=== PATIENT | male | born 1945 | race Asian ===

== ENCOUNTER 2017-11-24 11:07 | Inpatient (IN) | payer OTHER ==
[2017-11-24] VITALS (13 sets, daily range): BP systolic 101–149; BP diastolic 56–99; PULSE 89–108; TEMP 36.2–36.8; O2SAT 95–100; BMI 21.3
[~2017-11-24] VITALS: Ht 167.6 cm; Wt 62.3 kg
[~2017-11-24 11:07] MED LIST: ASPI81TA28 PO; CLOP1TAB54 PO; LEVO25TA PO; LPT/40 PO; METO50TA8 PO; NITR0.4S UT
[2017-11-24] MEDS ORDERED: SODIUM CHLORIDE 0.9% 1000ML 1,000 ML IV STA (11:36)
[2017-11-24] MEDS ORDERED: ONDANSETRON INJ 2 MG/ML 2 ML VIAL IV STA (11:36)
[2017-11-24 12:11] LABS: EOS % 0.9 %; HEMOGLOBIN 9.1 g/dL (14.0-18.0); LYMPH % 15.5 %; LYMPH ABS # 1.74 K/uL (1.2-3.4); MEAN CELL VOLUME 78.2 fL (80-100); MEAN CORPUSCULAR HEMOGLOBIN 25.4 pg (25-34); MEAN CORPUSCULAR HGB CONC 32.5 g/dl (32-36); MEAN PLATELET VOLUME 9.6 fL (7.4-10.4); MONO % 7.9 %; MONO ABS # 0.89 K/uL (0.11-0.59); NEUT % 73.9 %; NEUT ABS # 8.31 K/uL (1.4-6.5); PLATELET COUNT 209 K/uL (130-400); RED CELL DISTRIBUTION WIDTH CV 14.3 % (11.5-14.5); RED CELL DISTRIBUTION WIDTH SD 40.8 fL (36.4-46.3); WHITE BLOOD COUNT 11.24 K/uL (4.8-10.8)
[2017-11-24 12:20] LABS: INR 1.1 (0.9-1.1); PTT PATIENT 24.5 SECONDS (21.0-31.0)
--- NOTE | 2017-11-24 12:21 | DIAGNOSTIC IMAGING REPORT ---
SINGLE VIEW CHEST CLINICAL HISTORY: GI bleeding. FINDINGS: An AP, portable, semierect chest radiograph is compared to study dated 12/07/2013. The examination is degraded by portable technique, apical lordotic positioning, and patient rotation. The heart is top normal for projection. The pulmonary vasculature is noncongested. There is chronic elevation right hemidiaphragm. No airspace consolidation or large pleural effusion is identified. No pneumothorax is seen. The skeletal structures are osteopenic. The bony thorax is grossly intact. IMPRESSION: No acute cardiopulmonary abnormality. Electronically signed by: Yassine Moore M.D. 11/24/2017 12:20 PM Dictated Date/Time: 11/24/2017 12:19 PM
[2017-11-24 12:32] LABS: ALBUMIN 2.6 gm/dl (3.4-5.0); CREATININE 1.31 mg/dl (0.60-1.40); POTASSIUM 4.1 mmol/L (3.5-5.1)
[2017-11-24 12:43] LABS: TOTAL PROTEIN 5.6 gm/dl (6.4-8.2)
[2017-11-24] MEDS ORDERED: PRED10TA PO (13:01)
--- NOTE | 2017-11-24 13:21 | History and Physical ---
History & Physical Date & Time of Service: Nov 24, 2017 at 13:21 Chief Complaint: Dizziness,Diarrhea Primary Care Physician: No Doctor, Assigned History of Present Illness Source: patient, family Patient is a 72-year-old male with past medical history CKD III, AAA, CAD s/p CABG and stents, Ischemic Cardiomyopathy, HTN , Hypothyroidism, SVT S/P Ablation , CVA X 2, S/P R carotid endarterectomy and other problems presents with history of black tarry stools, dizziness and diarrhea since 3 days. He reports having loose watery diarrhea 2-3 bowel movements per day, noted to have black colored stools. Reports associated left upper quadrant abdominal discomfort, 4/ 10, nonradiating, no aggravating factors, which improves temporarily with BMs. Denies any nausea, vomiting, fever, chills, NSAIDs use, h/o GI bleed. Last colonoscopy was in 2011 which showed internal hemorrhoids. He is currently on aspirin, Plavix for CAD. He recently completed a prednisone taper course for possible acute gout. He states having severe dizziness since 3 days causing difficulty with ambulation. Denies any history of chest pain, SOB, pedal edema, diaphoresis, cough, hemoptysis, hematuria, fever, chills, fall, head trauma, headache, change in vision, dysuria.He was found to be hypertensive while in the ED which improved with IV fluids. Past Medical/Surgical History Medical Problems: (1) Anemia (2) Anemia (3) Cardiac stent placement (4) CHEST PAIN (5) Chest wall pain (6) Elevated troponin (7) Elevated troponin (8) Hypotension (9) Kidney stent placement (10) Kidney stone (11) Left-sided epistaxis (12) Malfunction of Hunt catheter (13) Malfunction of Hunt catheter (14) Myocardial infarction (15) Renal insufficiency (16) SVT (supraventricular tachycardia) (17) SVT (supraventricular tachycardia) (18) SVT (supraventricular tachycardia) (19) Urinary retention (20) UTI (urinary tract infection) (21) UTI (urinary tract infection) Family History FH: heart disease Kidney disease or stones Reviewed, not relevant. Social History Smoking Status: Former Smoker Smokeless Tobacco Use: No Drug Use: none Marital Status: Occupational Status: retired Immunizations History of Influenza Vaccine: Yes History of Tetanus Vaccine?: unk History of Pneumococcal: No History of Hepatitis B Vaccine: No Allergies Coded Allergies: No Known Allergies (Unverified , 11/24/17) Home Medications Scheduled Aspirin (Aspirin Ec), 81 MG PO DAILY Atorvastatin (Lipitor), 40 MG PO DAILY Clopidogrel Bisulfate (Plavix), 75 MG PO DAILY Finasteride (Finasteride), 5 MG PO DAILY Levothyroxine Sodium (Synthroid), 50 MCG PO QPM Lisinopril (Lisinopril), 10 MG PO DAILY Metoprolol Succ (Toprol Xl) (Toprol-Xl), 50 MG PO DAILY Nitroglycerin (Nitrostat), 0.4 MG UT PRN Miscellaneous Medications Prednisone Tab (Prednisone), 10 MG PO Review of Systems See HPI for pertinent positives & negatives. A total of 10 systems reviewed and were otherwise negative. Physical Exam Vital Signs Date Time Temp Pulse Resp B/P (MAP) Pulse Ox O2 Delivery O2 Flow Rate FiO2 11/24/17 13:16 108 20 85/71 100 Room Air 11/24/17 13:01 98/60 11/24/17 12:51 117 20 11/24/17 12:38 136/83 11/24/17 11:51 106 100 11/24/17 11:46 102 116/69 98 Room Air 11/24/17 11:45 132/72 11/24/17 11:43 102 20 102/72 98 Room Air 11/24/17 11:43 99 11/24/17 11:32 102/72 11/24/17 11:27 100 Room Air 11/24/17 11:17 36.3 111 18 72/48 100 Room Air General Appearance: WD/WN, no apparent distress Head: normocephalic, atraumatic Eyes: normal inspection, PERRL, EOMI ENT: normal ENT inspection, hearing grossly normal Neck: supple, trachea midline Respiratory/Chest: chest non-tender, lungs clear, normal breath sounds, no respiratory distress, no accessory muscle use Cardiovascular: regular rate, rhythm, no edema, no murmur, + tachycardia Abdomen/GI: normal bowel sounds, soft, + tenderness (mild LUQ) Back: normal inspection Extremities/Musculoskelatal: normal inspection, no pedal edema 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, no motor/sensory deficits, alert, normal mood/affect, oriented x 3 Skin: normal color, warm/dry, + pertinent finding (Vertical CABG scar on chest , Surgical Scar on Right side of neck) Diagnostics Laboratory Results Results Past 24 Hours Test 11/24/17 12:01 Range/Units White Blood Count 11.24 4.8-10.8 K/uL Red Blood Count 3.58 4.7-6.1 M/uL Hemoglobin 9.1 14.0-18.0 g/dL Hematocrit 28.0 42-52 % Mean Corpuscular Volume 78.2 80-100 fL Mean Corpuscular Hemoglobin 25.4 25-34 pg Mean Corpuscular Hemoglobin Concent 32.5 32-36 g/dl Platelet Count 209 130-400 K/uL Mean Platelet Volume 9.6 7.4-10.4 fL Neutrophils (%) (Auto) 73.9 % Lymphocytes (%) (Auto) 15.5 % Monocytes (%) (Auto) 7.9 % Eosinophils (%) (Auto) 0.9 % Basophils (%) (Auto) 0.0 % Neutrophils # (Auto) 8.31 1.4-6.5 K/uL Lymphocytes # (Auto) 1.74 1.2-3.4 K/uL Monocytes # (Auto) 0.89 0.11-0.59 K/uL Eosinophils # (Auto) 0.10 0-0.5 K/uL Basophils # (Auto) 0.00 0-0.2 K/uL RDW Standard Deviation 40.8 36.4-46.3 fL RDW Coefficient of Variation 14.3 11.5-14.5 % Immature Granulocyte % (Auto) 1.8 % Immature Granulocyte # (Auto) 0.20 0.00-0.02 K/uL Prothrombin Time 11.2 9.0-12.0 SECONDS Prothromb Time International Ratio 1.1 0.9-1.1 Activated Partial Thromboplast Time 24.5 21.0-31.0 SECONDS Partial Thromboplastin Ratio 0.9 Sodium Level 134 136-145 mmol/L Potassium Level 4.1 3.5-5.1 mmol/L Chloride Level 104 98-107 mmol/L Carbon Dioxide Level 21 21-32 mmol/L Anion Gap 9.0 3-11 mmol/L Blood Urea Nitrogen 49 7-18 mg/dl Creatinine 1.31 0.60-1.40 mg/dl Est Creatinine Clear Calc Drug Dose 43.9 ml/min Estimated GFR () 63.0 Estimated GFR (Non- 54.4 BUN/Creatinine Ratio 37.1 10-20 Random Glucose 219 70-99 mg/dl Calcium Level 8.0 8.5-10.1 mg/dl Total Bilirubin 0.7 0.2-1 mg/dl Aspartate Amino Transf (AST/SGOT) 10 15-37 U/L Alanine Aminotransferase (ALT/SGPT) 20 12-78 U/L Alkaline Phosphatase 71 45-117 U/L Troponin I 0.029 0-0.045 ng/ml Total Protein 5.6 6.4-8.2 gm/dl Albumin 2.6 3.4-5.0 gm/dl Globulin 3.0 2.5-4.0 gm/dl Albumin/Globulin Ratio 0.9 0.9-2 Lipase 123 73-393 U/L Thyroid Stimulating Hormone (TSH) 1.430 0.300-4.500 uIu/ml Free Thyroxine 1.19 0.80-1.60 ng/dl Diagnostic Radiology CXR: No acute cardiopulmonary abnormality EKG EKG: Sinus Tachycardia, QTC:458 Impression Assessment and Plan Melena/GI bleeding Symptomatic Anemia Was on ASA, Plavix for CAD Last Colonoscopy in 2011: Internal hemorrhoids INR:1.1 Hb:9.1 (Prior Hb around 14) 1 Unit PRBC given in ED Monitor H&H Transfuse PRBCs as needed Hold Aspirin, Plavix Avoids NASIDs Started on IV Protonix ggt NPO , IV fluids GI consulted Hypotension: Sinus Tachycardia Secondary to above Hold HTN meds IV fluids with caution as H/O ischemic cardiomyopathy Elevated Blood Sugar Levels: Likely secondary to recent prednisone use check A1C ISS, monitor BGs CKD III Cr stable Monitor renal function CAD s/p CABG and stents Ischemic Cardiomyopathy Held Aspirin, plavix continue metoprolol resume statin as able HTN currently Hypotensive Hold Lisinopril monitor Hypothyroidism: TSH: normal Continue Levothyroxine H/O SVT S/P Ablation continue metoprolol H/O CVA: PAD S/P R carotid endarterectomy ASA, Plavix held Resume statins as able DVT Px: SCDs Code Status: Full Code Disposition: Monitor in Tele Resuscitation Status VTE Prophylaxis Will order VTE Prophylaxis: Yes Reason for no VTE drug order: Contraindicated
[2017-11-24] MEDS ORDERED: DiphenhydrAMINE HCL 50 MG/ML VIAL IV STA (14:18)
[2017-11-24] MEDS ORDERED: ONDANSETRON INJ 2 MG/ML 2 ML VIAL IV PRN (14:30)
[2017-11-24] MEDS ORDERED: ACETAMINOPHEN 325 MG TAB PO PRN (14:30)
[2017-11-24] MEDS ORDERED: PRS5 PO (14:33)
[2017-11-24] MEDS ORDERED: LISI-461 PO (14:34)
[2017-11-24] MEDS ORDERED: ACETAMINOPHEN IV 650 MG in EMPTY BAG 0 ML IV PRN (14:45)
[2017-11-24] MEDS ORDERED: PANTOprazole INJ 80 MG in DEXTROSE 5% 100ML IV ONE (14:45)
[2017-11-24] MEDS ORDERED: GLUCOSE 40% GEL 15 GM TUBE PO PRN (15:00)
[2017-11-24] MEDS ORDERED: DEXTROSE 50% 50 ML SYR IV PRN (15:00)
[2017-11-24] MEDS ORDERED: GLUCAGON FOR INJ 1 MG VIAL SQ PRN (15:00)
[2017-11-24] MEDS ORDERED: GLUCOSE 10 TABS/TUBE PO PRN (15:00)
[2017-11-24] MEDS: PANTOprazole INJ 40 MG in DEXTROSE 5% 100ML IV SCH ×2 (15:23→19:24)
--- NOTE | 2017-11-24 15:35 | EMERGENCY ROOM VISIT NOTE ---
History Report prepared by Pavel: Keny Beckett Under the Supervision of: Dr. Yassine Juan M.D. First contact with patient: 11:28 Chief Complaint: DIZZY Stated Complaint: DIZZINESS,DIARRHEA History of Present Illness The patient is a 72 year old male who presents to the Emergency Room with complaints of intermittent, black, diarrhea beginning three days ago. He currently rates his discomfort a 4/10 in severity. The patient's daughter states he has been complaining of abdominal discomfort and been experiencing black diarrhea. She reports he is currently on aspirin and Plavix, and he has a history of stomach bleeding. The daughter notes he is also very lightheaded and dizzy. She denies loss of consciousness and vomiting. Source of History: family (daughter) Onset: three days ago Symptom Intensity: 4/10 Quality: other (black, diarrhea) Timing: intermittent Associated Symptoms: No LOC, No vomiting Note: Associated symptoms: lightheadedness, dizziness, abdominal discomfort Review of Systems See HPI for pertinent positives & negatives. A total of 10 systems reviewed and were otherwise negative. Past Medical & Surgical Medical Problems: (1) Cardiac stent placement (2) Kidney stent placement (3) Kidney stone (4) Melena (5) Myocardial infarction (6) Urinary retention Family History FH: heart disease Kidney disease or stones Social History Smoking Status: Never Smoker Alcohol Use: none Marital Status: Housing Status: lives with family Occupation Status: retired Current/Historical Medications Scheduled Aspirin (Aspirin Ec), 81 MG PO DAILY Atorvastatin (Lipitor), 40 MG PO DAILY Clopidogrel Bisulfate (Plavix), 75 MG PO DAILY Finasteride (Finasteride), 5 MG PO DAILY Levothyroxine Sodium (Synthroid), 50 MCG PO QPM Lisinopril (Lisinopril), 10 MG PO DAILY Metoprolol Succ (Toprol Xl) (Toprol-Xl), 50 MG PO DAILY Nitroglycerin (Nitrostat), 0.4 MG UT PRN Miscellaneous Medications Prednisone Tab (Prednisone), 10 MG PO Allergies Coded Allergies: No Known Allergies (Unverified , 11/24/17) Physical Exam Vital Signs Date Time Temp Pulse Resp B/P (MAP) Pulse Ox O2 Delivery O2 Flow Rate FiO2 11/24/17 14:21 98 20 100 11/24/17 14:01 123/61 11/24/17 13:31 102/61 11/24/17 13:21 107 20 98 11/24/17 13:16 108 20 85/71 100 Room Air 11/24/17 13:01 98/60 11/24/17 12:51 117 20 11/24/17 12:38 136/83 11/24/17 11:51 106 100 11/24/17 11:46 102 116/69 98 Room Air 11/24/17 11:45 132/72 11/24/17 11:43 102 20 102/72 98 Room Air 11/24/17 11:43 99 11/24/17 11:32 102/72 11/24/17 11:27 100 Room Air 11/24/17 11:17 36.3 111 18 72/48 100 Room Air Physical Exam GENERAL: Patient is in no acute distress. HEENT: No acute trauma, normocephalic atraumatic, mucous membranes moist, no nasal congestion, no scleral icterus. NECK: No stridor, no adenopathy, no meningismus, trachea is midline. LUNGS: Clear to auscultation bilaterally, no wheeze, no rhonchi, breath sounds equal. HEART: Tachycardic rate and regular rhythm. No murmur. ABDOMEN: Soft, nontender, bowel sounds positive, no hernias, no peritonitis. RECTAL: Black stool. Heme positive. EXTREMITIES: No cyanosis or edema, full range of motion of all the joints without pain or difficulty, no signs for acute trauma. NEUROLOGIC: Oriented x 3, no acute motor or sensory deficits, no focal weakness. SKIN: No rash, no jaundice, no diaphoresis. Pale. Medical Decision & Procedures ER Provider Diagnostic Interpretation: X-ray results as stated below per interpretation by me and the radiologist: SINGLE VIEW CHEST CLINICAL HISTORY: GI bleeding. FINDINGS: An AP, portable, semierect chest radiograph is compared to study dated 12/07/2013. The examination is degraded by portable technique, apical lordotic positioning, and patient rotation. The heart is top normal for projection. The pulmonary vasculature is noncongested. There is chronic elevation right hemidiaphragm. No airspace consolidation or large pleural effusion is identified. No pneumothorax is seen. The skeletal structures are osteopenic. The bony thorax is grossly intact. IMPRESSION: No acute cardiopulmonary abnormality. Electronically signed by: Yassine Moore M.D. 11/24/2017 12:20 PM Dictated Date/Time: 11/24/2017 12:19 PM Laboratory Results 11/24/17 12:01 Red Blood Count 3.58, Mean Corpuscular Volume 78.2, Mean Corpuscular Hemoglobin 25.4, Mean Corpuscular Hemoglobin Concent 32.5, Mean Platelet Volume 9.6, Neutrophils (%) (Auto) 73.9, Lymphocytes (%) (Auto) 15.5, Monocytes (%) (Auto) 7.9, Eosinophils (%) (Auto) 0.9, Basophils (%) (Auto) 0.0, Neutrophils # (Auto) 8.31, Lymphocytes # (Auto) 1.74, Monocytes # (Auto) 0.89, Eosinophils # (Auto) 0.10, Basophils # (Auto) 0.00 11/24/17 12:01 Test 11/24/17 12:01 White Blood Count 11.24 K/uL (4.8-10.8) Red Blood Count 3.58 M/uL (4.7-6.1) Hemoglobin 9.1 g/dL (14.0-18.0) Hematocrit 28.0 % (42-52) Mean Corpuscular Volume 78.2 fL (80-100) Mean Corpuscular Hemoglobin 25.4 pg (25-34) Mean Corpuscular Hemoglobin Concent 32.5 g/dl (32-36) Platelet Count 209 K/uL (130-400) Mean Platelet Volume 9.6 fL (7.4-10.4) Neutrophils (%) (Auto) 73.9 % Lymphocytes (%) (Auto) 15.5 % Monocytes (%) (Auto) 7.9 % Eosinophils (%) (Auto) 0.9 % Basophils (%) (Auto) 0.0 % Neutrophils # (Auto) 8.31 K/uL (1.4-6.5) Lymphocytes # (Auto) 1.74 K/uL (1.2-3.4) Monocytes # (Auto) 0.89 K/uL (0.11-0.59) Eosinophils # (Auto) 0.10 K/uL (0-0.5) Basophils # (Auto) 0.00 K/uL (0-0.2) RDW Standard Deviation 40.8 fL (36.4-46.3) RDW Coefficient of Variation 14.3 % (11.5-14.5) Immature Granulocyte % (Auto) 1.8 % Immature Granulocyte # (Auto) 0.20 K/uL (0.00-0.02) Prothrombin Time 11.2 SECONDS (9.0-12.0) Prothromb Time International Ratio 1.1 (0.9-1.1) Activated Partial Thromboplast Time 24.5 SECONDS (21.0-31.0) Partial Thromboplastin Ratio 0.9 Anion Gap 9.0 mmol/L (3-11) Est Creatinine Clear Calc Drug Dose 43.9 ml/min Estimated GFR () 63.0 Estimated GFR (Non- 54.4 BUN/Creatinine Ratio 37.1 (10-20) Calcium Level 8.0 mg/dl (8.5-10.1) Total Bilirubin 0.7 mg/dl (0.2-1) Aspartate Amino Transf (AST/SGOT) 10 U/L (15-37) Alanine Aminotransferase (ALT/SGPT) 20 U/L (12-78) Alkaline Phosphatase 71 U/L (45-117) Troponin I 0.029 ng/ml (0-0.045) Total Protein 5.6 gm/dl (6.4-8.2) Albumin 2.6 gm/dl (3.4-5.0) Globulin 3.0 gm/dl (2.5-4.0) Albumin/Globulin Ratio 0.9 (0.9-2) Lipase 123 U/L (73-393) Thyroid Stimulating Hormone (TSH) 1.430 uIu/ml (0.300-4.500) Free Thyroxine 1.19 ng/dl (0.80-1.60) Laboratory results reviewed by me. Medications Administered Medications (Trade) Dose Ordered Sig/[place] Route Start Time Stop Time Status Last Admin Dose Admin Ondansetron HCl (Zofran Inj) 4 mg NOW STAT IV 11/24/17 11:36 11/24/17 11:40 DC 11/24/17 13:24 4 MG Sodium Chloride 1,000 ml @ 999 mls/hr Q1H1M STAT IV 11/24/17 11:36 11/24/17 12:36 DC 11/24/17 13:18 999 MLS/HR Diphenhydramine HCl (Benadryl Inj) 25 mg NOW STAT IV 11/24/17 14:18 11/24/17 14:20 DC 11/24/17 14:36 25 MG Procedure Central Venous Catheter Indication: Need for IV access. Failed peripheral attempts. Catheter type: Triple lumen catheter Location: Right femoral vein Verbal consent was obtained after the risks and benefits were explained, including but not limited to pneumothorax, hemothorax, vessel injury, bleeding, scarring, infection, pain, and bone/joint/nerve damage. At this time, the risks of the procedure are less than the risks of NOT performing the procedure. A time out was taken and the correct patient and site identified. The patient was placed in the supine position and the skin was prepped in the standard fashion with chlorhexidine and full sterile drapes applied. The proper landmarks were identified with ultrasound, anesthetized with 1% lidocaine without epinephrine, and the needle was inserted through the skin in the standard fashion. The needle was carefully advanced into blood vessel lumen. The guidewire was placed uneventfully. The vessel is dilated and the catheter was placed. It was sutured into position. There was good blood return from all ports. The patient tolerated the procedure well and there were no complications. ECG Per My Interpretation Indication: tachycardia Rate (beats per minute): 102 Rhythm: sinus tachycardia Findings: no ectopy, other (No ST elevation. No PVC.) ED Course 1130: The patient was evaluated in room A04B. A complete history and physical exam was performed. 1136: Ordered Sodium Chloride 1000 ml @ 999 mls/hr IV, Ondansetron HCl 4mg IV 1237: IV team was unsuccessful. I was asked to place a central line. 1307: I was successful at placing the central line. Please refer to the procedure note for more information. I discussed results and treatment plan with the patient. He verbalizes agreement and understanding. The patient will be evaluated for further management. 1319: I discussed the patient's case [facility] The patient will be evaluated for further management and care. 1416: I reevaluated the patient. I also spoke with Dr. Lee again. The patient is going to receive a unit of blood in the ED. I explained the risks and benefits associated with the transfusion. I obtained consent from the patient. Medical Decision The patient is a 72 year old male who presents to the ED with complaints of intermittent, black, diarrhea. Differential diagnoses considered include upper or lower GI bleeding, anemia, electrolyte imbalance, dehydration, coagulopathy, renal or liver failure. There is a mild leukocytosis which could be consistent with infection or the stress of his situation. Hemoglobin is low at 9. No significant electrolyte abnormality or kidney failure. No coagulopathy or hepatitis. EKG shows a sinus tachycardia, no acute ischemia. Chest film does not show pneumonia, mediastinal widening or free air. Cardiac enzyme testing 1 is not consistent with acute cardiac injury. The patient presented tachycardic, hypotensive, pale with black heme positive stool. He was suffering, likely from an upper GI bleed. He received IV saline , IV Zofran. He was eventually given a unit of packed red blood cells, 25 mg of Benadryl was given IV as premedication. The patient did consent to have the blood transfused. The nursing staff and IV staff could not obtain adequate IV access peripherally. I did talk with the patient and family about a central line, they did consent. This line was placed in the right femoral vein without complication. The patient is quite ill and will require a hospital stay, I suspect he will require more than just the 1 unit of packed red blood cells. Workup for the source of bleeding is required. I did speak to case management. The on-call hospitalist was consulted. Medication Reconcilliation Current Medication List: was personally reviewed by me Blood Pressure Screening Patient's blood pressure: Low blood pressure Monitored by the hospitalist. Consults Time Called: 1309 Consulting Physician[facility] Return[facility] Call: [phone] I discussed the patient's case [facility] The patient will be evaluated for further management and care. 1416: I reevaluated the patient. I also spoke with Dr. Lee again. The patient is going to receive a unit of blood in the ED. I explained the risks and benefits associated with the transfusion. I obtained consent from the patient. Impression Primary Impression: GI bleed Additional Impressions: Hypotension Tachycardia Anemia Critical Care I have personally spent greater than 45 minutes of critical care time in the direct management of this patient. This includes bedside care, interpretation of diagnostic studies, and testing, discussion with consultants, patient, and family members, and other required patient management activities. This 45 minutes is in excess of all separately billable procedures. Scribe Attestation The scribe's documentation has been prepared under my direction and personally reviewed by me in its entirety. I confirm that the note above accurately reflects all work, treatment, procedures, and medical decision making performed by me. Departure Information Dispostion Being Evaluated By Hospitalist Referrals No Doctor, Assigned (PCP) Patient Instructions My [facility] Problem Qualifiers
[2017-11-24] MEDS: INSULIN ASPART 100 UNITS/ML 3 ML PEN SC SCH ×3 (16:15→21:00)
[2017-11-24] MEDS: SODIUM CHLORIDE 0.9% 1000ML 1,000 ML IV SCH (17:02)
--- NOTE | 2017-11-24 18:03 | Medical Consult ---
Consultation Note Date of Service Nov 24, 2017. Consultation Note Reason for consult: GIB HPI: 72 yo M with diffuse vasc disease in on Plavix and ASA in USOH until 3 days ago when developed gout, seen by PCP and began prednisone. He reports dizziness upon standing and dark, loose, frequent stools for the past 3 days. On admit this am, he was hypotens with systolic in the 70's improved with IVFs, black stool on rectal exam, had hgb of 9 (last was 12 in 04/14 with MCV 78 and 14 with MCV 78 last February) and BUN 43. Currently, asymptomatic on PPI gtt, normotensive with intermittent tachy. No h/o GIB in the past. Csocpy in 2011 for screening, unremarkable. Denies CP or anginal symptoms, CXR without CHF. He also reports 3 d h/o L flank pain worse with urination and sensation of bladder fullness Past Medical/Surgical History Medical Problems: MD, CKD, Nephrolith, SVT, urinary retention. Family History FH: heart disease Kidney disease or stones Reviewed, not relevant. Social History Smoking Status: Former Smoker Smokeless Tobacco Use: No Drug Use: none Marital Status: Occupational Status: retired Immunizations History of Influenza Vaccine: Yes History of Tetanus Vaccine?: unk History of Pneumococcal: No History of Hepatitis B Vaccine: No Allergies Coded Allergies: No Known Allergies (Unverified , 11/24/17) Home Medications Scheduled Aspirin (Aspirin Ec), 81 MG PO DAILY Atorvastatin (Lipitor), 40 MG PO DAILY Clopidogrel Bisulfate (Plavix), 75 MG PO DAILY Finasteride (Finasteride), 5 MG PO DAILY Levothyroxine Sodium (Synthroid), 50 MCG PO QPM Lisinopril (Lisinopril), 10 MG PO DAILY Metoprolol Succ (Toprol Xl) (Toprol-Xl), 50 MG PO DAILY Nitroglycerin (Nitrostat), 0.4 MG UT PRN Miscellaneous Medications Prednisone Tab (Prednisone), 10 MG PO Review of Systems See HPI for pertinent positives & negatives. A total of 10 systems reviewed and were otherwise negative. Physical Exam H&P v2 Physical Exam Date Time Temp Pulse Resp B/P (MAP) Pulse Ox O2 Delivery O2 Flow Rate FiO2 11/24/17 16:43 36.7 93 20 110/78 (89) 96 Room Air 11/24/17 16:15 36.8 99 18 102/99 (100) 97 Room Air 11/24/17 16:02 97 Room Air 11/24/17 15:44 36.8 93 21 107/59 99 11/24/17 15:44 36.8 91 20 107/59 99 Room Air 11/24/17 15:30 36.7 100 16 111/56 100 11/24/17 15:15 36.7 97 18 110/93 99 11/24/17 15:00 36.7 102 15 102/64 99 11/24/17 14:56 99 Room Air 11/24/17 14:45 36.7 108 16 149/96 100 11/24/17 14:44 36.7 108 16 149/96 99 11/24/17 14:31 98 20 131/73 99 Room Air 11/24/17 14:21 98 20 100 11/24/17 14:01 123/61 11/24/17 13:31 102/61 11/24/17 13:21 107 20 98 11/24/17 13:16 108 20 85/71 100 Room Air 11/24/17 13:01 98/60 11/24/17 12:51 117 20 11/24/17 12:38 136/83 11/24/17 11:51 106 100 11/24/17 11:46 102 116/69 98 Room Air 11/24/17 11:45 132/72 11/24/17 11:43 102 20 102/72 98 Room Air 11/24/17 11:43 99 11/24/17 11:32 102/72 11/24/17 11:27 100 Room Air 11/24/17 11:17 36.3 111 18 72/48 100 Room Air Comfortable, no distress, lying in bed, asking for food Head: normocephalic, atraumatic Eyes: normal inspection, PERRL, EOMI ENT: normal ENT inspection, hearing grossly normal Neck: supple, trachea midline Respiratory/Chest: chest non-tender, lungs clear, normal breath sounds, no respiratory distress, no accessory muscle use Cardiovascular: regular rate, rhythm, no edema, no murmur, Abdomen/GI: normal bowel sounds, soft, mild tenderness in LLQ Back: normal inspection Extremities/Musculoskelatal: normal inspection, no pedal edema 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 RECTAL: no stool in vault Diagnostics H&P v2 Diagnostics Laboratory Results Results Past 24 Hours Test 11/24/17 12:01 Range/Units White Blood Count 11.24 4.8-10.8 K/uL Red Blood Count 3.58 4.7-6.1 M/uL Hemoglobin 9.1 14.0-18.0 g/dL Hematocrit 28.0 42-52 % Mean Corpuscular Volume 78.2 80-100 fL Mean Corpuscular Hemoglobin 25.4 25-34 pg Mean Corpuscular Hemoglobin Concent 32.5 32-36 g/dl Platelet Count 209 130-400 K/uL Mean Platelet Volume 9.6 7.4-10.4 fL Neutrophils (%) (Auto) 73.9 % Lymphocytes (%) (Auto) 15.5 % Monocytes (%) (Auto) 7.9 % Eosinophils (%) (Auto) 0.9 % Basophils (%) (Auto) 0.0 % Neutrophils # (Auto) 8.31 1.4-6.5 K/uL Lymphocytes # (Auto) 1.74 1.2-3.4 K/uL Monocytes # (Auto) 0.89 0.11-0.59 K/uL Eosinophils # (Auto) 0.10 0-0.5 K/uL Basophils # (Auto) 0.00 0-0.2 K/uL RDW Standard Deviation 40.8 36.4-46.3 fL RDW Coefficient of Variation 14.3 11.5-14.5 % Immature Granulocyte % (Auto) 1.8 % Immature Granulocyte # (Auto) 0.20 0.00-0.02 K/uL Prothrombin Time 11.2 9.0-12.0 SECONDS Prothromb Time International Ratio 1.1 0.9-1.1 Activated Partial Thromboplast Time 24.5 21.0-31.0 SECONDS Partial Thromboplastin Ratio 0.9 Sodium Level 134 136-145 mmol/L Potassium Level 4.1 3.5-5.1 mmol/L Chloride Level 104 98-107 mmol/L Carbon Dioxide Level 21 21-32 mmol/L Anion Gap 9.0 3-11 mmol/L Blood Urea Nitrogen 49 7-18 mg/dl Creatinine 1.31 0.60-1.40 mg/dl Est Creatinine Clear Calc Drug Dose 43.9 ml/min Estimated GFR () 63.0 Estimated GFR (Non- 54.4 BUN/Creatinine Ratio 37.1 10-20 Random Glucose 219 70-99 mg/dl Calcium Level 8.0 8.5-10.1 mg/dl Total Bilirubin 0.7 0.2-1 mg/dl Aspartate Amino Transf (AST/SGOT) 10 15-37 U/L Alanine Aminotransferase (ALT/SGPT) 20 12-78 U/L Alkaline Phosphatase 71 45-117 U/L Troponin I 0.029 0-0.045 ng/ml Total Protein 5.6 6.4-8.2 gm/dl Albumin 2.6 3.4-5.0 gm/dl Globulin 3.0 2.5-4.0 gm/dl Albumin/Globulin Ratio 0.9 0.9-2 Lipase 123 73-393 U/L Thyroid Stimulating Hormone (TSH) 1.430 0.300-4.500 uIu/ml Free Thyroxine 1.19 0.80-1.60 ng/dl A/P: Anemia, UGIB - DDX PUD, acid peptic disease - PPI gtt overnight, serial hgb and xfuse for hgb 7-8, EGD tomorrow - Hold ASA/Plavix for now; anticipate early resumption of ASA.
[2017-11-24 19:53] LABS: HEMATOCRIT 29.1 % (42-52); HEMOGLOBIN 9.7 g/dL (14.0-18.0)
[2017-11-25] VITALS (20 sets, daily range): BP systolic 109–168; BP diastolic 63–93; PULSE 70–98; TEMP 36.3–37.1; O2SAT 95–100
[2017-11-25 00:44] LABS: HEMOGLOBIN 9.6 g/dL (14.0-18.0)
[2017-11-25] MEDS: PANTOprazole INJ 40 MG in DEXTROSE 5% 100ML IV SCH ×5 (01:18→21:15)
[2017-11-25] MEDS: SODIUM CHLORIDE 0.9% 1000ML 1,000 ML IV SCH ×2 (05:49→18:09)
[2017-11-25] MEDS: INSULIN ASPART 100 UNITS/ML 3 ML PEN SC SCH ×4 (07:00→21:00)
[2017-11-25 07:08] LABS: BASO % 0.1 %; BASO ABS # 0.01 K/uL (0-0.2); EOS % 2.2 %; EOS ABS # 0.16 K/uL (0-0.5); HEMATOCRIT 28.1 % (42-52); HEMOGLOBIN 9.2 g/dL (14.0-18.0); IG# 0.07 K/uL (0.00-0.02); LYMPH % 21.9 %; MEAN CELL VOLUME 81.9 fL (80-100); MEAN CORPUSCULAR HEMOGLOBIN 26.8 pg (25-34); MEAN CORPUSCULAR HGB CONC 32.7 g/dl (32-36); MONO % 8.6 %; MONO ABS # 0.63 K/uL (0.11-0.59); NEUT % 66.2 %; NEUT ABS # 4.84 K/uL (1.4-6.5); PLATELET COUNT 162 K/uL (130-400); RED CELL DISTRIBUTION WIDTH CV 14.9 % (11.5-14.5); WHITE BLOOD COUNT 7.31 K/uL (4.8-10.8)
[2017-11-25 07:49] LABS: CALCIUM 7.8 mg/dl (8.5-10.1); CREATININE 1.48 mg/dl (0.60-1.40); POTASSIUM 3.9 mmol/L (3.5-5.1)
[2017-11-25] MEDS: METOPROLOL SUCC 50MG EXT REL TAB PO SCH (08:20)
[2017-11-25] MEDS: LEVOTHYROXINE SODIUM INJ 25 MCG in SYRINGE 0 ML IV SCH (08:20)
--- NOTE | 2017-11-25 08:29 | Progress Note ---
Internal Med Progress Note Date of Service: Nov 25, 2017. Provider Documentation: SUBJECTIVE: Seen and examined at bedside States feeling better today Dizziness, abdominal discomfort resolved Had 5 BMs with black stools yesterday Denies chest pain, SOB, nausea Family at bedside No other complaints Planned for EGD later today OBJECTIVE: Vital Signs-as noted below General Appearance: WD/WN, no apparent distress Head: normocephalic, atraumatic Eyes: normal inspection, PERRL, EOMI ENT: normal ENT inspection, hearing grossly normal Neck: supple, trachea midline Respiratory/Chest: chest non-tender, lungs clear, normal breath sounds, no respiratory distress, no accessory muscle use Cardiovascular: regular rate, rhythm, no edema, no murmur Abdomen/GI: normal bowel sounds, soft, non tender Back: normal inspection Extremities/Musculoskelatal: normal inspection, no pedal edema 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 ASSESSMENT & PLAN: Melena/GI bleeding Acute blood loss anemia Was on ASA, Plavix for CAD Last Colonoscopy in 2011: Internal hemorrhoids INR:1.1 Hb:9.2 S/P 2 Unit PRBC Monitor H&H Transfuse PRBCs as needed Hold Aspirin, Plavix Avoids NASIDs Continue IV Protonix ggt NPO , IV fluids Appreciate GI Input Planned for EGD today Abnormal EKG: ST changes in anterior leads Patient denies chest pain/discomfort Troponin X2: negative Trend cardiac enzymes Check ECHO Cardiology consulted Hypotension: Sinus Tachycardia: Secondary to above Resolved Hold HTN meds IV fluids with caution as H/O ischemic cardiomyopathy Elevated Blood Sugar Levels: Likely secondary to recent prednisone use check A1C:pending ISS, monitor BGs CKD III Cr stable Monitor renal function CAD s/p CABG and stents Ischemic Cardiomyopathy Held Aspirin, plavix continue metoprolol resume statin as able HTN Initially presented with Hypotension Hold Lisinopril continue coreg monitor Hypothyroidism: TSH: normal Continue Levothyroxine H/O SVT S/P Ablation continue metoprolol H/O CVA: PAD S/P R carotid endarterectomy ASA, Plavix held Resume statins as able DVT Px: SCDs Code Status: Full Code Disposition: Monitor in Tele Vital Signs: Date Time Temp Pulse Resp B/P (MAP) Pulse Ox O2 Delivery O2 Flow Rate FiO2 11/25/17 16:00 Room Air 11/25/17 15:58 36.5 75 18 146/77 (100) 100 Room Air 11/25/17 14:53 81 18 146/76 (99) 99 Room Air 11/25/17 13:53 74 18 134/72 (92) 99 Room Air 11/25/17 12:56 73 17 168/78 (108) 100 Room Air 11/25/17 12:23 36.5 72 15 147/87 (107) 99 Room Air 11/25/17 12:08 36.5 74 17 136/81 99 11/25/17 12:00 95 Room Air 11/25/17 11:53 74 18 110/80 (90) 97 Room Air 11/25/17 11:38 70 17 115/74 (88) 98 Room Air 11/25/17 11:23 36.4 72 18 111/81 (91) 99 Room Air 11/25/17 11:08 36.5 75 17 112/67 95 11/25/17 11:08 36.5 72 17 112/67 (82) 95 Room Air 11/25/17 10:48 77 18 114/66 (82) 98 Room Air 11/25/17 10:40 36.5 72 16 123/63 100 11/25/17 10:38 74 16 116/65 (82) 98 Room Air 11/25/17 10:10 37.1 75 16 109/65 99 11/25/17 09:55 36.7 84 16 154/93 100 11/25/17 08:00 98 Room Air 11/25/17 06:53 36.7 83 19 142/69 (93) 98 Room Air 11/25/17 04:31 98 Room Air 11/25/17 03:15 36.5 98 20 150/79 (102) 98 Room Air 11/24/17 23:50 95 Room Air 11/24/17 23:33 36.7 89 21 101/58 (72) 95 Room Air 11/24/17 20:00 Room Air 11/24/17 19:39 36.2 89 18 109/65 (80) 96 Room Air Lab Results: Results Past 24 Hours Test 11/24/17 18:46 11/24/17 19:27 11/24/17 20:20 11/24/17 21:00 Range/Units Bedside Glucose 134 179 70-99 mg/dl Hemoglobin 9.7 14.0-18.0 g/dL Hematocrit 29.1 42-52 % Stool Occult Blood NEGATIVE NEGATIVE Test 11/25/17 00:26 11/25/17 00:30 11/25/17 06:07 11/25/17 06:34 Range/Units Hemoglobin 9.6 9.2 14.0-18.0 g/dL Hematocrit 29.0 28.1 42-52 % Bedside Glucose 153 157 70-99 mg/dl White Blood Count 7.31 4.8-10.8 K/uL Red Blood Count 3.43 4.7-6.1 M/uL Mean Corpuscular Volume 81.9 80-100 fL Mean Corpuscular Hemoglobin 26.8 25-34 pg Mean Corpuscular Hemoglobin Concent 32.7 32-36 g/dl Platelet Count 162 130-400 K/uL Mean Platelet Volume 10.0 7.4-10.4 fL Neutrophils (%) (Auto) 66.2 % Lymphocytes (%) (Auto) 21.9 % Monocytes (%) (Auto) 8.6 % Eosinophils (%) (Auto) 2.2 % Basophils (%) (Auto) 0.1 % Neutrophils # (Auto) 4.84 1.4-6.5 K/uL Lymphocytes # (Auto) 1.60 1.2-3.4 K/uL Monocytes # (Auto) 0.63 0.11-0.59 K/uL Eosinophils # (Auto) 0.16 0-0.5 K/uL Basophils # (Auto) 0.01 0-0.2 K/uL RDW Standard Deviation 44.0 36.4-46.3 fL RDW Coefficient of Variation 14.9 11.5-14.5 % Immature Granulocyte % (Auto) 1.0 % Immature Granulocyte # (Auto) 0.07 0.00-0.02 K/uL Sodium Level 143 136-145 mmol/L Potassium Level 3.9 3.5-5.1 mmol/L Chloride Level 113 98-107 mmol/L Carbon Dioxide Level 26 21-32 mmol/L Anion Gap 4.0 3-11 mmol/L Blood Urea Nitrogen 31 7-18 mg/dl Creatinine 1.48 0.60-1.40 mg/dl Est Creatinine Clear Calc Drug Dose 41.3 ml/min Estimated GFR () 54.4 Estimated GFR (Non- 46.9 BUN/Creatinine Ratio 20.9 10-20 Random Glucose 147 70-99 mg/dl Estimated Average Glucose 154 mg/dl Hemoglobin A1c 7.0 4.5-5.6 % Calcium Level 7.8 8.5-10.1 mg/dl Magnesium Level 2.1 1.8-2.4 mg/dl Troponin I 0.036 0-0.045 ng/ml Test 11/25/17 08:03 11/25/17 12:14 11/25/17 14:10 11/25/17 16:26 Range/Units Lab Scanned Report Blood Transfusion Tag [id number] Bedside Glucose 154 146 70-99 mg/dl Hemoglobin 12.0 14.0-18.0 g/dL Hematocrit 35.6 42-52 % Troponin I 0.047 0-0.045 ng/ml
[2017-11-25] MEDS ORDERED: MIDAZOLAM HCL 1 MG/ML 2ML VIAL ONE (09:35)
[2017-11-25] MEDS ORDERED: NITROGLYCERIN/D5W 100MCG/ML 20ML SYR ONE (09:35)
[2017-11-25] MEDS ORDERED: FENTANYL CITRATE INJ 50 MCG/1 ML 2 ML VIAL ONE (09:35)
[2017-11-25] MEDS ORDERED: NiCARDipine HCL INJ 2.5 MG/ML 10 ML AMP ONE (09:35)
[2017-11-25] MEDS ORDERED: HEPARIN SOD (PORCINE) 1000 UNIT/ML 10 ML VIAL ONE (09:35)
[2017-11-25] MEDS ORDERED: DOPamine 400MG / 250ML D5W ONE (10:20)
--- NOTE | 2017-11-25 10:32 | Clinical Documentation Query ---
CLINICAL DOCUMENTATION QUERY 72 yo male admitted with a GI bleed. HGB was 9.1, trending down from 14 and patient received 1 unit PRBCs. In your clinical opinion is this patient being managed for: ( x ) Acute blood loss anemia ( ) Not Agree ( ) Other explanation of clinical findings (Please Explain. If no explanation given, this would be considered a no response.) ( ) Unable to determine ( ) Need to Discuss (Please call CDS via extension or qliq. If no interaction occurs this is considered a no response.) The medical record reflects the following clinical findings, treatment, and risk factors. Clinical Indicators: As above, sinus tachycardia, hypotension Treatment: As above, serial H&H, type and screen 4 units PRBCs, central line Risk Factors: Age, GI bleed Please clarify and document your clinical opinion in the progress notes and discharge summary. Terms such as "probable", "suspected", "likely", "questionable", "possible", or "still to be ruled out" are acceptable. IF IN AGREEMENT, YOU MUST DOCUMENT ABOVE DIAGNOSTIC STATEMENT IN DAILY PROGRESS NOTES AND DISCHARGE SUMMARY. This document is not part of the patient's record. Thank You, Lili Gardner RN [phone]
--- NOTE | 2017-11-25 10:52 | Pre Sedation Assessment ---
Pre Sedation Assessment General Date of Sedation: Nov 25, 2017. Vital Signs Past 12 Hours Date Time Temp Pulse Resp B/P (MAP) Pulse Ox O2 Delivery O2 Flow Rate FiO2 11/25/17 10:48 77 18 114/66 (82) 98 Room Air 11/25/17 10:40 36.5 72 16 123/63 100 11/25/17 10:10 37.1 75 16 109/65 99 11/25/17 09:55 36.7 84 16 154/93 100 11/25/17 06:53 36.7 83 19 142/69 (93) 98 Room Air 11/25/17 04:31 98 Room Air 11/25/17 03:15 36.5 98 20 150/79 (102) 98 Room Air 11/24/17 23:50 95 Room Air 11/24/17 23:33 36.7 89 21 101/58 (72) 95 Room Air Review Cardiovascular: regular rate, rhythm, no edema Lungs: chest non-tender, lungs clear Pre-Sedation Airway Assessment Smoking Status: Former Smoker Hx of Sleep Apnea: No Hx of difficult intubation: No Short Thick Neck: No Thyro-mental Distance: > 3 Finger Breadths Oral Cavity: Dentures Mallampati Classification: Class II ASA Classification: Class III Procedure Planning Contraindications for Sedation: None Current Medications Reviewed: Yes Notes The planned sedation has been discussed with the patient. Informed Consent was obtained. I have identified the patient, determined the appropriateness of sedation and have assessed the patient immediately prior to the procedure. All medicine(s) and interventions are by my order.
--- NOTE | 2017-11-25 10:52 | Post Sedation Assessment ---
Post Sedation Assessment General Date of Sedation Nov 25, 2017. Vital Signs: Vital Signs Past 12 Hours Date Time Temp Pulse Resp B/P (MAP) Pulse Ox O2 Delivery O2 Flow Rate FiO2 11/25/17 10:48 77 18 114/66 (82) 98 Room Air 11/25/17 10:40 36.5 72 16 123/63 100 11/25/17 10:10 37.1 75 16 109/65 99 11/25/17 09:55 36.7 84 16 154/93 100 11/25/17 06:53 36.7 83 19 142/69 (93) 98 Room Air 11/25/17 04:31 98 Room Air 11/25/17 03:15 36.5 98 20 150/79 (102) 98 Room Air 11/24/17 23:50 95 Room Air 11/24/17 23:33 36.7 89 21 101/58 (72) 95 Room Air Post Procedure Recovery Score Activity: (2) Moves 4 extremities * Respiration: (2) Deep breath/cough Circulation: (2) +/-20% PreAnes Value Consciousness: (2) Fully Awake Oxygen Saturation: (2) > 92% On Room Air Post Anesthesia Score: 10 Discharge Sedation Level of Care: Fast Track Phase II Post Sedation Plan On clinical assessment, the patient appears to have tolerated the sedation without complications. Patient is recovering as anticipated. Patient will continue to be monitored by nursing and may be discharged when sedation discharge criteria are met per below protocol. Upon Completions of procedure and additional 15 minutes continue every 5 minute vital signs and the P.A.R. score; then discharge to a Phase I or Fast Track to Phase II per the following guidelines: * Discharge Patient to appropriate Phase II area if PAR is 8 or greater or return to pre- procedure baseline. The post - procedure orders will be as directed. * If PAR score is less than 8 or not return to pre-procedure baseline then patient will follow Phase I monitoring till PAR is reached for Phase II. The Phase I may be done in procedure room or may call to secure a Phase I area. * If naloxone or flumazenil are used for reversal, hold in Phase I for an additional 60 -120 minutes before discharge to Phase II. Please call the Sedation Physician to re-evaluate and complete post-note for discharge to Phase II area. Do NOT discharge from procedure sedation or Phase 1 until post- sedation evaluation note is complete by procedure /sedation MD Sedation Discharge Instructions to be given to the patient at discharge to home.
--- NOTE | 2017-11-25 10:57 | Progress Note ---
Progress Note Date of Service Nov 25, 2017. Progress Note Cardiac cath revealed no significant obstructive lesions to account for ST segment elevations. No intervention necessary. EKG changes likely represent demand ischemia secondary to anemia. Would recommend completing GIB work up as per our GI colleagues. No benefit to delaying GI procedures from cardiac standpoint. Pt is a moderate risk for adverse periprocedural cardiovascular event with risk approx 5%, patient and family state that they understand are accepting of risk and wish to proceed.
--- NOTE | 2017-11-25 10:58 | [facility] Post Operative Brief Note ---
Preliminary Procedure Note Procedure Date Nov 25, 2017. 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 Severe mid LAD in-stent restenosis. ANAND 3 flow distal Moderate to severe disease in dominant, mid circumflex. ANAND 3 flow distal. No acute obstructive disease. OK to proceed with endoscopy Recommendations Medical therapy and/or Counseling Specimens None Anesthesia Moderate Procedural Complication(s) None Disposition PCU
--- NOTE | 2017-11-25 11:13 | Cardiac Catheterization ---
Procedure Note Procedure Date Nov 25, 2017. Pre-Procedure Diagnosis Acute Coronary Syndrome AUC Score 8 Post-Procedure Diagnosis Severe CAD, Normal Intracardiac Pressures Procedure(s) Performed Coronary Angiography, Left Heart Cath, Ultrasound Guided Vascular Access, Bypass Graft Angiography, Femoral Artery Angiography Floor Tech Lisandro Manager [employer](s) [place] Estimated Blood Loss 10 Medication(s) Fentanyl, Versed, Lidocaine 1% Summary of Findings Indication: Anterior ST elevations in setting of acute GI Bleed. Access: 5Fr left FINISH SPECIALIST (ultrasound guided) Catheters: JL4, JR4, LCB, AR1 Findings: LM - Luminal irregularities LAD - 30-40% ostial stenosis; 80-90% focal in-stent restenosis in mid LAD after take-off of 2nd diagonal. Circumflex - Dominant, diffuse 40-50% ostial to mid disease. Prior stent at ostium of high 1st OM is completely occluded. 20% ostial in small OM2. Distal luminal irregularities into L-PDA RCA - Small, non-dominant with luminal irregularities SVG-OM1 -- Widely patent with distal luminal irregularities in OM1 SVG-mid LAD -- Widely patent with 60-70% stenosis at anastomosis; minimal disease in distal LAD as wraps around apex. competitive flow in mid segment. LVEDP - 12 Femoral angiography -- suitable for closure device. mild calcified disease at ostium of external iliac Arterial Closure: Mynx Summary: 1. Severe chronic multivessel coronary artery disease - 80-90% mid LAD in-stent restenosis - 40-50% ostial to mid circumflex. 100% occluded ostial OM1 stent 2. Widely patent vein grafts to OM1, mid LAD (60-70% stenosis at LAD anastomosis ). 3. Normal intracardiac filling pressure Recommendations: Chronic stable disease, no acute obstructive lesions. OK to proceed with endoscopy as needed. Continued ASCVD risk factor modification per Dr. Couch. Hemodynamics Rest Ao: 123/60/87 Final Ao: 88/39/61 LV: 92/12 Recommendations Medical therapy and/or Counseling Specimens None Radiation Exposure (mGy) 1209 Contrast (mls) 95 Fluids (cc crystalloids) 265 Drains None Anesthesia Moderate Procedural Complication(s) None Disposition PCU ACC Data Cardiac Status Clinical evaluation leading to the procedure CAD Presntation: Non STEMI Anginal Classification: CCS I Heart Failure: No, NYHA Class: CCS I Cardiogenic Shock w/in 24Hrs: No Cardiac Arrest w/in 24Hrs: No Imaging studies past 6 months: Yes Stress studies past 6 months: No Closure Device Percutaneous Entry Location: Femoral Closure Device: Mynx Recommendations: Medical therapy and/or Counseling Intraprocedure Events Significant Dissection: No Perforation: No
--- NOTE | 2017-11-25 11:28 | HISTORY & PHYSICAL EXAMINATION ---
DATE OF ADMISSION: 11/25/[address] Chicas. REASON FOR CONSULTATION: EKG changes. HISTORY OF PRESENT ILLNESS: Mr. Ruby is a very pleasant 72-year-old gentleman who normally follows with me as an outpatient for his history of coronary artery disease. He presented to [facility] Emergency Department on 11/24/2017 with the complaints of dark tarry stools, dizziness, and diarrhea for the last few days. The patient notes that his bowel movements changed 3 days ago. His stool turned black. He was having some mild left upper and lower quadrant discomfort that did not radiate into his chest, and he came in to the Emergency Department. Upon arrival, he was found to be significantly anemic. He was given 1 unit of packed red blood cells for hemoglobin of 9.1, and he was admitted to telemetry overnight. Also of note, upon presentation to the ER, his EKG was unremarkable. Patient remained on telemetry overnight, asymptomatic but continued dark tarry stools and diarrhea, but his abdominal discomfort resolved, and then on the morning of 11/25/2017, a routine EKG was performed and showed new ST segment elevations in the anterior leads, with reciprocal ST segment depressions in the lateral leads. I was asked to see the patient urgently. I saw the patient at the bedside and woke him up. His son was present who helped with translation as per the patient request, and the patient says he is feeling fine. He has no complaints of chest pain, shortness of breath, palpitations, diaphoresis, lightheadedness, dizziness, or syncope. States his abdominal discomfort has resolved, and right now, he is feeling fine, and he denies experiencing any chest pain for the last several days. Of note, his hemoglobin only went to 9.2 with 1 unit of packed red blood cells. PAST SURGICAL HISTORY: 1. Coronary artery disease, status post CABG x2 with a vein graft to the LAD and vein graft to OM1 in 2013. 2. Multiple bare metal stent placements to the proximal LAD. 3. History of SVT with bypass tract ablation. 4. Right-sided carotid endarterectomy. MEDICAL ILLNESSES: 1. Coronary artery disease, status post CABG x2 and multiple PCIs to the LAD. 2. Postoperative atrial fibrillation, resolved. 3. History of SVT with a bypass tract, status post ablation. 4. Carotid stenosis, status post right-sided endarterectomy. 5. Ischemic cardiomyopathy, most recent EF 38%. 6. Hypertension. 7. History of tobacco abuse. 8. Miniscule abdominal aortic aneurysm. FAMILY HISTORY: Noncontributory. SOCIAL HISTORY: The patient is a former smoker, quit in 2013. Denies any alcohol or recreational drug use. He is and lives at home with his family. REVIEW OF SYSTEMS: As per HPI. All other review of systems reviewed and negative at this time. ALLERGIES: No known drug allergies. MEDICATIONS AN OUTPATIENT: 1. Aspirin 81 mg daily. 2. Atorvastatin 80 mg daily. 3. Plavix 75 mg daily. 4. Lisinopril 10 mg daily. 5. Toprol-XL 50 mg daily. 6. Proscar daily. 7. Levoxyl daily. PHYSICAL EXAMINATION: VITAL SIGNS: Temperature 36.7, pulse 83, respiratory rate 12, blood pressure 142/69. GENERAL: Awake, alert, oriented x3, in no acute distress. HEENT: Normocephalic and atraumatic. Pupils equal, round, and reactive to light and accommodation. Extraocular muscles intact. Anicteric sclerae. Moist mucous membranes. NECK: No JVD, no bruit. CARDIOVASCULAR: Regular. Positive S4. Normal S1 and S2. No S3. No murmurs or rubs. PULMONARY: Clear to auscultation bilaterally. No rales, rhonchi, or wheezing. ABDOMEN: Bowel sounds x4, soft, mild diffuse tenderness. No rebound or guarding. No organomegaly. EXTREMITIES: No clubbing, cyanosis, or edema. +2 pedal pulses bilaterally. SKIN: Warm and dry. TEST RESULTS: A 12-lead EKG performed on 11/24/2017 at 11:36 independently reviewed at this time, shows sinus tachycardia at 102 beats per minute, normal axis, normal intervals, no signs of ischemia. Repeat EKG performed on 11/25/2017 at 0825 shows greater than [address] segment elevations in leads V2, V3, V4, with ST segment depressions in leads I, aVL, and V6. LABORATORY STUDIES OF SIGNIFICANCE: Hemoglobin 9.2, platelet count 162, INR of 1.1. Sodium 143, potassium 3.9, BUN 31, creatinine 1.5. Most recent 2D echocardiogram performed in June 2016 was read as normal LV chamber size and wall thickness, moderately reduced LV systolic function, EF 38%; moderate to severe hypokinesis of the mid to apical anterior lateral, anterior anteroseptal, inferior septal, and inferior valentine; grade 1 diastolic dysfunction, mild aortic regurgitation. Urgent bedside echocardiogram performed today, preliminary review shows no significant change. IMPRESSION: 1. Asymptomatic ST segment elevations in the anterior leads. 2. History of coronary artery disease with coronary artery bypass graft x2, multiple interventions to the left anterior descending. 3. Ischemic cardiomyopathy, unchanged. 4. Gastrointestinal bleed. 5. Anemia requiring transfusion. RECOMMENDATIONS: It was my pleasure to see Mr. Ruby in consultation today. At this point, the patient is asymptomatic but does have ST segment elevations on his EKG; however, his echocardiogram is unhelpful given the old scar of the anterior wall, so I do not believe the patient is clinically suffering an ST segment elevation PR, however, is most likely more medical representative of type 2 myocardial infarction from demand ischemia with his anemia, so at this point he will be transfused a second unit, will undergo a hopefully only diagnostic only cardiac catheterization without any significant anticoagulation, and should it be unchanged compared to previous, then the patient will be considered an acceptable risk to proceed with further GI studies that are deemed necessary by our gastroenterology colleagues. Otherwise, his aspirin will be continued. His Plavix can be held for now, and further recommendations to follow the cardiac catheterization.
[2017-11-25] MEDS ORDERED: SODIUM CHLORIDE 0.9% 1000ML 1,000 ML IV SCH (12:00)
--- NOTE | 2017-11-25 12:51 | Progress Note ---
Progress Note Date of Service Nov 25, 2017. (Sandra Han CRNP) Progress Note Pt is a 72 y/o male, seen for melena, anemia. Some melena overnight but H/H stable. Initially planned for EGD evaluation today, however needed to undergo cardiac cath this AM. Thus we postponed EGD eval to tomorrow 11/26/17. Pls keep NPO after midnight. Change of plans have been reviewed with pt and his family. (Sandra Han CRNP) I saw and evaluated the patient. Due to his cardiac catheterization this morning we are electing to hold his upper endoscopy till tomorrow as there was concerns about the positioning for the patient. (Pernell Guzman, DO)
[2017-11-25 14:29] LABS: HEMATOCRIT 35.6 % (42-52)
[2017-11-25 19:02] LABS: HEMATOCRIT 35.2 % (42-52); HEMOGLOBIN 11.8 g/dL (14.0-18.0)
[2017-11-26] VITALS (9 sets, daily range): BP systolic 118–155; BP diastolic 65–83; PULSE 66–81; TEMP 36.3–37.1; O2SAT 95–97; Ht 167.6 cm; Wt 62.3 kg
[2017-11-26] MEDS: PANTOprazole INJ 40 MG in DEXTROSE 5% 100ML IV SCH ×5 (01:39→22:30)
[2017-11-26 05:59] LABS: BASO % 0.1 %; BASO ABS # 0.01 K/uL (0-0.2); EOS % 3.5 %; EOS ABS # 0.24 K/uL (0-0.5); HEMATOCRIT 33.4 % (42-52); HEMOGLOBIN 11.2 g/dL (14.0-18.0); IG# 0.05 K/uL (0.00-0.02); LYMPH % 18.1 %; LYMPH ABS # 1.25 K/uL (1.2-3.4); MEAN CELL VOLUME 82.9 fL (80-100); MEAN CORPUSCULAR HEMOGLOBIN 27.8 pg (25-34); MEAN CORPUSCULAR HGB CONC 33.5 g/dl (32-36); MEAN PLATELET VOLUME 10.5 fL (7.4-10.4); MONO % 10.3 %; MONO ABS # 0.71 K/uL (0.11-0.59); NEUT % 67.3 %; NEUT ABS # 4.64 K/uL (1.4-6.5); PLATELET COUNT 149 K/uL (130-400); RED CELL DISTRIBUTION WIDTH CV 14.8 % (11.5-14.5); RED CELL DISTRIBUTION WIDTH SD 44.3 fL (36.4-46.3)
[2017-11-26 06:45] LABS: CALCIUM 8.1 mg/dl (8.5-10.1); CREATININE 1.45 mg/dl (0.60-1.40); POTASSIUM 3.8 mmol/L (3.5-5.1)
[2017-11-26] MEDS: INSULIN ASPART 100 UNITS/ML 3 ML PEN SC SCH ×4 (07:00→21:00)
--- NOTE | 2017-11-26 08:27 | ECHOCARDIOGRAM REPORT ---
*NOTICE TO RECEIVING CONSTITUTION PARTY AGENCY This information is strictly Confidential and protected under [place] law. [place] law prohibits you from making any further disclosure of this information unless further disclosure is expressly permitted by the written consent of the person to whom it pertains or is authorized by law. A general authorization for the release of medical or other information is not sufficient for this purpose. Hospital accepts no responsibility if the information is made available to any other person, INCLUDING THE PATIENT. Interpretation Summary * Name: MIGUEL ACE Study Date: 11/25/2017 09:01 AM BP: 142/69 mmHg * Patient Location: C.2E\S\E203\S\1 HR: 83 * : 1945 (M/d/yyyy) Gender: Male Height: 66 in * Age: 72 yrs Ethnicity: Weight: 141 lb * Ordering Physician: Selwyn Chicas * Referring Physician: Self, Referred * Performed By: Jennifer Benton RCS * * Reason For Study: EKG Changes * BSA: 1.7 m2 * -- Conclusions -- * No change compared to previous study of 07/13. * Normal LV chamber size and wall thickness. * Moderately reduced LV systolic function, EF 35-40%. * Moderate to severe hypokinesis of the mid to apical anterolateral, anterior, anteroseptal, inferoseptal and inferior valentine. * Grade II diastolic dysfunction. * Mild aortic regurgitation. * Trace mitral regurgitation. Procedure Details * A complete two-dimensional transthoracic echocardiogram was performed (2D, M-mode, Doppler and color flow Doppler). Left Ventricle * The left ventricle is normal in size. * There is normal left ventricular wall thickness. * Ejection Fraction = 35-40%. * Left ventricular systolic function is moderately reduced. * Moderate to severe hypokinesis of the mid to apical anterolateral, anterior, anteroseptal, inferoseptal and inferior valentine. Right Ventricle * The right ventricular cavity size is normal (basal dimension <4.2 cm in right ventricular apical 4-chamber view). * The right ventricular systolic function is normal as assessed by tricuspid annular plane systolic excursion (TAPSE) (normal >1.5 cm). Atria * The left atrium is mildly dilated. * Right atrial size is normal. * No ASD detected; PFO is not assessed. Mitral Valve * There is mild mitral annular calcification. * There is no mitral valve stenosis. * There is trace mitral regurgitation. Tricuspid Valve * The tricuspid valve is normal in structure and function. Aortic Valve * The aortic valve is trileaflet. * No hemodynamically significant valvular aortic stenosis. * Mild aortic regurgitation. Pulmonic Valve * The pulmonary valve is not well seen, but the Doppler examination is normal without significant regurgitation or stenosis. Great Vessels * The aortic root and proximal ascending aorta are normal sized. Pericardium/Pleural * There is no pericardial effusion. Left Ventricular Diastolic Function * Diastolic dysfunction, Grade II (pseudonormalization pattern). MMode 2D Measurements and Calculations IVSd 0.77 cm IVSs 0.78 cm LVIDd 3.6 cm LVIDs 2.8 cm LVPWd 0.76 cm LVPWs 0.86 cm IVS/LVPW 1.0 FS 21.2 % EDV(Teich) 53.2 ml ESV(Teich) 29.9 ml EF(Teich) 43.9 % EDV(cubed) 45.4 ml ESV(cubed) 22.2 ml EF(cubed) 51.0 % % IVS thick 0.44 % % LVPW thick 13.8 % LV mass(C)d 72.9 grams LV mass(C)dI 42.3 grams/m\S\2 LV mass(C)s 55.3 grams LV mass(C)sI 32.1 grams/m\S\2 SV(Teich) 23.4 ml SI(Teich) 13.6 ml/m\S\2 SV(cubed) 23.1 ml SI(cubed) 13.4 ml/m\S\2 Ao root diam 3.4 cm Ao root area 9.2 cm\S\2 ACS 1.5 cm LA dimension 4.0 cm asc Aorta Diam 3.0 cm LA/Ao 1.2 EDV(MOD-sp4) 88.0 ml ESV(MOD-sp4) 47.0 ml EF(MOD-sp4) 46.6 % EDV(MOD-sp2) 94.0 ml ESV(MOD-sp2) 57.0 ml EF(MOD-sp2) 39.4 % SV(MOD-sp4) 41.0 ml SI(MOD-sp4) 23.8 ml/m\S\2 SV(MOD-sp2) 37.0 ml SI(MOD-sp2) 21.5 ml/m\S\2 Doppler Measurements and Calculations MV E max maia 114.3 cm/sec MV A max maia 92.7 cm/sec MV E/A 1.2 MV P1/2t max maia 124.0 cm/sec MV P1/2t 78.7 msec MVA(P1/2t) 2.8 cm\S\2 MV dec slope 461.8 cm/sec\S\2 MV dec time 0.16 sec Ao V2 max 131.4 cm/sec Ao max PG 6.9 mmHg Ao max PG (full) 4.5 mmHg AI max maia 434.8 cm/sec AI max PG 75.6 mmHg AI dec slope 345.3 cm/sec\S\2 AI P1/2t 368.8 msec LV V1 max PG 2.4 mmHg LV V1 max 77.3 cm/sec PA V2 max 72.0 cm/sec PA max PG 2.1 mmHg TR max maia 267.6 cm/sec
[2017-11-26] MEDS: SODIUM CHLORIDE 0.9% 1000ML 1,000 ML IV SCH ×2 (08:44→20:11)
[2017-11-26] MEDS: LEVOTHYROXINE SODIUM INJ 25 MCG in SYRINGE 0 ML IV SCH (08:46)
[2017-11-26] MEDS: METOPROLOL SUCC 50MG EXT REL TAB PO SCH (08:46)
[2017-11-26] MEDS ORDERED: PROPOFOL IV EMULSION 10 MG/ML 20 ML VIAL ONE (09:48)
[2017-11-26] MEDS ORDERED: LIDOCAINE HCL 2% 2 ML VIAL (20MG/ML) ONE (09:48)
--- NOTE | 2017-11-26 10:19 | GI REPORT ---
Patient Name: Willian Ruby Procedure Date: 11/26/2017 9:39 AM Date of : 1945 Admit Type: Inpatient Age: 72 Gender: Male Attending MD: Pernell Guzman DO Procedure: Upper GI endoscopy Providers: Pernell Guzman DO Referring MD: Petr Leigh Indications: Melena Medicines: Monitored Anesthesia Care Complications: No immediate complications. Estimated blood loss: Minimal. Estimated Blood Loss: Estimated blood loss was minimal. Procedure: Pre-Anesthesia Assessment: - Prior to the procedure, a History and Physical was performed, and patient medications, allergies and sensitivities were reviewed. The patient's tolerance of previous anesthesia was reviewed. - The risks and benefits of the procedure and the sedation options and risks were discussed with the patient. All questions were answered and informed consent was obtained. - Patient identification and proposed procedure were verified prior to the procedure by the physician, the nurse and the financial aid officer. The procedure was verified in the procedure room. - Pre-procedure physical examination revealed no contraindications to sedation. - ASA Grade Assessment: IV - A patient with severe systemic disease that is a constant threat to life. - After reviewing the risks and benefits, the patient was deemed in satisfactory condition to undergo the procedure. - The anesthesia plan was to use monitored anesthesia care (MAC). - Immediately prior to administration of medications, the patient was re-assessed for adequacy to receive sedatives. - The heart rate, respiratory rate, oxygen saturations, blood pressure, adequacy of pulmonary ventilation, and response to care were monitored throughout the procedure. - The physical status of the patient was re-assessed after the procedure. After obtaining informed consent, the endoscope was passed under direct vision. Throughout the procedure, the patient's blood pressure, pulse, and oxygen saturations were monitored continuously. The scope was introduced through the mouth, and advanced to the third part of duodenum. The upper GI endoscopy was accomplished without difficulty. The patient tolerated the procedure well. Findings: The examined esophagus was normal. The cardia, gastric fundus and gastric body were normal. Diffuse moderate inflammation characterized by erythema, granularity and shallow ulcerations was found in the gastric antrum. Biopsies were taken with a cold forceps for histology. Estimated blood loss was minimal. One non-obstructing non-bleeding cratered posterior duodenal ulcer with a nonbleeding visible vessel (Cullen Class IIa) was found in the posterior duodenal bulb. The lesion was 10 mm in largest dimension. Area was successfully injected with 3 mL of a 1:10,000 solution of epinephrine for drug delivery. Coagulation for hemostasis using a 7 Fr Siver bipolar probe was successful. Estimated blood loss: none. The second portion of the duodenum and third portion of the duodenum were normal. Impression: - Normal esophagus. - Normal cardia, gastric fundus and gastric body. - Gastritis. Biopsied. - One non-obstructing non-bleeding duodenal ulcer with a nonbleeding visible vessel (Cullen Class IIa). NSAID induced etiology. Injected. Treated with bipolar cautery. - Normal second portion of the duodenum and third portion of the duodenum. Recommendation: - Discharge patient to home (ambulatory). - Full liquid diet today. - Give Protonix (pantoprazole): 8 mg/hr IV by continuous infusion for another 2 days. then Transition to Protonix 40 mg per day for 6 weeks, then 20 mg per day therafter. - Repeat EGD in 3 months - Hold use of nsaids (patient may have 81 mg aspirin) Pernell Guzman D.O. Pernell Guzman DO 11/26/2017 10:18:51 AM This report has been signed electronically. Note Initiated On: 11/26/2017 9:39 AM Number of Addenda: 0 I attest to the content of the Intraoperative Record and orders documented therein, exceptions below {[id number]}
--- NOTE | 2017-11-26 10:49 | Progress Note ---
Progress Note Date of Service November 26, 2017. Progress Note Patient with a posterior duodenal bulb ulcer. A visible vessel was noted. This was treated with epinephrine injection and thermal therapy. Recommendations Liquid diet today Continue Protonix drip for another 48 hours Upon discharge patient should be on Protonix 40 mg per day Avoid unnecessary NSAIDs and prednisone (may use a baby aspirin) Repeat upper endoscopy in 3 months Biopsies taken from the stomach to evaluate for H pylori infection
--- NOTE | 2017-11-26 11:56 | Progress Note ---
Internal Med Progress Note Date of Service: November 26, 2017. Provider Documentation: SUBJECTIVE: The patient was seen and examined in telemetry unit. She was admitted with Deepti melanotic stool, dizziness, and was noted to have EKG changes. She was evaluated by digital product manager, had a cardiac cath, and underwent EGD today, Remains stable today and does not have any significant complaints OBJECTIVE: Vital Signs-as noted below Exam: General-no distress at rest Eyes-normal ENT-normal Neck-supple Lungs-decreased breath sounds at bases but no wheezing or crackles Heart-regular Abdomen-benign, mildly tender in the epigastrium Extremities-no edema Neuro-alert awake and oriented 3 No focal neuro deficit Lab data as noted below. ASSESSMENT & PLAN: 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 This was treated with epinephrine injection and thermal therapy. Recommendations as per GI Liquid diet for today Continue Protonix drip for another 48 hours Upon discharge patient should be on Protonix 40 mg per day Avoid unnecessary NSAIDs and prednisone (may use a baby aspirin) Repeat upper endoscopy in 3 months Biopsies taken from the stomach to evaluate for H pylori infection Clinically stable Abnormal EKG: ST changes in anterior leads Patient denies chest pain/discomfort Troponin X2: negative Trend cardiac enzymes Check ECHO:: No change compared to previous study of 07/13. * Normal LV chamber size and wall thickness. * Moderately reduced LV systolic function, EF 35-40%. * Moderate to severe hypokinesis of the mid to apical anterolateral, anterior , anteroseptal, inferoseptal and inferior valentine. * Grade II diastolic dysfunction. * Mild aortic regurgitation. * Trace mitral regurgitation. Cardiology consulted-appreciate Input Cardiac Cath::1. Severe chronic multivessel coronary artery disease - 80-90% mid LAD in-stent restenosis - 40-50% ostial to mid circumflex. 100% occluded ostial OM1 stent -2. Widely patent vein grafts to OM1, mid LAD (60-70% stenosis at LAD anastomosis). -3. Normal intracardiac filling pressure Recommendations: -Chronic stable disease, no acute obstructive lesions. -OK to proceed with endoscopy as needed. -Continued ASCVD risk factor modification per Dr. Couch. Hypotension: Sinus Tachycardia: Secondary to above Hold HTN meds IV fluids with caution as H/O ischemic cardiomyopathy BP is controlled Elevated Blood Sugar Levels: Likely secondary to recent prednisone use check A1C:7.0 ISS, monitor BGs CKD III Cr stable Monitor renal function CAD s/p CABG and stents Ischemic Cardiomyopathy Held Aspirin, plavix Continue metoprolol Resume statin as able Cardiac cath as above HTN Initially presented with Hypotension Hold Lisinopril continue coreg monitor Hypothyroidism: TSH: normal Continue Levothyroxine H/O SVT S/P Ablation continue metoprolol H/O CVA: PAD S/P R carotid endarterectomy ASA, Plavix held Resume statins as able DVT Px: SCDs Code Status: Full Code Disposition: Monitor in Tele DISPOSITION Home in 2 days Vital Signs: Date Time Temp Pulse Resp B/P (MAP) Pulse Ox O2 Delivery O2 Flow Rate FiO2 11/26/17 10:49 67 18 148/83 (104) 97 Room Air 11/26/17 10:38 66 18 140/73 (95) 99 Room Air 11/26/17 10:22 36.7 66 18 130/81 (97) 99 Room Air 11/26/17 10:07 77 16 104/65 (78) 94 Room Air 11/26/17 09:36 36.7 75 20 146/81 (102) 94 Room Air 11/26/17 06:30 37.1 75 18 130/71 (90) 96 Room Air 11/26/17 04:00 Room Air 11/26/17 03:53 36.7 81 18 121/75 (90) 97 Room Air 11/26/17 00:00 Room Air 11/25/17 23:29 37.0 76 22 136/84 (101) 96 Room Air 11/25/17 20:05 36.3 81 20 147/92 (110) 98 Room Air 11/25/17 20:00 Room Air 11/25/17 16:00 Room Air 11/25/17 15:58 36.5 75 18 146/77 (100) 100 Room Air 11/25/17 14:53 81 18 146/76 (99) 99 Room Air 11/25/17 13:53 74 18 134/72 (92) 99 Room Air 11/25/17 12:56 73 17 168/78 (108) 100 Room Air 11/25/17 12:23 36.5 72 15 147/87 (107) 99 Room Air 11/25/17 12:08 36.5 74 17 136/81 99 11/25/17 12:00 95 Room Air 11/25/17 11:53 74 18 110/80 (90) 97 Room Air Lab Results: Results Past 24 Hours Test 11/25/17 12:14 11/25/17 14:10 11/25/17 16:26 11/25/17 18:32 Range/Units Bedside Glucose 154 146 70-99 mg/dl Hemoglobin 12.0 11.8 14.0-18.0 g/dL Hematocrit 35.6 35.2 42-52 % Troponin I 0.047 0-0.045 ng/ml Test 11/25/17 21:11 11/26/17 05:25 11/26/17 07:23 Range/Units Bedside Glucose 164 126 70-99 mg/dl White Blood Count 6.90 4.8-10.8 K/uL Red Blood Count 4.03 4.7-6.1 M/uL Hemoglobin 11.2 14.0-18.0 g/dL Hematocrit 33.4 42-52 % Mean Corpuscular Volume 82.9 80-100 fL Mean Corpuscular Hemoglobin 27.8 25-34 pg Mean Corpuscular Hemoglobin Concent 33.5 32-36 g/dl Platelet Count 149 130-400 K/uL Mean Platelet Volume 10.5 7.4-10.4 fL Neutrophils (%) (Auto) 67.3 % Lymphocytes (%) (Auto) 18.1 % Monocytes (%) (Auto) 10.3 % Eosinophils (%) (Auto) 3.5 % Basophils (%) (Auto) 0.1 % Neutrophils # (Auto) 4.64 1.4-6.5 K/uL Lymphocytes # (Auto) 1.25 1.2-3.4 K/uL Monocytes # (Auto) 0.71 0.11-0.59 K/uL Eosinophils # (Auto) 0.24 0-0.5 K/uL Basophils # (Auto) 0.01 0-0.2 K/uL RDW Standard Deviation 44.3 36.4-46.3 fL RDW Coefficient of Variation 14.8 11.5-14.5 % Immature Granulocyte % (Auto) 0.7 % Immature Granulocyte # (Auto) 0.05 0.00-0.02 K/uL Sodium Level 142 136-145 mmol/L Potassium Level 3.8 3.5-5.1 mmol/L Chloride Level 111 98-107 mmol/L Carbon Dioxide Level 27 21-32 mmol/L Anion Gap 4.0 3-11 mmol/L Blood Urea Nitrogen 16 7-18 mg/dl Creatinine 1.45 0.60-1.40 mg/dl Est Creatinine Clear Calc Drug Dose 40.0 ml/min Estimated GFR () 55.8 Estimated GFR (Non- 48.1 BUN/Creatinine Ratio 10.9 10-20 Random Glucose 114 70-99 mg/dl Calcium Level 8.1 8.5-10.1 mg/dl Magnesium Level 2.0 1.8-2.4 mg/dl
--- NOTE | 2017-11-26 12:03 | Cardiology Follow-Up ---
Subjective Subjective Date of Service: November 26, 2017. Pt evaluation today including: conversation w/ patient, conversation w/ family , physical exam, chart review, lab review, review of studies, review of inpatient medication list Additional Details: Pt seen and examined, with son in law at bedside, also spoke with daughter by phone. No complaints overnight. Denies cp, sob, palpitations, lightheadedness or dizziness. Tele reviewed: sinus rhythm without arrhythmia or significant ectopy. Problem List Medical Problems: (1) Anemia Status: Acute (2) GI bleed Status: Acute (3) Hypotension Status: Acute (4) Tachycardia Status: Acute Review of Systems Respiratory: No see HPI, No cough, No sputum, No wheezing, No shortness of breath, No dyspnea on exertion, No dyspnea at rest, No hemoptysis, No problem reported Cardiac: + palpitations, No see HPI, No chest pain, No orthopnea, No PND, No edema, No claudication, No problem reported Objective Vital Signs Last Vital Signs Documentation Date Time Temp Pulse Resp B/P (MAP) Pulse Ox O2 Delivery O2 Flow Rate FiO2 11/26/17 10:49 67 18 148/83 (104) 97 Room Air 11/26/17 10:22 36.7 Physical Exam: General Appearance: WD/WN, no apparent distress Eyes: bilateral eyes normal inspection, bilateral eyes PERRL, bilateral eyes EOMI ENT: normal ENT inspection, hearing grossly normal, pharynx normal Neck: supple, no adenopathy, thyroid normal, no JVD Respiratory/Chest: chest non-tender, lungs clear, normal breath sounds, no respiratory distress, no accessory muscle use Cardiovascular: regular rate, rhythm, no edema, no JVD, no murmur, + gallop/S4 Abdomen: normal bowel sounds, soft, no organomegaly, no pulsatile mass, + tenderness Extremities: normal range of motion, non-tender, normal inspection, no pedal edema, no calf tenderness Neurologic/Psychiatric: progress man II-XII nml as tested, no motor/sensory deficits, alert, normal mood/affect, oriented x 3 Skin: normal color, warm/dry, no rash Lymphatic: no adenopathy Assessment and Plan 1. ST segment elevation likely Type 2 DE due to demand ischemia secondary to anemia cardiac cath shows stable disease with patent grafts would like restart aspirin once ok with GI 2. anemia active GI bleed duodenal ulcer present and intervened upon by GI 3. CAD stable no need to restart plavix will cont toprol, lisinopril, atorvastatin and aspirin
--- NOTE | 2017-11-26 12:23 | Anesthesiology Progress Note ---
Anesthesia Post Op Note Date & Time November 26, 2017 at 12:22 Vital Signs Pain Intensity: 0.0 Vital Signs Past 12 Hours Date Time Temp Pulse Resp B/P (MAP) Pulse Ox O2 Delivery O2 Flow Rate FiO2 11/26/17 12:00 96 Room Air 11/26/17 11:46 36.3 66 20 127/80 (96) 97 Room Air 11/26/17 10:49 67 18 148/83 (104) 97 Room Air 11/26/17 10:38 66 18 140/73 (95) 99 Room Air 11/26/17 10:22 36.7 66 18 130/81 (97) 99 Room Air 11/26/17 10:07 77 16 104/65 (78) 94 Room Air 11/26/17 09:36 36.7 75 20 146/81 (102) 94 Room Air 11/26/17 08:00 95 Room Air 11/26/17 06:30 37.1 75 18 130/71 (90) 96 Room Air 11/26/17 04:00 Room Air 11/26/17 03:53 36.7 81 18 121/75 (90) 97 Room Air Notes Mental Status: alert / awake / arousable, participated in evaluation Pt Amnestic to Procedure: Yes Nausea / Vomiting: adequately controlled Pain: adequately controlled Airway Patency, RR, SpO2: stable & adequate BP & HR: stable & adequate Hydration State: stable & adequate Anesthetic Complications: no major complications apparent
[2017-11-27] VITALS (8 sets, daily range): BP systolic 118–137; BP diastolic 61–76; PULSE 63–70; TEMP 36.2–37; O2SAT 95–98
[2017-11-27] MEDS: PANTOprazole INJ 40 MG in DEXTROSE 5% 100ML IV SCH ×5 (02:25→23:10)
--- NOTE | 2017-11-27 08:39 | Gastroenterology Progress Note ---
Progress Note Date of Service: November 27, 2017 Subjective Pt evaluation today including: conversation w/ patient, conversation w/ family , physical exam, chart review, lab review, review of inpatient medication list Pt did well overnight, VS stable, no more black or bloody stools. H/H stable . Denies any abd pain, n/v, tolerated CL diet well. Review of Systems Constitutional: No fever, No chills Respiratory: No cough, No shortness of breath Cardiac: No chest pain Abdomen: No pain, No nausea, No vomiting, No GI bleeding Medications Current Inpatient Medications Medications (Trade) Dose Ordered Sig/[place] Route Start Time Stop Time Status Last Admin Dose Admin Sodium Chloride 1,000 ml @ 75 mls/hr [id number] IV 11/24/17 16:30 12/24/17 16:29 11/26/17 20:11 75 MLS/HR Ondansetron HCl (Zofran Inj) 4 mg Q6H PRN IV 11/24/17 14:30 12/24/17 14:29 Pantoprazole Sodium 40 mg/ Dextrose 100 ml @ 20 mls/hr Q5H IV 11/24/17 15:00 12/24/17 14:59 11/27/17 02:25 20 MLS/HR Metoprolol Succinate (Toprol Xl Tab) 50 mg DAILY PO 11/25/17 09:00 12/25/17 08:59 11/26/17 08:46 50 MG Levothyroxine Sodium 25 mcg/ Syringe 1.25 ml @ 2 mls/min DAILY@09 IV 11/25/17 09:00 12/25/17 08:59 11/26/17 08:46 2 MLS/MIN Acetaminophen 650 mg/Empty Bag 65 ml @ 260 mls/hr Q6H PRN IV 11/24/17 14:45 12/24/17 14:44 Insulin Aspart (novoLOG ASPART) SLIDING SCALE If C... ACHS SC 11/24/17 16:00 12/24/17 15:59 Glucose (Glucose 40% Gel) 15-30 GRAMS 15 GRAMS... UD PRN PO 11/24/17 15:00 12/24/17 14:59 Glucose (Glucose Chew Tab) 4-8 Tablets 4 Tabl... UD PRN PO 11/24/17 15:00 12/24/17 14:59 Dextrose (Dextrose 50% 50ML Syringe) 25-50ML OF 50% DW IV FOR... UD PRN IV 11/24/17 15:00 12/24/17 14:59 Glucagon (Glucagon Inj) 1 mg UD PRN SQ 11/24/17 15:00 12/24/17 14:59 Objective Vital Signs Date Time Temp Pulse Resp B/P (MAP) Pulse Ox O2 Delivery O2 Flow Rate FiO2 11/27/17 07:59 36.6 70 19 118/65 (82) 96 Room Air 11/27/17 04:00 Room Air 11/27/17 03:33 36.7 63 16 124/61 (82) 95 Room Air 11/26/17 23:59 Room Air 11/26/17 23:10 36.8 69 18 118/65 (82) 96 Room Air 11/26/17 20:00 Room Air 11/26/17 19:18 36.8 66 18 142/81 (101) 96 Room Air 11/26/17 16:00 Room Air 11/26/17 15:11 36.8 66 24 155/76 (102) 97 Room Air 11/26/17 12:00 96 Room Air 11/26/17 11:46 36.3 66 20 127/80 (96) 97 Room Air 11/26/17 10:49 67 18 148/83 (104) 97 Room Air 11/26/17 10:38 66 18 140/73 (95) 99 Room Air 11/26/17 10:22 36.7 66 18 130/81 (97) 99 Room Air 11/26/17 10:07 77 16 104/65 (78) 94 Room Air 11/26/17 09:36 36.7 75 20 146/81 (102) 94 Room Air Physical Exam General Appearance: WD/WN, no apparent distress Eyes: normal inspection, PERRL, EOMI Neck: supple, no JVD, trachea midline Respiratory/Chest: normal breath sounds, no respiratory distress, no accessory muscle use Cardiovascular: regular rate, rhythm, no gallop, no murmur Abdomen: normal bowel sounds, non tender, soft Extremities: normal inspection, no pedal edema, no calf tenderness Neurologic/Psych: alert, normal mood/affect, oriented x 3 Skin: normal color, no jaundice, no rash Laboratory Results Last 24 Hours Test 11/26/17 11:31 11/26/17 16:22 11/26/17 20:54 11/27/17 07:05 Bedside Glucose 137 mg/dl 117 mg/dl 134 mg/dl 205 mg/dl Assessment and Plan Pt is a 72 y/o male, seen for melena, anemia. EGD on 11/26 showed non bleeding duodenal ulcer w visible vessel treated w epinephrine and bipolar cautery. He hasn't had any more s/s of GI bleeding overnight, VS stable, H/H stable, no melena. Tolerating CL diet w/o abd pain, n/v. - Continue PPI gtt till tomorrow afternoon, then transition to Protonix 40mg BID x 6 weeks, then 20mg daily thereafter - Avoid NSAIDs, ok to have ASA 81mg daily - Repeat EGD in 3 month's time to eval healing - Advanced to heart healthy, diabetic, soft diet today. I saw and evaluated the patient. He appears to be very well today and has no complaints. He notes that his stool is now brown. Recommendations Continue Protonix drip through tonight then discontinue Transition to oral Protonix 40 mg 1 time daily Daily iron supplement for 6-8 weeks Repeat upper endoscopy to be scheduled in 3 months Please call with any questions or concerns, GI to sign off for the time being
[2017-11-27] MEDS: SODIUM CHLORIDE 0.9% 1000ML 1,000 ML IV SCH ×2 (09:10→21:53)
[2017-11-27] MEDS: METOPROLOL SUCC 50MG EXT REL TAB PO SCH (09:10)
[2017-11-27] MEDS: INSULIN ASPART 100 UNITS/ML 3 ML PEN SC SCH ×5 (09:13→21:04)
[2017-11-27] MEDS: LEVOTHYROXINE SODIUM INJ 25 MCG in SYRINGE 0 ML IV SCH (09:14)
[2017-11-27] MEDS ORDERED: NITROGLYCERIN 0.4 MG SL PER TAB CHARGE UT PRN (09:15)
--- NOTE | 2017-11-27 09:33 | Progress Note ---
Internal Med Progress Note Date of Service: November 27, 2017. Provider Documentation: SUBJECTIVE: The patient was seen and examined in telemetry unit. She was admitted with Deepti melanotic stool, dizziness, and was noted to have EKG changes. She was evaluated by brake holder, had a cardiac cath, and underwent EGD on 11/26 Remains stable today and does not have any significant complaints Denies any symptoms Continuing on Protonix drip for today Likely home tomorrow OBJECTIVE: Vital Signs-as noted below Exam: General-no distress at rest Eyes-normal ENT-normal Neck-supple Lungs-decreased breath sounds at bases but no wheezing or crackles Heart-regular Abdomen-benign, mildly tender in the epigastrium Extremities-no edema Neuro-alert awake and oriented 3 No focal neuro deficit Lab data as noted below. ASSESSMENT & PLAN: 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 This was treated with epinephrine injection and thermal therapy. Recommendations as per GI Liquid diet for today-advanced as tolerated Continue Protonix drip for another 24 hours Upon discharge patient should be on Protonix 40 mg BIB for 6 weeks and then daily Avoid unnecessary NSAIDs and prednisone (may use a baby aspirin) Repeat upper endoscopy in 3 months Biopsies taken from the stomach to evaluate for H pylori infection Clinically stable Will check CBC tomorrow and if stable will discharge Abnormal EKG: ST changes in anterior leads Patient denies chest pain/discomfort Troponin X2: negative Trend cardiac enzymes Check ECHO:: No change compared to previous study of 07/13. * Normal LV chamber size and wall thickness. * Moderately reduced LV systolic function, EF 35-40%. * Moderate to severe hypokinesis of the mid to apical anterolateral, anterior , anteroseptal, inferoseptal and inferior valentine. * Grade II diastolic dysfunction. * Mild aortic regurgitation. * Trace mitral regurgitation. Cardiology consulted-appreciate Input Cardiac Cath::1. Severe chronic multivessel coronary artery disease - 80-90% mid LAD in-stent restenosis - 40-50% ostial to mid circumflex. 100% occluded ostial OM1 stent -2. Widely patent vein grafts to OM1, mid LAD (60-70% stenosis at LAD anastomosis). -3. Normal intracardiac filling pressure Recommendations: -Chronic stable disease, no acute obstructive lesions. -OK to proceed with endoscopy as needed. -Continued ASCVD risk factor modification per Dr. Couch. -remains free from any symptoms -Cardiac medications restarted Hypotension: Sinus Tachycardia: Secondary to above Hold HTN meds IV fluids with caution as H/O ischemic cardiomyopathy BP is controlled now Elevated Blood Sugar Levels: Likely secondary to recent prednisone use check A1C:7.0 ISS, monitor BGs CKD III Cr stable Monitor renal function CAD s/p CABG and stents Ischemic Cardiomyopathy Held Aspirin, plavix Continue metoprolol Resume statin as able Cardiac cath as above HTN Initially presented with Hypotension Hold Lisinopril continue coreg monitor Hypothyroidism: TSH: normal Continue Levothyroxine H/O SVT S/P Ablation continue metoprolol H/O CVA: PAD S/P R carotid endarterectomy ASA, Plavix held Resume statins as able DVT Px: SCDs Code Status: Full Code Disposition: Monitor in Tele DISPOSITION Likely discharge tomorrow Vital Signs: Date Time Temp Pulse Resp B/P (MAP) Pulse Ox O2 Delivery O2 Flow Rate FiO2 11/27/17 08:15 37.0 70 16 118/65 (82) 96 Room Air 11/27/17 07:59 36.6 70 19 118/65 (82) 96 Room Air 11/27/17 04:00 Room Air 11/27/17 03:33 36.7 63 16 124/61 (82) 95 Room Air 11/26/17 23:59 Room Air 11/26/17 23:10 36.8 69 18 118/65 (82) 96 Room Air 11/26/17 20:00 Room Air 11/26/17 19:18 36.8 66 18 142/81 (101) 96 Room Air 11/26/17 16:00 Room Air 11/26/17 15:11 36.8 66 24 155/76 (102) 97 Room Air 11/26/17 12:00 96 Room Air 11/26/17 11:46 36.3 66 20 127/80 (96) 97 Room Air 11/26/17 10:49 67 18 148/83 (104) 97 Room Air 11/26/17 10:38 66 18 140/73 (95) 99 Room Air 11/26/17 10:22 36.7 66 18 130/81 (97) 99 Room Air 11/26/17 10:07 77 16 104/65 (78) 94 Room Air 11/26/17 09:36 36.7 75 20 146/81 (102) 94 Room Air Lab Results: Results Past 24 Hours Test 11/26/17 11:31 11/26/17 16:22 11/26/17 20:54 11/27/17 07:05 Range/Units Bedside Glucose 137 117 134 205 70-99 mg/dl
[2017-11-27] MEDS ORDERED: LEVOTHYROXINE 50 MCG TAB PO SCH (21:00)
[2017-11-28] VITALS (7 sets, daily range): BP systolic 133–166; BP diastolic 73–85; PULSE 65–75; TEMP 36.3–36.9; O2SAT 97–98
[2017-11-28 07:35] LABS: HEMATOCRIT 34.5 % (42-52); HEMOGLOBIN 11.6 g/dL (14.0-18.0); MEAN CELL VOLUME 83.1 fL (80-100); MEAN CORPUSCULAR HGB CONC 33.6 g/dl (32-36); MEAN PLATELET VOLUME 10.1 fL (7.4-10.4); PLATELET COUNT 145 K/uL (130-400); RED CELL DISTRIBUTION WIDTH SD 44.7 fL (36.4-46.3); WHITE BLOOD COUNT 9.25 K/uL (4.8-10.8)
[2017-11-28] MEDS ORDERED: PANTOprazole SOD 40 MG TAB PO SCH (08:00)
[2017-11-28] MEDS ORDERED: LISINOPRIL 10 MG TAB PO SCH (08:00)
[2017-11-28] MEDS ORDERED: FINASTERIDE 5 MG TAB PO SCH (08:00)
[2017-11-28] MEDS: METOPROLOL SUCC 50MG EXT REL TAB PO SCH (08:00)
[2017-11-28] MEDS ORDERED: ATORVASTATIN 40 MG TAB PO SCH (08:00)
[2017-11-28 08:12] LABS: CALCIUM 7.9 mg/dl (8.5-10.1); CREATININE 1.54 mg/dl (0.60-1.40); POTASSIUM 3.6 mmol/L (3.5-5.1)
[2017-11-28] MEDS: INSULIN ASPART 100 UNITS/ML 3 ML PEN SC SCH ×2 (08:42→12:52)
[2017-11-28] MEDS ORDERED: NURSING VERBAL MED ORDER ONE (09:15)
--- NOTE | 2017-11-28 10:55 | Progress Note ---
Internal Med Progress Note Date of Service: November 28, 2017. Provider Documentation: SUBJECTIVE: The patient was seen and examined in telemetry unit. She was admitted with Deepti melanotic stool, dizziness, and was noted to have EKG changes. She was evaluated by geomagnetician, had a cardiac cath, and underwent EGD on 11/26 Remains stable today and does not have any significant complaints Denies any symptoms Continuing on Protonix drip for today Likely home tomorrow 11/28 Much better No more bleeding Hb remains stable Ambulating without any symptoms OBJECTIVE: Vital Signs-as noted below Exam: General-no distress at rest Eyes-normal ENT-normal Neck-supple Lungs-clear to auscultate bilaterally Heart-regular Abdomen-benign, mildly tender in the epigastrium Extremities-no edema Neuro-alert awake and oriented 3 No focal neuro deficit Lab data as noted below. ASSESSMENT & PLAN: 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 This was treated with epinephrine injection and thermal therapy. Recommendations as per GI Liquid diet for today-advanced as tolerated Continue Protonix drip for another 24 hours Upon discharge patient should be on Protonix 40 mg BIB for 6 weeks and then daily Avoid unnecessary NSAIDs and prednisone (may use a baby aspirin) Repeat upper endoscopy in 3 months Biopsies taken from the stomach to evaluate for H pylori infection Clinically stable Will check CBC tomorrow and if stable will discharge Hb remains stable PPI changed to oral Will discharge home today Abnormal EKG: ST changes in anterior leads Patient denies chest pain/discomfort Troponin X2: negative Trend cardiac enzymes Check ECHO:: No change compared to previous study of 07/13. * Normal LV chamber size and wall thickness. * Moderately reduced LV systolic function, EF 35-40%. * Moderate to severe hypokinesis of the mid to apical anterolateral, anterior , anteroseptal, inferoseptal and inferior valentine. * Grade II diastolic dysfunction. * Mild aortic regurgitation. * Trace mitral regurgitation. Cardiology consulted-appreciate Input Cardiac Cath::1. Severe chronic multivessel coronary artery disease - 80-90% mid LAD in-stent restenosis - 40-50% ostial to mid circumflex. 100% occluded ostial OM1 stent -2. Widely patent vein grafts to OM1, mid LAD (60-70% stenosis at LAD anastomosis). -3. Normal intracardiac filling pressure Recommendations: -Chronic stable disease, no acute obstructive lesions. -OK to proceed with endoscopy as needed. -Continued ASCVD risk factor modification per Dr. Couch. -remains free from any symptoms -Cardiac medications restarted -no issues now Hypotension: Sinus Tachycardia: Secondary to above Hold HTN meds IV fluids with caution as H/O ischemic cardiomyopathy BP is controlled now Elevated Blood Sugar Levels: Likely secondary to recent prednisone use check A1C:7.0 ISS, monitor BGs CKD III Cr stable Monitor renal function CAD s/p CABG and stents Ischemic Cardiomyopathy Held Aspirin, plavix Continue metoprolol Resume statin as able Cardiac cath as above -medical management contemplated HTN Initially presented with Hypotension Hold Lisinopril continue coreg monitor Hypothyroidism: TSH: normal Continue Levothyroxine H/O SVT S/P Ablation continue metoprolol H/O CVA: PAD S/P R carotid endarterectomy ASA, Plavix held Resume statins as able DVT Px: SCDs Code Status: Full Code Disposition: Monitor in Tele DISPOSITION Discharge this afternoon Vital Signs: Date Time Temp Pulse Resp B/P (MAP) Pulse Ox O2 Delivery O2 Flow Rate FiO2 11/28/17 10:36 36.9 72 20 137/75 (95) 97 11/28/17 10:20 133/75 (94) 11/28/17 08:00 Room Air 11/28/17 07:05 36.6 65 18 152/77 (102) 97 Room Air 11/28/17 00:40 Room Air 11/27/17 22:51 36.7 67 18 137/76 (96) 97 Room Air 11/27/17 17:50 36.7 70 18 135/72 (93) 98 Room Air 11/27/17 16:00 97 Room Air 11/27/17 15:00 36.2 70 20 122/61 (81) 98 Room Air 11/27/17 11:30 Room Air 11/27/17 11:25 36.2 64 20 124/69 (87) 97 Room Air Lab Results: Results Past 24 Hours Test 11/27/17 11:24 5/2/18 16:37 11/27/17 20:12 11/28/17 07:21 Range/Units Bedside Glucose 111 161 138 70-99 mg/dl White Blood Count 9.25 4.8-10.8 K/uL Red Blood Count 4.15 4.7-6.1 M/uL Hemoglobin 11.6 14.0-18.0 g/dL Hematocrit 34.5 42-52 % Mean Corpuscular Volume 83.1 80-100 fL Mean Corpuscular Hemoglobin 28.0 25-34 pg Mean Corpuscular Hemoglobin Concent 33.6 32-36 g/dl RDW Standard Deviation 44.7 36.4-46.3 fL RDW Coefficient of Variation 15.0 11.5-14.5 % Platelet Count 145 130-400 K/uL Mean Platelet Volume 10.1 7.4-10.4 fL Sodium Level 141 136-145 mmol/L Potassium Level 3.6 3.5-5.1 mmol/L Chloride Level 110 98-107 mmol/L Carbon Dioxide Level 25 21-32 mmol/L Anion Gap 6.0 3-11 mmol/L Blood Urea Nitrogen 19 7-18 mg/dl Creatinine 1.54 0.60-1.40 mg/dl Est Creatinine Clear Calc Drug Dose 38.8 ml/min Estimated GFR () 51.8 Estimated GFR (Non- 44.7 BUN/Creatinine Ratio 12.6 10-20 Random Glucose 116 70-99 mg/dl Calcium Level 7.9 8.5-10.1 mg/dl Magnesium Level 1.9 1.8-2.4 mg/dl Test 11/28/17 07:41 Range/Units Bedside Glucose 106 70-99 mg/dl
[2017-11-28] MEDS ORDERED: PRT40 PO (14:03)
--- NOTE | 2017-11-28 14:08 | Discharge Instructions ---
Discharge Instructions Date of Service November 28, 2017. 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 Instructions / Follow-Up Instructions / Follow-Up Please make an appointment with your PCP in 1week-May need to start antidiabetic medications in future..Will need to have repeat EGD in 3 months Current Hospital Diet Patient's current hospital diet: Regular Diet, AHA Diet (Heart Healthy), Diabetes Type 2 Diet Discharge Diet Recommended Diet: Diabetes Type 2 Diet Procedures Procedures Performed: EGD w/Biopsies, Epinephrine injection and BiCap hemostasis Pending Studies Studies pending at discharge: no Laboratory Results Hemoglobin A1c Test 11/25/17 06:34 Range/Units Estimated Average Glucose 154 mg/dl Hemoglobin A1c 7.0 H 4.5-5.6 % Medical Emergencies . Who to Call and When: Medical Emergencies: If at any time you feel your situation is an emergency, please call 911 immediately. . Non-Emergent Contact Non-Emergency issues call your: Primary Care Provider . Past History Medical & Surgical History: (1) SVT (supraventricular tachycardia) (2) Tachycardia (3) GI bleed (4) Chest wall pain (5) Elevated troponin (6) Cardiac stent placement (7) Kidney stent placement (8) Urinary retention (9) Anemia (10) Renal insufficiency . "Provider Documentation" section prepared by Petr Leigh. .
[2017-11-28] MEDS ORDERED: FERR1TAB23 PO (14:09)
--- NOTE | 2017-11-28 16:28 | Discharge Summary ---
Discharge Summary Date of Service November 28, 2017. 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,CAD ,Diabetes Secondary Diagnoses/Problems: Please see H&P and Hospital Progress note Procedures: EGD and Cardiac Cath Consultations: Cardiology and GI Medication Reconciliation New Medications: Ferrous Sulfate (Iron) 325 Mg Tab 325 MG PO BID, #60 TAB Pantoprazole (Pantoprazole Sodium) 40 Mg Tab 40 MG PO BID for 30 Days, #60 TAB Twice daily for 6 weeks and then 1 daily to continue Continued Medications: Aspirin (Aspirin Ec) 81 Mg Tab 81 MG PO DAILY Atorvastatin (Lipitor) 40 Mg Tab 40 MG PO DAILY, TAB Finasteride (Finasteride) 5 Mg Tab 5 MG PO DAILY Levothyroxine Sodium (Synthroid) 25 Mcg Tab 50 MCG PO QPM, TAB Lisinopril (Lisinopril) 10 Mg Tab 10 MG PO DAILY Metoprolol Succ (Toprol Xl) (Toprol-Xl) 50 Mg Tabcr 50 MG PO DAILY, #30 TAB Nitroglycerin (Nitrostat) 0.4 Mg Sub 0.4 MG UT PRN, BTL Discontinued Medications: Clopidogrel Bisulfate (Plavix) 75 Mg Tab 75 MG PO DAILY, TAB Prednisone Tab (Prednisone) 10 Mg Tab 10 MG PO, TAB STARTED 11/14/17: TAPERED DOSE 50MG X2 DAYS 40MG X 2 DAYS 30MG X 2 DAYS 20MG X 2 DAYS 10MG X 2 DAYS Admission Information HPI (per Admitting provider): Patient is a 72-year-old male with past medical history CKD III, AAA, CAD s/p CABG and stents, Ischemic Cardiomyopathy, HTN , Hypothyroidism, SVT S/P Ablation , CVA X 2, S/P R carotid endarterectomy and other problems presents with history of black tarry stools, dizziness and diarrhea since 3 days. He reports having loose watery diarrhea 2-3 bowel movements per day, noted to have black colored stools. Reports associated left upper quadrant abdominal discomfort, 4/ 10, nonradiating, no aggravating factors, which improves temporarily with BMs. Denies any nausea, vomiting, fever, chills, NSAIDs use, h/o GI bleed. Last colonoscopy was in 2011 which showed internal hemorrhoids. He is currently on aspirin, Plavix for CAD. He recently completed a prednisone taper course for possible acute gout. He states having severe dizziness since 3 days causing difficulty with ambulation. Denies any history of chest pain, SOB, pedal edema, diaphoresis, cough, hemoptysis, hematuria, fever, chills, fall, head trauma, headache, change in vision, dysuria.He was found to be hypertensive while in the ED which improved with IV fluids. Past Medical/Surgical History Medical Problems: (1) Anemia (2) Anemia (3) Cardiac stent placement (4) CHEST PAIN (5) Chest wall pain (6) Elevated troponin (7) Elevated troponin (8) Hypotension (9) Kidney stent placement (10) Kidney stone (11) Left-sided epistaxis (12) Malfunction of Hunt catheter (13) Malfunction of Hunt catheter (14) Myocardial infarction (15) Renal insufficiency (16) SVT (supraventricular tachycardia) (17) SVT (supraventricular tachycardia) (18) SVT (supraventricular tachycardia) (19) Urinary retention (20) UTI (urinary tract infection) (21) UTI (urinary tract infection) Family History FH: heart disease Kidney disease or stones Reviewed, not relevant. Social History Smoking Status: Former Smoker Smokeless Tobacco Use: No Drug Use: none Marital Status: Occupational Status: retired Immunizations History of Influenza Vaccine: Yes History of Tetanus Vaccine?: unk History of Pneumococcal: No History of Hepatitis B Vaccine: No Allergies Coded Allergies: No Known Allergies (Unverified , 11/24/17) Home Medications Scheduled Aspirin (Aspirin Ec), 81 MG PO DAILY Atorvastatin (Lipitor), 40 MG PO DAILY Clopidogrel Bisulfate (Plavix), 75 MG PO DAILY Finasteride (Finasteride), 5 MG PO DAILY Levothyroxine Sodium (Synthroid), 50 MCG PO QPM Lisinopril (Lisinopril), 10 MG PO DAILY Metoprolol Succ (Toprol Xl) (Toprol-Xl), 50 MG PO DAILY Nitroglycerin (Nitrostat), 0.4 MG UT PRN Miscellaneous Medications Prednisone Tab (Prednisone), 10 MG PO Review of Systems See HPI for pertinent positives & negatives. A total of 10 systems reviewed and were otherwise negative. Physical Exam H&P v2 Physical Exam Vital Signs Date Time Temp Pulse Resp B/P (MAP) Pulse Ox O2 Delivery O2 Flow Rate FiO2 11/24/17 13:16 108 20 85/71 100 Room Air 11/24/17 13:01 98/60 11/24/17 12:51 117 20 11/24/17 12:38 136/83 11/24/17 11:51 106 100 11/24/17 11:46 102 116/69 98 Room Air 11/24/17 11:45 132/72 11/24/17 11:43 102 20 102/72 98 Room Air 11/24/17 11:43 99 11/24/17 11:32 102/72 11/24/17 11:27 100 Room Air 11/24/17 11:17 36.3 111 18 72/48 100 Room Air General Appearance: WD/WN, no apparent distress Head: normocephalic, atraumatic Eyes: normal inspection, PERRL, EOMI ENT: normal ENT inspection, hearing grossly normal Neck: supple, trachea midline Respiratory/Chest: chest non-tender, lungs clear, normal breath sounds, no respiratory distress, no accessory muscle use Cardiovascular: regular rate, rhythm, no edema, no murmur, + tachycardia Abdomen/GI: normal bowel sounds, soft, + tenderness (mild LUQ) Back: normal inspection Extremities/Musculoskelatal: normal inspection, no pedal edema 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/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, no motor/sensory deficits, alert, normal mood/affect, oriented x 3 Skin: normal color, warm/dry, + pertinent finding (Vertical CABG scar on chest , Surgical Scar on Right side of neck) Diagnostics H&P v2 Diagnostics Laboratory Results Results Past 24 Hours Test 11/24/17 12:01 Range/Units White Blood Count 11.24 4.8-10.8 K/uL Red Blood Count 3.58 4.7-6.1 M/uL Hemoglobin 9.1 14.0-18.0 g/dL Hematocrit 28.0 42-52 % Mean Corpuscular Volume 78.2 80-100 fL Mean Corpuscular Hemoglobin 25.4 25-34 pg Mean Corpuscular Hemoglobin Concent 32.5 32-36 g/dl Platelet Count 209 130-400 K/uL Mean Platelet Volume 9.6 7.4-10.4 fL Neutrophils (%) (Auto) 73.9 % Lymphocytes (%) (Auto) 15.5 % Monocytes (%) (Auto) 7.9 % Eosinophils (%) (Auto) 0.9 % Basophils (%) (Auto) 0.0 % Neutrophils # (Auto) 8.31 1.4-6.5 K/uL Lymphocytes # (Auto) 1.74 1.2-3.4 K/uL Monocytes # (Auto) 0.89 0.11-0.59 K/uL Eosinophils # (Auto) 0.10 0-0.5 K/uL Basophils # (Auto) 0.00 0-0.2 K/uL RDW Standard Deviation 40.8 36.4-46.3 fL RDW Coefficient of Variation 14.3 11.5-14.5 % Immature Granulocyte % (Auto) 1.8 % Immature Granulocyte # (Auto) 0.20 0.00-0.02 K/uL Prothrombin Time 11.2 9.0-12.0 SECONDS Prothromb Time International Ratio 1.1 0.9-1.1 Activated Partial Thromboplast Time 24.5 21.0-31.0 SECONDS Partial Thromboplastin Ratio 0.9 Sodium Level 134 136-145 mmol/L Potassium Level 4.1 3.5-5.1 mmol/L Chloride Level 104 98-107 mmol/L Carbon Dioxide Level 21 21-32 mmol/L Anion Gap 9.0 3-11 mmol/L Blood Urea Nitrogen 49 7-18 mg/dl Creatinine 1.31 0.60-1.40 mg/dl Est Creatinine Clear Calc Drug Dose 43.9 ml/min Estimated GFR () 63.0 Estimated GFR (Non- 54.4 BUN/Creatinine Ratio 37.1 10-20 Random Glucose 219 70-99 mg/dl Calcium Level 8.0 8.5-10.1 mg/dl Total Bilirubin 0.7 0.2-1 mg/dl Aspartate Amino Transf (AST/SGOT) 10 15-37 U/L Alanine Aminotransferase (ALT/SGPT) 20 12-78 U/L Alkaline Phosphatase 71 45-117 U/L Troponin I 0.029 0-0.045 ng/ml Total Protein 5.6 6.4-8.2 gm/dl Albumin 2.6 3.4-5.0 gm/dl Globulin 3.0 2.5-4.0 gm/dl Albumin/Globulin Ratio 0.9 0.9-2 Lipase 123 73-393 U/L Thyroid Stimulating Hormone (TSH) 1.430 0.300-4.500 uIu/ml Free Thyroxine 1.19 0.80-1.60 ng/dl Diagnostic Radiology CXR: No acute cardiopulmonary abnormality EKG EKG: Sinus Tachycardia, QTC:458 Impression H&P v2 Impression Assessment and Plan Melena/GI bleeding Symptomatic Anemia Was on ASA, Plavix for CAD Last Colonoscopy in 2011: Internal hemorrhoids INR:1.1 Hb:9.1 (Prior Hb around 14) 1 Unit PRBC given in ED Monitor H&H Transfuse PRBCs as needed Hold Aspirin, Plavix Avoids NASIDs Started on IV Protonix ggt NPO , IV fluids GI consulted Hypotension: Sinus Tachycardia Secondary to above Hold HTN meds IV fluids with caution as H/O ischemic cardiomyopathy Elevated Blood Sugar Levels: Likely secondary to recent prednisone use check A1C ISS, monitor BGs CKD III Cr stable Monitor renal function CAD s/p CABG and stents Ischemic Cardiomyopathy Held Aspirin, plavix continue metoprolol resume statin as able HTN currently Hypotensive Hold Lisinopril monitor Hypothyroidism: TSH: normal Continue Levothyroxine H/O SVT S/P Ablation continue metoprolol H/O CVA: PAD S/P R carotid endarterectomy ASA, Plavix held Resume statins as able DVT Px: SCDs Code Status: Full Code Disposition: Monitor in Tele Resuscitation Status VTE Prophylaxis Will order VTE Prophylaxis: Yes Reason for no VTE drug order: Contraindicated Physical Exam (per Admitting): General Appearance: WD/WN, no apparent distress Head: normocephalic, atraumatic Eyes: normal inspection, PERRL, EOMI ENT: normal ENT inspection, hearing grossly normal Neck: supple, trachea midline Respiratory/Chest: chest non-tender, lungs clear, normal breath sounds, no respiratory distress, no accessory muscle use Cardiovascular: regular rate, rhythm, no edema, no murmur, + tachycardia Abdomen/GI: normal bowel sounds, soft, + tenderness (mild LUQ) Back: normal inspection Extremities/Musculoskelatal: normal inspection, no pedal edema 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/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 This was treated with epinephrine injection and thermal therapy. Recommendations as per GI Liquid diet for today-advanced as tolerated Continue Protonix drip for another 24 hours Upon discharge patient should be on Protonix 40 mg BIB for 6 weeks and then daily Avoid unnecessary NSAIDs and prednisone (may use a baby aspirin) Repeat upper endoscopy in 3 months Biopsies taken from the stomach to evaluate for H pylori infection Clinically stable Will check CBC tomorrow and if stable will discharge Hb remains stable PPI changed to oral Will discharge home today Abnormal EKG: ST changes in anterior leads Patient denies chest pain/discomfort Troponin X2: negative Trend cardiac enzymes Check ECHO:: No change compared to previous study of 07/13. * Normal LV chamber size and wall thickness. * Moderately reduced LV systolic function, EF 35-40%. * Moderate to severe hypokinesis of the mid to apical anterolateral, anterior , anteroseptal, inferoseptal and inferior valentine. * Grade II diastolic dysfunction. * Mild aortic regurgitation. * Trace mitral regurgitation. Cardiology consulted-appreciate Input Cardiac Cath::1. Severe chronic multivessel coronary artery disease - 80-90% mid LAD in-stent restenosis - 40-50% ostial to mid circumflex. 100% occluded ostial OM1 stent -2. Widely patent vein grafts to OM1, mid LAD (60-70% stenosis at LAD anastomosis). -3. Normal intracardiac filling pressure Recommendations: -Chronic stable disease, no acute obstructive lesions. -OK to proceed with endoscopy as needed. -Continued ASCVD risk factor modification per Dr. Couch. -remains free from any symptoms -Cardiac medications restarted -no issues now Hypotension: Sinus Tachycardia: Secondary to above Hold HTN meds IV fluids with caution as H/O ischemic cardiomyopathy BP is controlled now Elevated Blood Sugar Levels: Likely secondary to recent prednisone use check A1C:7.0 ISS, monitor BGs CKD III Cr stable Monitor renal function CAD s/p CABG and stents Ischemic Cardiomyopathy Held Aspirin, plavix Continue metoprolol Resume statin as able Cardiac cath as above -medical management contemplated HTN Initially presented with Hypotension Hold Lisinopril continue coreg monitor Hypothyroidism: TSH: normal Continue Levothyroxine H/O SVT S/P Ablation continue metoprolol H/O CVA: PAD S/P R carotid endarterectomy ASA, Plavix held Resume statins as able DVT Px: SCDs Code Status: Full Code Disposition: Monitor in Tele DISPOSITION Discharge this afternoon Total time spent on discharge = This includes examination of the patient, discharge planning, medication reconciliation, and communication with other providers. Discharge Instructions Date of Service November 28, 2017. 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 Instructions / Follow-Up Instructions / Follow-Up Please make an appointment with your PCP in 1week-May need to start antidiabetic medications in future..Will need to have repeat EGD in 3 months Current Hospital Diet Patient's current hospital diet: Regular Diet, AHA Diet (Heart Healthy), Diabetes Type 2 Diet Discharge Diet Recommended Diet: Diabetes Type 2 Diet Procedures Procedures Performed: EGD w/Biopsies, Epinephrine injection and BiCap hemostasis Pending Studies Studies pending at discharge: no Laboratory Results Hemoglobin A1c Test 11/25/17 06:34 Range/Units Estimated Average Glucose 154 mg/dl Hemoglobin A1c 7.0 H 4.5-5.6 % Medical Emergencies . Who to Call and When: Medical Emergencies: If at any time you feel your situation is an emergency, please call 911 immediately. . Non-Emergent Contact Non-Emergency issues call your: Primary Care Provider . Past History Medical & Surgical History: (1) SVT (supraventricular tachycardia) (2) Tachycardia (3) GI bleed (4) Chest wall pain (5) Elevated troponin (6) Cardiac stent placement (7) Kidney stent placement (8) Urinary retention (9) Anemia (10) Renal insufficiency . "Provider Documentation" section prepared by Petr Leigh. . <Electronically signed by Petr Leigh M.D.> Signed: 11/28/17 0035
== END 2017-11-28 15:28 | disposition home or self-care (01) | DRG 378 ==
LOC: C.EDB 11:08 → C.2E 14:25 → ENRESERV 15:12 → C.MS4W 11-27 17:35
PROVIDERS: ADMIT Internal Medicine; ATTEND Internal Medicine
PROC: 06HY33Z Insertion of Infusion Device into Lower Vein, Percutaneous Approach (ICD-10-PCS; principal; 2017-11-24)
PROC: B2111ZZ Fluoroscopy of Multiple Coronary Arteries using Low Osmolar Contrast (ICD-10-PCS; 2017-11-25)
PROC: B41F1ZZ Fluoroscopy of Right Lower Extremity Arteries using Low Osmolar Contrast (ICD-10-PCS; 2017-11-25)
PROC: 4A023N7 Measurement of Cardiac Sampling and Pressure, Left Heart, Percutaneous Approach (ICD-10-PCS; 2017-11-25)
PROC: B2131ZZ Fluoroscopy of Multiple Coronary Artery Bypass Grafts using Low Osmolar Contrast (ICD-10-PCS; 2017-11-25)
PROC: 0DB68ZX Excision of Stomach, Via Natural or Artificial Opening Endoscopic, Diagnostic (ICD-10-PCS; 2017-11-26)
PROC: 0W3P8ZZ Control Bleeding in Gastrointestinal Tract, Via Natural or Artificial Opening Endoscopic (ICD-10-PCS; 2017-11-26)
DX: K26.4 Chronic or unspecified duodenal ulcer with hemorrhage (principal); D62 Acute posthemorrhagic anemia; I24.8 Other forms of acute ischemic heart disease; T82.855A Stenosis of coronary artery stent, initial encounter; K29.70 Gastritis, unspecified, without bleeding; I95.9 Hypotension, unspecified; R94.31 Abnormal electrocardiogram [ECG] [EKG]; R73.9 Hyperglycemia, unspecified; T38.0X5A Adverse effect of glucocorticoids and synthetic analogues, initial encounter; R00.0 Tachycardia, unspecified; I25.5 Ischemic cardiomyopathy; Y71.2 Prosthetic and other implants, materials and accessory cardiovascular devices associated with adverse incidents; I25.10 Atherosclerotic heart disease of native coronary artery without angina pectoris; N18.3 Chronic kidney disease, stage 3 (moderate); E03.9 Hypothyroidism, unspecified; M10.9 Gout, unspecified; Z95.1 Presence of aortocoronary bypass graft; Z95.5 Presence of coronary angioplasty implant and graft; Z86.73 Personal history of transient ischemic attack (TIA), and cerebral infarction without residual deficits; Z87.891 Personal history of nicotine dependence; Z79.02 Long term (current) use of antithrombotics/antiplatelets; Z79.52 Long term (current) use of systemic steroids; Z79.82 Long term (current) use of aspirin; Z79.899 Other long term (current) drug therapy

== ENCOUNTER → 2018-03-05 | Outpatient (CLI) | payer OTHER ==
[~2018-03-05] MED LIST changes: -CLOP1TAB54 PO; +FERR1TAB23 PO; -LEVO25TA PO; +LEVO50TA6 PO; +LISI-461 PO; -LPT/40 PO; +PANT40TA PO
--- NOTE | 2018-03-05 12:16 | DIAGNOSTIC IMAGING REPORT ---
SINGLE CONTRAST UPPER GI SERIES CLINICAL HISTORY: History of duodenal ulcer with hemorrhage status post surgery. COMPARISON STUDY: CT of the abdomen and pelvis February 08, 2018. TECHNIQUE: Single contrast upper GI series was performed utilizing Optiray given recent procedure. FLUOROSCOPY TIME: 3.9 minutes. FINDINGS: 21 fluoroscopic images were obtained. Mucosal detail is diminished on this exam. No esophageal stricture or mass was identified. Gastric fold pattern is grossly unremarkable. No reflux was elicited. Duodenal fold pattern is within normal limits. No contrast extravasation is noted. Caliber of the opacified region is unremarkable. IMPRESSION: 1. Unremarkable single contrast GI series. No contrast extravasation to suggest leak. 2. Decreased mucosal detail given single contrast exam. Electronically signed by: Miquel Pickering M.D. 03/05/2018 12:14 PM Dictated Date/Time: 03/05/2018 12:12 PM
== END | disposition home or self-care (01) ==
LOC: C.RAD 10:19
PROVIDERS: ATTEND Internal Medicine Gastroenterology
DX: K26.0 Acute duodenal ulcer with hemorrhage (principal)

== ENCOUNTER 2021-02-17 16:59 | Inpatient (IN) ==
--- NOTE | 2021-02-17 17:42 | Emergency Department Note ---
History of Present Illness General Chief complaint: Shortness of Breath/Dyspnea Stated complaint: FEVER, HARD TIME BREATHING Time Seen by Provider: 02/17/21 17:24 History of Present Illness Provider complaint: Shortness of breath cough fever chest pain Onset (ago): day(s) 2 Location: chest Severity: moderate Pain Consistency: + constant Maximum Pain Intensity: 6 Current Pain Intensity: 6 Quality: + stabbing, + aching, + sharp and + dull Relieved By: + none Exacerbated By: + none Associated symptoms: + chest pain, + cough, + fever/chills, + shortness of br eath and + weakness 75-year-old male presents emergency department with his son-in-law who is translating. Son-in-law states that for the last 2 days the patient has been reporting shortness of breath, chest pain, fever, cough. Son-in-law reports that he is concerned that the patient might have Covid although he has been vaccinated gets Covid in October. No hemoptysis. Patient has been taking nitroglycerin without relief for his chest pain. No chest pain currently. Patient still is states the chest pain is worse with coughing. Patient also reports polyuria. No dysuria or hematuria. No nausea vomiting or diarrhea. Home Medications Medication Instructions Recorded Confirmed Type aspirin 81 mg tablet,delayed 81 mg PO QAM 05/09/18 02/17/21 History release (Aspir-) ferrous sulfate 325 mg (65 mg 325 mg PO QAM 05/09/18 02/17/21 History iron) tablet (FeroSul) finasteride 5 mg tablet 5 mg PO DAILY 05/09/18 02/17/21 History levothyroxine 50 mcg capsule 50 mcg PO QAM 05/09/18 02/17/21 History pantoprazole 20 mg tablet,delayed 20 mg PO QAM 05/09/18 02/17/21 History release (Protonix) sucralfate 1 gram tablet (Carafate) 1 g PO ACHS 05/09/18 02/17/21 History tamsulosin 0.4 mg capsule 0.4 mg PO DAILY 05/09/18 02/17/21 History atorvastatin 80 mg tablet 80 mg PO DAILY 02/17/21 02/17/21 History lisinopril 10 mg tablet 10 mg PO DAILY 02/17/21 02/17/21 History metoprolol succinate 50 mg 50 mg PO DAILY 02/17/21 02/17/21 History tablet,extended release 24 hr Allergies Allergy/AdvReac Type Severity Reaction Status Date / Time No Known Allergies Allergy Verified 02/17/21 21:13 Past Med/Surg History Medical History (Updated 02/18/21 @ 00:53 by Geoffrey Cavazos) Atrial fibrillation DAUGHTER "THINKS HE HAS IT" Borderline diabetes BPH (benign prostatic hyperplasia) Deep vein thrombosis 2 YEARS AGO GERD (gastroesophageal reflux disease) GI bleed Gout Hyperlipidemia Hypertension Hypothyroidism Kidney stones Myocardial Infarction 2013 Osteoarthritis Stomach ulcer Stroke 2013 Surgical History H/O cardiac radiofrequency ablation SVT PER OLD RECORDS History of cardiac cath STENTS IN HEART History of colonoscopy History of coronary artery bypass graft 2 VESSELS 2013 AT [facility] History of cystoscopy STONE RETRIEVAL History of lithotripsy History of tooth extraction Social History Smoking Status: Former smoker Cigarettes Per Day: QUIT 10 YEARS AGO; Second Hand Exposure: No; Hx Alcohol Use: No Hx Substance Use: No Preferred Language: Amharic Communication Ability: Effective Speed Reading Teacher Required: Yes Beliefs That Will Affect Care: None Current Living Situation: Family Current Living Situation Comment: Lives with daughter Sharmila Other Information That Helps Us Care for You: No Feels Safe at Home: Yes Safety Concerns: Feels Safe At This Time Assistive Devices: None Review of Systems A total of 10 systems reviewed and were otherwise negative Physical Exam Vital Signs Vital Signs - 24 hr 02/17/21 17:07 02/17/21 17:20 02/17/21 17:30 Temperature 37.8 C H Temperature Source Temporal Artery Scan Pulse Rate 104 H 105 H 105 H Pulse Rate [Left Finger] Pulse Rate from SpO2 Sensor 93 H Pulse Rhythm [Left Finger] Pulse Strength [Left Finger] Respiratory Rate 20 24 20 Respiratory Effort / Characteristics Respiratory Depth Respiratory Pattern Blood Pressure 154/95 H 180/113 H 173/110 H Blood Pressure [Left Arm] Blood Pressure Mean 114 135 131 Blood Pressure Mean [Left Arm] Blood Pressure Position [Left Arm] Pulse Oximetry 96 96 Oxygen Delivery Method Room Air Room Air Sepsis Recent Fever Within 48 Hours Yes Sepsis New/Unexplained Change in Mental Status No Sepsis Action Taken by Nursing No Action Required 02/17/21 17:35 02/17/21 18:01 02/17/21 18:10 Temperature Temperature Source Pulse Rate 106 H 100 H Pulse Rate [Left Finger] Pulse Rate from SpO2 Sensor Pulse Rhythm [Left Finger] Pulse Strength [Left Finger] Respiratory Rate 24 24 Respiratory Effort / Characteristics Respiratory Depth Respiratory Pattern Blood Pressure Blood Pressure [Left Arm] Blood Pressure Mean Blood Pressure Mean [Left Arm] Blood Pressure Position [Left Arm] Pulse Oximetry 99 96 Oxygen Delivery Method Room Air Room Air Room Air Sepsis Recent Fever Within 48 Hours Sepsis New/Unexplained Change in Mental Status Sepsis Action Taken by Nursing 02/17/21 18:20 02/17/21 18:30 02/17/21 18:36 Temperature Temperature Source Pulse Rate 103 H 98 H Pulse Rate [Left Finger] 100 H Pulse Rate from SpO2 Sensor Pulse Rhythm [Left Finger] Pulse Strength [Left Finger] Normal Respiratory Rate 25 H 25 H 24 Respiratory Effort / Characteristics Non-Labored Respiratory Depth Normal Respiratory Pattern Regular Blood Pressure Blood Pressure [Left Arm] 149/68 H Blood Pressure Mean Blood Pressure Mean [Left Arm] 95 Blood Pressure Position [Left Arm] Lying Pulse Oximetry 99 98 96 Oxygen Delivery Method Room Air Room Air Room Air Sepsis Recent Fever Within 48 Hours Sepsis New/Unexplained Change in Mental Status Sepsis Action Taken by Nursing 02/17/21 18:48 02/17/21 19:00 02/17/21 19:30 Temperature Temperature Source Pulse Rate 94 H Pulse Rate [Left Finger] 99 H Pulse Rate from SpO2 Sensor Pulse Rhythm [Left Finger] Pulse Strength [Left Finger] Respiratory Rate 24 21 19 Respiratory Effort / Characteristics Non-Labored Non-Labored Non-Labored Respiratory Depth Normal Respiratory Pattern Regular Blood Pressure 127/63 Blood Pressure [Left Arm] 140/61 Blood Pressure Mean 84 Blood Pressure Mean [Left Arm] 87 Blood Pressure Position [Left Arm] Lying Pulse Oximetry 99 98 99 Oxygen Delivery Method Room Air Room Air Room Air Sepsis Recent Fever Within 48 Hours Sepsis New/Unexplained Change in Mental Status Sepsis Action Taken by Nursing 02/17/21 19:44 02/17/21 19:45 02/17/21 20:00 Temperature 37.6 C H Temperature Source Pulse Rate 97 H 95 H Pulse Rate [Left Finger] 99 H Pulse Rate from SpO2 Sensor 94 H Pulse Rhythm [Left Finger] Regular Pulse Strength [Left Finger] Normal Respiratory Rate 24 24 26 H Respiratory Effort / Characteristics Non-Labored Respiratory Depth Normal Respiratory Pattern Regular Blood Pressure 169/103 H Blood Pressure [Left Arm] 171/89 H Blood Pressure Mean 125 Blood Pressure Mean [Left Arm] 116 Blood Pressure Position [Left Arm] Lying Pulse Oximetry 99 97 99 Oxygen Delivery Method Room Air Room Air Room Air Sepsis Recent Fever Within 48 Hours Sepsis New/Unexplained Change in Mental Status Sepsis Action Taken by Nursing 02/17/21 20:30 02/17/21 21:00 02/17/21 21:30 Temperature Temperature Source Pulse Rate Pulse Rate [Left Finger] Pulse Rate from SpO2 Sensor Pulse Rhythm [Left Finger] Pulse Strength [Left Finger] Respiratory Rate 25 H Respiratory Effort / Characteristics Non-Labored Non-Labored Non-Labored Respiratory Depth Respiratory Pattern Blood Pressure Blood Pressure [Left Arm] Blood Pressure Mean Blood Pressure Mean [Left Arm] Blood Pressure Position [Left Arm] Pulse Oximetry 99 99 100 Oxygen Delivery Method Room Air Room Air Room Air Sepsis Recent Fever Within 48 Hours Sepsis New/Unexplained Change in Mental Status Sepsis Action Taken by Nursing 02/17/21 21:46 Temperature Temperature Source Pulse Rate Pulse Rate [Left Finger] 98 H Pulse Rate from SpO2 Sensor Pulse Rhythm [Left Finger] Pulse Strength [Left Finger] Respiratory Rate 24 Respiratory Effort / Characteristics Non-Labored Respiratory Depth Normal Respiratory Pattern Regular Blood Pressure Blood Pressure [Left Arm] 170/81 H Blood Pressure Mean Blood Pressure Mean [Left Arm] 110 Blood Pressure Position [Left Arm] Lying Pulse Oximetry 99 Oxygen Delivery Method Room Air Sepsis Recent Fever Within 48 Hours Sepsis New/Unexplained Change in Mental Status Sepsis Action Taken by Nursing Physical Exam GENERAL: He is oriented to person, place, and time. He appears well-developed and well-nourished. He does not appear distressed. HENT: Exam performed. - Head: Normocephalic and atraumatic. - Right Ear: External ear normal. No mastoid tenderness. - Left Ear: External ear normal. No mastoid tenderness. - Mouth/Throat: The oropharynx is clear and moist. No trismus in the jaw. No dental abscesses or uvula swelling. No oropharyngeal exudate or tonsillar abscesses. EYES: Conjunctivae and EOM are normal. Pupils are equal, round, and reactive to light. Right eye exhibits no discharge. Left eye exhibits no discharge. No scleral icterus. NECK: Normal range of motion. Neck supple. No JVD present. No spinous process tenderness present. No carotid bruit present. No rigidity. No tracheal deviation and normal range of motion present. No Brudzinski's sign and no Kernig's sign noted. CV: Normal rate, regular rhythm, normal heart sounds and intact distal pulses. There is no peripheral edema. Palpable radial pulses bue. PULM/CHEST: Effort normal and breath sounds normal. No respiratory distress. No stridor. He has no wheezes. He has no rales. - Chest Wall: He exhibits no tenderness. ABD: The abdomen is soft. Bowel sounds are normal. He has no distension. No mass is present. There is no tenderness. There is no rebound, no guarding, no Vogel's sign and no tenderness at McBurney's point. Rovsig negative. MUSC/SKEL: Normal range of motion. There is no peripheral edema, tenderness or deformity. LYMPH: No cervical adenopathy. NEURO: He is alert and oriented to person, place, and time. He has normal strength. No cranial nerve deficit or sensory deficit. Coordination and gait normal. GCS eye subscore is 4. GCS verbal subscore is 5. GCS motor subscore is 6. Cerebellar tests wnl. SKIN: Skin is warm and dry. He is not diaphoretic. PSYCH: He has a normal mood and affect. Behavior is normal. Judgment and thought content normal. Course Course 1723: The patient was evaluated in room B6. A complete history and physical exam was performed Cardiac monitoring: An order was placed for continuous cardiac monitoring. The monitor shows a rate of 90-110 with atrial fibrilation rhythm 2049: Vital signs stable. Labs showed a total bilirubin of 1.7, AST of 47, troponin of 0.065. CTA of the chest showed no PE or dissection but did show atherosclerosis with multiple areas of plaque ulceration and also like projection. Patient will be admitted to the [facility] team given the patient's shortness of breath and elevated troponin and history of coronary artery disease. Dr. Sunshine notified Administered Medications Doxycycline Hyclate 100 mg/ (Dextrose) 110 mls @ 50 mls/hr IV Q12H GENARO Stop: 02/24/21 23:29 Last Admin: 02/17/21 23:51 Dose: 50 mls/hr Documented by: [id number] Magnesium Sulfate/Dextrose (Magnesium Sulfate / D5w) 1 gm in 100 mls @ 50 mls/hr IV ONE ONE Stop: 02/18/21 01:14 Last Admin: 02/17/21 23:22 Dose: 50 mls/hr Documented by: [id number] Discontinued Medications Ioversol (Optiray 320 125ml) 118 ml IV ONCE ONE Stop: 02/17/21 19:22 Last Admin: 02/17/21 19:21 Dose: 118 ml Documented by: [id number] Medical Decision Making Laboratory Data Result diagrams: 02/17/21 18:02 02/17/21 18:02 Lab Results 02/17/21 02/17/21 02/17/21 Range/Units 18:02 18:02 18:02 WBC (4.8-10.8) K/uL RBC (4.7-6.1) M/uL Hgb (14.0-18.0) g/dL Hct (42-52) % MCV (80-100) fL MCH (25-34) pg MCHC (32-36) g/dL RDW Std Deviation (36.4-46.3) fL RDW Coeff of Alexandra (11.5-14.5) % Plt Count (130-400) K/uL MPV (7.4-10.4) fL Immature Gran % (Auto) % Neut % (Auto) % Lymph % (Auto) % Isabela % (Auto) % Eos % (Auto) % Baso % (Auto) % Neut # (Auto) (1.4-6.5) K/uL Lymph # (Auto) (1.2-3.4) K/uL Isabela # (Auto) (0.11-0.59) K/uL Eos # (Auto) (0-0.5) K/uL Baso # (Auto) (0-0.2) K/uL Immature Gran # (Auto) (0.00-0.02) K/uL PT (9.0-12.0) Seconds INR (0.9-1.1) APTT (21.0-31.0) Seconds PTT Ratio VBG pH 7.45 H (7.36-7.41) VBG pCO2 36 L (38-50) mmHg VBG pO2 50 mmHg VBG HCO3 25 mmol/L VBG O2 Saturation 86.8 % VBG Base Excess 0.9 mEq/L Barometric Pressure 735.2 mm/Hg Sodium 139 (136-145) mmol/L Potassium 3.8 (3.5-5.1) mmol/L Chloride 108 H (98-107) mmol/L Carbon Dioxide 24 (21-32) mmol/L Anion Gap 7.0 (3-11) BUN 21 H (7-18) mg/dl Creatinine 1.36 (0.6-1.4) mg/dl Est Cr Clr Drug Dosing 39.9 ml/min Est GFR ( Amer) 59.0 ml/min Est GFR (Non-Af Amer) 50.9 ml/min BUN/Creatinine Ratio 15.1 (10-20) Glucose 107 H (70-99) mg/dl Lactate (0.4-2.0) mmol/L Calcium 8.8 (8.5-10.1) mg/dl Magnesium 1.7 L (1.8-2.4) mg/dl Total Bilirubin 1.7 H (0.2-1) mg/dl AST 47 H (15-37) U/L ALT 66 (12-78) U/L Alkaline Phosphatase 213 H (45-117) U/L Troponin I 0.065 H* (0-0.045) ng/ml Total Protein 7.7 (6.4-8.2) gm/dl Albumin 3.3 L (3.4-5.0) gm/dl Globulin 4.4 H (2.5-4.0) gm/dl Albumin/Globulin Ratio 0.8 L (0.9-2) Procalcitonin 0.15 (0-0.5) ng/ml COVID-19 Eval Order SARS-CoV-2 (PCR) (Negative) Influ A Molecular Assay (Negative) Influ B Molecular Assay (Negative) 02/17/21 02/17/21 02/17/21 Range/Units 18:02 18:02 18:02 WBC 7.53 (4.8-10.8) K/uL RBC 5.27 (4.7-6.1) M/uL Hgb 16.2 (14.0-18.0) g/dL Hct 47.2 (42-52) % MCV 89.6 (80-100) fL MCH 30.7 (25-34) pg MCHC 34.3 (32-36) g/dL RDW Std Deviation 41.7 (36.4-46.3) fL RDW Coeff of Alexandra 12.8 (11.5-14.5) % Plt Count 124 L (130-400) K/uL MPV 10.8 H (7.4-10.4) fL Immature Gran % (Auto) 0.4 % Neut % (Auto) 78.0 % Lymph % (Auto) 8.6 % Isabela % (Auto) 12.5 % Eos % (Auto) 0.4 % Baso % (Auto) 0.1 % Neut # (Auto) 5.87 (1.4-6.5) K/uL Lymph # (Auto) 0.65 L (1.2-3.4) K/uL Isabela # (Auto) 0.94 H (0.11-0.59) K/uL Eos # (Auto) 0.03 (0-0.5) K/uL Baso # (Auto) 0.01 (0-0.2) K/uL Immature Gran # (Auto) 0.03 H (0.00-0.02) K/uL PT 11.1 (9.0-12.0) Seconds INR 1.1 (0.9-1.1) APTT 35.3 H (21.0-31.0) Seconds PTT Ratio 1.3 VBG pH (7.36-7.41) VBG pCO2 (38-50) mmHg VBG pO2 mmHg VBG HCO3 mmol/L VBG O2 Saturation % VBG Base Excess mEq/L Barometric Pressure mm/Hg Sodium (136-145) mmol/L Potassium (3.5-5.1) mmol/L Chloride (98-107) mmol/L Carbon Dioxide (21-32) mmol/L Anion Gap (3-11) BUN (7-18) mg/dl Creatinine (0.6-1.4) mg/dl Est Cr Clr Drug Dosing ml/min Est GFR ( Amer) ml/min Est GFR (Non-Af Amer) ml/min BUN/Creatinine Ratio (10-20) Glucose (70-99) mg/dl Lactate 1.4 (0.4-2.0) mmol/L Calcium (8.5-10.1) mg/dl Magnesium (1.8-2.4) mg/dl Total Bilirubin (0.2-1) mg/dl AST (15-37) U/L ALT (12-78) U/L Alkaline Phosphatase (45-117) U/L Troponin I (0-0.045) ng/ml Total Protein (6.4-8.2) gm/dl Albumin (3.4-5.0) gm/dl Globulin (2.5-4.0) gm/dl Albumin/Globulin Ratio (0.9-2) Procalcitonin (0-0.5) ng/ml COVID-19 Eval Order SARS-CoV-2 (PCR) (Negative) Influ A Molecular Assay (Negative) Influ B Molecular Assay (Negative) 02/17/21 02/17/21 02/17/21 Range/Units 18:40 18:40 18:40 WBC (4.8-10.8) K/uL RBC (4.7-6.1) M/uL Hgb (14.0-18.0) g/dL Hct (42-52) % MCV (80-100) fL MCH (25-34) pg MCHC (32-36) g/dL RDW Std Deviation (36.4-46.3) fL RDW Coeff of Alexandra (11.5-14.5) % Plt Count (130-400) K/uL MPV (7.4-10.4) fL Immature Gran % (Auto) % Neut % (Auto) % Lymph % (Auto) % Isabela % (Auto) % Eos % (Auto) % Baso % (Auto) % Neut # (Auto) (1.4-6.5) K/uL Lymph # (Auto) (1.2-3.4) K/uL Isabela # (Auto) (0.11-0.59) K/uL Eos # (Auto) (0-0.5) K/uL Baso # (Auto) (0-0.2) K/uL Immature Gran # (Auto) (0.00-0.02) K/uL PT (9.0-12.0) Seconds INR (0.9-1.1) APTT (21.0-31.0) Seconds PTT Ratio VBG pH (7.36-7.41) VBG pCO2 (38-50) mmHg VBG pO2 mmHg VBG HCO3 mmol/L VBG O2 Saturation % VBG Base Excess mEq/L Barometric Pressure mm/Hg Sodium (136-145) mmol/L Potassium (3.5-5.1) mmol/L Chloride (98-107) mmol/L Carbon Dioxide (21-32) mmol/L Anion Gap (3-11) BUN (7-18) mg/dl Creatinine (0.6-1.4) mg/dl Est Cr Clr Drug Dosing ml/min Est GFR ( Amer) ml/min Est GFR (Non-Af Amer) ml/min BUN/Creatinine Ratio (10-20) Glucose (70-99) mg/dl Lactate (0.4-2.0) mmol/L Calcium (8.5-10.1) mg/dl Magnesium (1.8-2.4) mg/dl Total Bilirubin (0.2-1) mg/dl AST (15-37) U/L ALT (12-78) U/L Alkaline Phosphatase (45-117) U/L Troponin I (0-0.045) ng/ml Total Protein (6.4-8.2) gm/dl Albumin (3.4-5.0) gm/dl Globulin (2.5-4.0) gm/dl Albumin/Globulin Ratio (0.9-2) Procalcitonin (0-0.5) ng/ml COVID-19 Eval Order Covid19 at [facility] SARS-CoV-2 (PCR) NEGATIVE (Negative) Influ A Molecular Assay Negative (Negative) Influ B Molecular Assay Negative (Negative) Imaging Data Radiologist's Impression: Chest X-Ray 02/17/21 17:40 XR chest 1V portable CLINICAL HISTORY: SEPSIS COMPARISON STUDY: February 03, 2018 FINDINGS: No pneumothorax. No pleural effusion. No large infiltrates or consolidative lesions are seen. Cardiomediastinal silhouette is within normal limits in size. No significant pulmonary vascular congestion.. Aorta is tortuous. Osseous structures: unremarkable Redemonstration of midline sternotomy wires and surgical clips at the left upper lung region. IMPRESSION: 1. No large infiltrates or consolidative lesions. ACT 112: Negative or not required by law. The above report was generated using voice recognition software. It may contain grammatical, syntax or spelling errors. Electronically signed by: Claudia Onofre DO 02/17/2021 6:25 PM Chest CTA 02/17/21 18:45 CT ANGIOGRAM OF THE CHEST CLINICAL HISTORY: ro PE COMPARISON STUDY: No previous studies for comparison. TECHNIQUE: Following the IV administration of of Optiray, CT angiogram of the thorax was performed from the thoracic inlet to the lung bases utilizing the pulmonary embolus protocol. Images are reviewed in the axial, sagittal, and coronal planes. IV contrast was administered without complication. MIP imaging was performed. A dose lowering technique was utilized adhering to the principles of ALARA. CT DOSE: 233.43 mGy.cm FINDINGS: There is adequate opacification within main pulmonary artery. No definite acute central pulmonary embolus is seen. Evaluation of peripheral branches of pulmonary artery limited due to motion artifact. Main pulmonary artery is normal in caliber. No evidence of right heart strain. There is minimal four-chamber cardiomegaly seen. No pericardial effusion demonstrated. Moderate coronary calcifications and possible stent within left anterior distending artery are seen. Status post CABG. Aorta is normal in caliber. There are extensive soft plaques are seen within aortic wall from proximal aspect of aortic arch and extending distally, associated with luminal irregularity and multiple areas of plaque ulceration and also like projection. Evaluation is limited due to nondedicated technique and insufficient opacification within distal portion of thoracic aorta. No definite aortic dissection is seen. Tracheobronchial tree is patent. Minimal atelectasis is seen at bilateral bases without large infiltrates or consolidative lesions. Evaluation of pulmonary parenchyma is significantly limited due to motion artifact. Limited evaluation of upper abdominal viscera shows no evidence of acute abnormalities. Evaluation of osseous structures shows sternotomy changes and mild degenerative changes of the spine. IMPRESSION: 1. There is no definite central pulmonary embolus. Evaluation of peripheral branches of pulmonary artery is limited due to motion artifact. No secondary sign of pulmonary embolus. 2. Minimal four-chamber cardiomegaly. Status post CABG. 3. Extensive atherosclerosis of thoracic aorta with multiple areas of plaque ulceration and ulcer like projection. Please correlate above-mentioned findings with prior history of aortic abnormalities. ACT 112: Negative or not required by law. The above report was generated using voice recognition software. It may contain grammatical, syntax or spelling errors. Electronically signed by: Claudia Onofre DO 02/17/2021 8:25 PM ECG Data Additional Comments: Bigeminy pattern with a rate of 100. WA 150 QRS [address] elevation or ST depression. [facility] Narrative 1724: The patient was evaluated in room B6. A complete history and physical exam was performed Cardiac monitoring: An order was placed for continuous cardiac monitoring. The monitor shows a rate of 90-110 with atrial fibrilation rhythm 2049: Vital signs stable. Labs showed a total bilirubin of 1.7, AST of 47, troponin of 0.065. CTA of the chest showed no PE or dissection but did show atherosclerosis with multiple areas of plaque ulceration and also like projection. Patient will be admitted to the [facility] team given the patient's shortness of breath and elevated troponin and history of coronary artery disease. Dr. Sunshine notified Impression & Plan Dyspnea, Elevated troponin Discharge Plan Visit Data Chief Complaint: Shortness of Breath/Dyspnea Stated Complaint: FEVER, HARD TIME BREATHING ED Provider: Geoffrey Cavazos Discharge Problem: Dyspnea, Elevated troponin Patient Disposition: Admitted As Inpatient Discharge Instructions Interventions: ED Discharge Assessment Last Done: 02/17/21 22:42 Discharge Problem: Dyspnea Qualifiers: Dyspnea type: unspecified Qualified Code(s): R06.00 - Dyspnea, unspecified
[2021-02-17 18:16] LABS: Base Excess VBG 0.9 mEq/L; Oxygen Saturation VBG 86.8 %; pH VBG 7.45 (7.36-7.41)
[2021-02-17 18:24] LABS: Basophils # (auto) 0.01 K/uL (0-0.2); Basophils % (auto) 0.1 %; Eosinophils # (auto) 0.03 K/uL (0-0.5); Eosinophils % (auto) 0.4 %; Hematocrit (blood only) 47.2 % (42-52); Hemoglobin 16.2 g/dL (14.0-18.0); Immature Granulocytes # (auto) 0.03 K/uL (0.00-0.02); Immature Granulocytes % (auto) 0.4 %; Lymphocytes # (auto) 0.65 K/uL (1.2-3.4); Lymphocytes % (auto) 8.6 %; Mean Corpuscular Hemoglobin 30.7 pg (25-34); Mean Corpuscular Hgb Conc 34.3 g/dL (32-36); Mean Corpuscular Volume 89.6 fL (80-100); Mean Platelet Volume 10.8 fL (7.4-10.4); Monocytes # (auto) 0.94 K/uL (0.11-0.59); Monocytes % (auto) 12.5 %; Neutrophils # (auto) 5.87 K/uL (1.4-6.5); Platelet Count 124 K/uL (130-400); RDW Coefficient of Variation 12.8 % (11.5-14.5); RDW Standard Deviation 41.7 fL (36.4-46.3); Red Blood Count 5.27 M/uL (4.7-6.1); White Blood Count 7.53 K/uL (4.8-10.8)
--- NOTE | 2021-02-17 18:27 | XRay Report ---
XR chest 1V portable CLINICAL HISTORY: SEPSIS COMPARISON STUDY: February 03, 2018 FINDINGS: No pneumothorax. No pleural effusion. No large infiltrates or consolidative lesions are seen. Cardiomediastinal silhouette is within normal limits in size. No significant pulmonary vascular congestion.. Aorta is tortuous. Osseous structures: unremarkable Redemonstration of midline sternotomy wires and surgical clips at the left upper lung region. IMPRESSION: 1. No large infiltrates or consolidative lesions. ACT 112: Negative or not required by law. The above report was generated using voice recognition software. It may contain grammatical, syntax o r spelling errors. Electronically signed by: Claudia Onofre DO 02/17/2021 6:25 PM
[2021-02-17 18:34] LABS: INR 1.1 (0.9-1.1); Partial Thromboplastin Ratio 1.3; Partial Thromboplastin Time 35.3 Seconds (21.0-31.0); Prothrombin Time 11.1 Seconds (9.0-12.0)
[2021-02-17 18:42] LABS: Albumin Level 3.3 gm/dl (3.4-5.0); BUN Creatinine Ratio 15.1 (10-20); Calcium 8.8 mg/dl (8.5-10.1); Creatinine Clr Calc Pharmacy 39.9 ml/min; Est GFR (Non-African American) 50.9 ml/min; Magnesium 1.7 mg/dl (1.8-2.4); Potassium 3.8 mmol/L (3.5-5.1)
[2021-02-17 19:05] LABS: Albumin Globulin Ratio 0.8 (0.9-2); Bilirubin,Total 1.7 mg/dl (0.2-1); Globulin 4.4 gm/dl (2.5-4.0); Total Protein 7.7 gm/dl (6.4-8.2); Troponin I 0.065 ng/ml (0-0.045)
[2021-02-17] MEDS ORDERED: OPTIRAY 320 125ml IV ONE (19:21)
[2021-02-17 19:25] LABS: Influenza A virus by PCR Negative (Negative); Influenza B virus by PCR Negative (Negative)
--- NOTE | 2021-02-17 20:27 | CT Scan Report ---
CT ANGIOGRAM OF THE CHEST CLINICAL HISTORY: ro PE COMPARISON STUDY: No previous studies for comparison. TECHNIQUE: Following the IV administration of of Optiray, CT angiogram of the thorax was performed fr om the thoracic inlet to the lung bases utilizing the pulmonary embolus protocol. Images are reviewed in the axial, sagittal, and coronal planes. IV contrast was administered without complication. MIP i maging was performed. A dose lowering technique was utilized adhering to the principles of ALARA. CT DOSE: 233.43 mGy.cm FINDINGS: There is adequate opacification within main pulmonary artery. No definite acute central pulmonary embolus is seen. Evaluation of peripheral branches of pulmonary a rtery limited due to motion artifact. Main pulmonary artery is normal in caliber. No evidence of right heart strain. There is minimal four-chamber cardiomegaly seen. No pericardial effusion demonstrated. Moderate coron sophie calcifications and possible stent within left anterior distending artery are seen. Status post CA BG. Aorta is normal in caliber. There are extensive soft plaques are seen within aortic wall from proxima l aspect of aortic arch and extending distally, associated with luminal irregularity and multiple are as of plaque ulceration and also like projection. Evaluation is limited due to nondedicated technique and insufficient opacification within distal portion of thoracic aorta. No definite aortic dissectio n is seen. Tracheobronchial tree is patent. Minimal atelectasis is seen at bilateral bases without large infiltr ates or consolidative lesions. Evaluation of pulmonary parenchyma is significantly limited due to motion artifact. Limited evaluation of upper abdominal viscera shows no evidence of acute abnormalities. Evaluation of osseous structures shows sternotomy changes and mild degenerative changes of the spine. IMPRESSION: 1. There is no definite central pulmonary embolus. Evaluation of peripheral branches of pulmonary ar helio is limited due to motion artifact. No secondary sign of pulmonary embolus. 2. Minimal four-chamber cardiomegaly. Status post CABG. 3. Extensive atherosclerosis of thoracic aorta with multiple areas of plaque ulceration and ulcer li ke projection. Please correlate above-mentioned findings with prior history of aortic abnormalities. ACT 112: Negative or not required by law. The above report was generated using voice recognition software. It may contain grammatical, syntax o r spelling errors. Electronically signed by: Claudia Onofre DO 02/17/2021 8:25 PM
[2021-02-17] MEDS ORDERED: POLYETHYLENE (MIRALAX) 17 GM PACK PO PRN (23:00)
[2021-02-17] MEDS ORDERED: ACETAMINOPHEN 325 MG TAB PO PRN (23:00)
[2021-02-17] MEDS ORDERED: NITROGLYCERIN SL 0.4 MG/TAB TAB SL PRN (23:00)
[2021-02-17] MEDS ORDERED: ONDANSETRON INJ 2 MG/ML 2 ML VIAL IV PRN (23:00)
[2021-02-17] MEDS ORDERED: MAGNESIUM SULFATE / D5W 1 GM/100 ML BAG IV ONE (23:15)
--- NOTE | 2021-02-17 23:27 | History and Physical Report ---
DATE OF ADMISSION: 02/17/2021. CHIEF COMPLAINT: Shortness of breath and fever. HISTORY OF PRESENT ILLNESS: This is a 75-year-old male with past medical history significant for hyperlipidemia, hypothyroidism, history of gout, history of abdominal aortic aneurysm, history of NH s/p stent, hypertension, history of CVA, history of carotid stenosis, chronic kidney disease stage III, , status post ablation of the ventricular arrhythmia, who lives with his daughter, presents with shortness of breath and fever since last night.Yesterday night, he felt short of breath and also developed fever. He denies any cough, no chest pain. No nausea, no vomiting, no abdominal pain, no diarrhea or constipation. Has some headache. He has some blurred vision from his cataracts, some neck pain from previous carotid surgery on the right side of the neck. No runny nose, no sore throat, no difficulty swallowing. Appetite is good. No nausea. The patient says he has trouble urinating. He says every night he goes to bathroom 10-15 times though his family doctor prescribed Flomax and Proscar two months ago, still this is not helping him. He could not sleep because of this and he is also having pain in the tip of his penis in the last couple of weeks. Denies any blood in the urine. No black stools or blood in the stools. He is requesting help with his sleep and with his frequent urination. The patient could not speak Samoan. He is from [place]. His daughter is in the room, who is helping with the translation. The patient had his COVID shots in October. ALLERGIES: No known drug allergies. PAST MEDICAL HISTORY: As mentioned above. PAST SURGICAL HISTORY: Ablation of arrhythmia, colonoscopy, cardiac catheterization, cystoscopy, EGDs, cataract surgery, right carotid endarterectomy. MEDICATIONS: The patient is on aspirin 81 mg p.o. daily, atorvastatin 80 mg p.o. daily, ferrous sulfate 325 mg p.o. daily, finasteride 5 mg p.o. daily, levothyroxine 50 mcg p.o. daily, lisinopril 10 mg p.o. daily, metoprolol succinate 50 mg p.o. daily, Protonix 20 mg per day, sucralfate 1 g p.o. at bedtime, Flomax 0.4 mg p.o. daily. FAMILY HISTORY: Significant for no family history on file. SOCIAL HISTORY: , lives with his daughter. Former smoker, quit in 2013, smoked 0.2 packs a day for 40 years. No alcohol use. No drug use. REVIEW OF SYSTEMS: As per HPI. Rest of the review of systems is negative. PHYSICAL EXAMINATION: GENERAL: The patient is of moderate build, not in acute distress. VITAL SIGNS: T-max 37.8, pulse 98, respiratory rate 24, blood pressure 170/81, oxygen 99% on room air. HEENT: Pupils equal, round and reactive to light. Oral mucosa moist. NECK: No JVD, no neck masses. CARDIOVASCULAR: S1 and S2 heard, regular rate and rhythm. No murmur, no gallop. RESPIRATORY SYSTEM: Normal AP diameter. No accessory muscle use. No wheezing, no crackles. ABDOMEN: Soft, bowel sounds present, nontender, no distention. CENTRAL NERVOUS SYSTEM: Cranial nerves II through XII are grossly intact, nonfocal. EXTREMITIES: No edema, no erythema. LABORATORY DATA: WBC 7.5, hemoglobin 16.2, hematocrit 47.2, platelets 124. PT 11.1, INR 1.1, APTT 35.3. Venous blood gases, pH of 7.4, pCO2 of 36, pO2 of 50, bicarbonate 25. Sodium 135, potassium 3.8, chloride 108, bicarbonate 24, BUN 21, creatinine 1.3, serum glucose 107. Lactate 1.4, calcium 8.8, magnesium 1.7, total bilirubin is 1.7, AST 47, ALT 66, alkaline phosphatase 113. Troponin 1 of 0.065. Procalcitonin 0.15. SARS-CoV-2 PCR negative. Influenza A and B negative. IMAGING DATA: CTA chest, no definite PE, extensive atherosclerosis of thoracic aorta with multiple areas of plaque ulceration and ulceration like projection. Chest x-ray, no acute findings. EKG: Sinus rhythm with frequent PVCs in the pattern of bigeminy. ASSESSMENT AND PLAN: This is a 75-year-old male who presents with fever and shortness of breath. 1. Fever and shortness of breath: CTA chest, no PE, no active infiltrates. Saturating okay on room air. Etiology unclear, possibly viral infection. We will treat empirically with antibiotic, Rocephin and doxycycline, and monitor the response. 2. Mild elevation of troponin and also bigeminy on the EKG and aortic lesions on the CAT scan. Will follow serial enzymes, echocardiogram, and consult cardiology in the am and await input. 3. History of coronary artery disease: Status post stent placement. On aspirin, statin, and beta nigel. 4. Chronic systolic and diastolic congestive heart failure: Last echo, EF of 35% to 40%,stage 2 diastolic congestive heart failure, on Toprol-XL and lisinopril. Not on any diuretics. We will monitor and follow the echo. 5. Hyperlipidemia: On statin. 6. Mild elevation of total bilirubin and thrombocytopenia: We will rule out any Lyme disease or anaplasmosis. Antibiotics as above and follow the repeat labs. 7. Hypertension: Continue lisinopril and metoprolol. Monitor his blood pressure. 8. History of benign prostatic hypertrophy: The patient is having ongoing problems with micturition, he is saying he is waking up 10-15 times in spite of being on medications for a couple of months. Continue his Flomax and Proscar. Will consult with urology in a.m. Also to follow up with a urinalysis for any urinary tract infection. 9. Carotid artery stenosis: Status post right carotid endarterectomy, on statin and aspirin. 10. Chronic kidney disease stage III: Presents with creatinine of 1.3. We will follow the labs. 11. History of abdominal aortic aneurysm: Needs followup. 12. Hypothyroidism: On Synthroid. 13. Gastroesophageal reflux disease: On Protonix and sucralfate. 14. History of cerebrovascular accident: On aspirin and statin. 15. Deep venous thrombosis prophylaxis: Heparin subcu. DISPOSITION: Closely monitor in the med tele. PT/OT prior to discharge. Social service to help with discharge planning. Job ID: [id number] [facility]
[2021-02-17] MEDS: DOXYCYCLINE HYCLATE 100 MG in DEXTROSE 5% 100 ML IV SCH (23:51)
[2021-02-18] MEDS: cefTRIAXone SODIUM 1,000 MG in DEXTROSE 5% 50 ML IV SCH ×2 (01:24→22:47)
[2021-02-18 05:46] LABS: Basophils # (auto) 0.02 K/uL (0-0.2); Basophils % (auto) 0.2 %; Eosinophils # (auto) 0.02 K/uL (0-0.5); Eosinophils % (auto) 0.2 %; Hematocrit (blood only) 46.4 % (42-52); Hemoglobin 16.5 g/dL (14.0-18.0); Immature Granulocytes # (auto) 0.02 K/uL (0.00-0.02); Immature Granulocytes % (auto) 0.2 %; Lymphocytes # (auto) 1.05 K/uL (1.2-3.4); Lymphocytes % (auto) 12.2 %; Mean Corpuscular Hemoglobin 31.4 pg (25-34); Mean Corpuscular Hgb Conc 35.6 g/dL (32-36); Mean Corpuscular Volume 88.4 fL (80-100); Monocytes # (auto) 1.07 K/uL (0.11-0.59); Monocytes % (auto) 12.5 %; Neutrophils # (auto) 6.41 K/uL (1.4-6.5); Neutrophils % (auto) 74.7 %; Platelet Count 109 K/uL (130-400); RDW Coefficient of Variation 12.8 % (11.5-14.5); RDW Standard Deviation 41.4 fL (36.4-46.3); Red Blood Count 5.25 M/uL (4.7-6.1); White Blood Count 8.59 K/uL (4.8-10.8)
[2021-02-18] MEDS: LEVOTHYROXINE SODIUM 50 MCG TABLET PO SCH (05:53)
[2021-02-18 06:08] LABS: Albumin Level 3.2 gm/dl (3.4-5.0); BUN Creatinine Ratio 15.5 (10-20); Calcium 8.7 mg/dl (8.5-10.1); Creatinine Clr Calc Pharmacy 40.2 ml/min; Est GFR (African American) 59.5 ml/min; Est GFR (Non-African American) 51.4 ml/min; Magnesium 2.1 mg/dl (1.8-2.4); Potassium 3.7 mmol/L (3.5-5.1)
[2021-02-18 06:16] LABS: Bilirubin Direct 0.6 mg/dl (0-0.2); Bilirubin,Total 1.5 mg/dl (0.2-1); Total Protein 7.4 gm/dl (6.4-8.2); Troponin I 0.073 ng/ml (0-0.045)
[2021-02-18 07:10] LABS: Lyme Ab IgG w/WB Rflx Negative (Negative); Lyme Ab IgM w/WB Rflx Negative (Negative)
[2021-02-18] MEDS: TAMSULOSIN HCL 0.4 MG CAP PO SCH (07:59)
[2021-02-18] MEDS: PANTOprazole 40 MG TAB PO SCH (08:00)
[2021-02-18] MEDS: HEPARIN SOD 5,000 UNIT/0.5 ML VIAL SQ SCH ×2 (08:00→21:08)
[2021-02-18] MEDS: METOPROLOL SUCC 50MG EXT REL TAB PO SCH (08:00)
[2021-02-18] MEDS: lisinopril 10 MG TAB PO SCH (08:01)
[2021-02-18] MEDS: FERROUS SULFATE 325 MG TAB PO SCH (08:01)
[2021-02-18] MEDS: ASPIRIN 81 MG ECTAB PO SCH (08:01)
[2021-02-18] MEDS: FINASTERIDE 5 MG TAB PO SCH (08:02)
[2021-02-18] MEDS: ATORVASTATIN 40 MG TAB PO SCH (08:02)
[2021-02-18] MEDS: SUCRALFATE 1 GM TAB PO SCH ×4 (08:02→21:06)
--- NOTE | 2021-02-18 09:34 | Electrocardiogram Report ---
Test Reason : Blood Pressure : / mmHG Vent. Rate : 100 BPM Atrial Rate : 100 BPM P-R Int : 150 ms QRS Dur : 068 ms QT Int : 342 ms P-R-T Axes : 067 -14 078 degrees QTc Int : 441 ms Sinus rhythm with frequent Premature ventricular complexes in a pattern of bigeminy Anteroseptal infarct (cited on or before 07-FEB-2018) Voltage criteria for left ventricular hypertrophy Abnormal ECG When compared with ECG of 07-FEB-2018 22:19, Premature ventricular complexes are now Present Confirmed by Jordy Pelaez ([id number]) on 02/18/2021 9:33:35 AM Referred By: REFERRED SELF Confirmed By:Jordy Pelaez
--- NOTE | 2021-02-18 09:59 | Electrocardiogram Report ---
Test Reason : Blood Pressure : / mmHG Vent. Rate : 113 BPM Atrial Rate : 113 BPM P-R Int : 156 ms QRS Dur : 070 ms QT Int : 334 ms P-R-T Axes : 077 024 069 degrees QTc Int : 458 ms Sinus tachycardia with frequent Premature ventricular complexes Voltage criteria for left ventricular hypertrophy When compared with ECG of 17-FEB-2021 18:36, (unconfirmed) No significant change was found Confirmed by Jordy Pelaez ([id number]) on 02/18/2021 9:58:46 AM Referred By: REFERRED SELF Confirmed By:Jordy Pelaez
--- NOTE | 2021-02-18 11:07 | Urology Consultation ---
Date of Consultation February 18, 2021 Assessment & Plan (1) Incomplete bladder emptying: Discussed with family (daughter) at length. Patient has been having episodes of severe frequency urgency and signs of obstruction with dribbling and incontinence. Has worsened over the last few months. Has been trialed on a few different medications. Had a similar episode approximately 2 years ago that did improve with antibiotics. Concern for possible fevers and chills and possible pneumonia with possibility of non-STEMI/DC. Long heart history. Patient has had episodes of gross hematuria in the past. Is not currently having episodes of blood in the urine but has had this prior. Has not been worked up for this. Does have considerable lower urinary tract symptoms which have drastically worsened. With history of stones, will check CT abd/pelvis to assess for emptying and possible obstruction. Nursing is going to collect a urine specimen to assess for blood. Cytology would also be helpful. Order placed. Patient is a former smoker. No family history of malignancy that the family is aware of. Patient's records reviewed. Coordinated with family. Recent imaging reviewed. Unable to fully assess kidneys on CTA of Chest. Patient's history reviewed and assessed. Does have history of stones. Patient on dual therapy for BPH. Continuing Alphablockers. Discussed lower urinary tract symptoms such as urgency, frequency, incomplete emptying, and nocturia. Discussed impact on patient's quality of life and bother related to these symptoms. Pharmaceutical options as well as possible surgical interventions were discussed. Conservative measure of hydration and double void with timed voiding were encouraged. Patient considering options. Otherwise plan to monitor and supportive care. We will await results of CT scan. Did discuss possibility bladder stones, strictures, BPH/prostatic obstruction and bladder outlet obstruction, and other possible causes. New Due to blood in the urine did discuss possibility of malignancy including bladder tumors and kidney lesions. Discussed possible causes of severe lower urinary tract symptoms. Did discuss likely exacerbation of issues due to acute illness. Patient has been on the du al therapy with sounds like only a few months. Initially medications did help likely due to the alpha-nigel however has not noticed a drastic improvement and is now doing considerably worse. We will continue with dual therapy. May take additional months up to 2 years for full effectiveness of finasteride. Patient is likely going to be on antibiotics for presumed pneumonia. With possibility of UTI/prostatitis would recommend utilizing antibiotics for approximately 10 to 14 days. Currently is on doxycycline which would be a good option for prostatitis and atypical UTIs. Cipro or Levaquin would be another consideration. Will monitor and await imaging. Plan for outpatient follow-up with likely cystoscopy (2) BPH w urinary obs/LUTS: (3) Kidney stone: (4) Elevated troponin: (5) Dyspnea: (6) Hematuria, gross: History of Present Illness Attending Physician: Bethany Jaffe, History of Present Illness Consult for urinary issues with incomplete emptying and urinary frequency. Family in room acting as intermediary and staff development manager. Patient from [place] and minimal understand of [place]. Patient has mild to moderate discomfort in pelvis and groin going to back and side in waves. Is dealing with acute illness. Came in with chest pain and illness. Likely NSTEMI. Has been deconditioned from this. Has decreased mobility significantly with acute issues. Patient has been having severe lower urinary tract symptoms which have increased in discomfort and burning and irritation. Is getting up multiple times per night and has had a considerable sleep disturbance. Has had gross hematuria in the past. Has seen his family doctor as well as his portrait artist who have been trying to assist with some of these issues. Patient has not had complete return to normal bowel function. Has had some minor urinary issues in the past. Denies bleeding. No severe nausea or vomiting. Currently no fevers. Discussed with patient multifactorial nature of urinary issues, retention, and incomplete bladder emptying. Discussed concerns and issues. Discussed decreased mobility and trouble voiding. Discussed issues related to deconditioning and weakened state. Discussed possibility that patient had more moderate to severe issues and with the acute illness and deconditioning these issues became more prevalent and obvious. Discussed bowel function and possible issues related to decrease in function and its relation to other pelvic organs and systems. Discussed different medications, will use during hospitalization and their effect on ability to empty. Allergies Allergy/AdvReac Type Severity Reaction Status Date / Time No Known Allergies Allergy Verified 02/17/21 21:13 Home Medications Medication Instructions Recorded Confirmed Type aspirin 81 mg tablet,delayed 81 mg PO QAM 05/09/18 02/17/21 History release (Aspir-) ferrous sulfate 325 mg (65 mg 325 mg PO QAM 05/09/18 02/17/21 History iron) tablet (FeroSul) finasteride 5 mg tablet 5 mg PO DAILY 05/09/18 02/17/21 History levothyroxine 50 mcg capsule 50 mcg PO QAM 05/09/18 02/17/21 History pantoprazole 20 mg tablet,delayed 20 mg PO QAM 05/09/18 02/17/21 History release (Protonix) sucralfate 1 gram tablet (Carafate) 1 g PO ACHS 05/09/18 02/17/21 History tamsulosin 0.4 mg capsule 0.4 mg PO DAILY 05/09/18 02/17/21 History atorvastatin 80 mg tablet 80 mg PO DAILY 02/17/21 02/17/21 History lisinopril 10 mg tablet 10 mg PO DAILY 02/17/21 02/17/21 History metoprolol succinate 50 mg 50 mg PO DAILY 02/17/21 02/17/21 History tablet,extended release 24 hr Patient History Medical History Atrial fibrillation DAUGHTER "THINKS HE HAS IT" Borderline diabetes BPH (benign prostatic hyperplasia) Deep vein thrombosis 2 YEARS AGO GERD (gastroesophageal reflux disease) GI bleed Gout Hyperlipidemia Hypertension Hypothyroidism Kidney stones Myocardial Infarction 2013 Osteoarthritis Stomach ulcer Stroke 2013 Surgical History H/O cardiac radiofrequency ablation SVT PER OLD RECORDS History of cardiac cath STENTS IN HEART History of colonoscopy History of coronary artery bypass graft 2 VESSELS 2014 AT [facility] History of cystoscopy STONE RETRIEVAL History of lithotripsy History of tooth extraction Social History Smoking Status: Former smoker Cigarettes Per Day: QUIT 10 YEARS AGO; Second Hand Exposure: No; Hx Alcohol Use: No Hx Substance Use: No Preferred Language: Honduran Communication Ability: Effective Communication Tools: Facial Expression and Other Eyewear Manufacturing Supervisor Required: Yes Beliefs That Will Affect Care: None Current Living Situation: Family Current Living Situation Comment: Lives with daughter Sharmila Other Information That Helps Us Care for You: No Feels Safe at Home: Yes Safety Concerns: Feels Safe At This Time Assistive Devices: None Review of Systems Review of Systems: All systems reviewed & are unremarkable except as noted in HPI & below Physical Exam Physical Exam: General: Alert and oriented x 3 in no acute distress. Patient is well nourished and well kept. HEENT: Normocephalic Atraumatic. Inspection normal. Cranial Nerves 2-12 Grossly intact. Nares are clear. Neck is supple. Normal inspection of face. Normal inspection of neck. Neurologic: No deficits on inspection. Baseline for motor function and sensory. Psychologic: Normal affect. Respiratory: Nonlabored. No use of accessory muscles. No tachypnea or dyspnea. Cardiovascular: No tachycardia Skin: [place] and Dry. No rashes or visible lesions. Extremities: Moving without issues. No motor deficits on inspection Lymphatics: No edema Abdomen: Soft Non-distended. No acites. No rebound or guarding. Results & Data ([facility]) Vital Signs (Past 12 Hours) Vital Signs Temp Pulse Pulse Resp BP BP Pulse Ox 02/18/21 08:00 106 H 02/18/21 07:15 36.8 C 109 H 16 152/93 H 93 02/18/21 04:00 37.3 C 106 H 20 139/84 92 02/17/21 23:15 102 H 02/17/21 23:04 37.8 C H 99 H 182/103 H 98 PG Care Time/CCT Total # of Minutes Spent Total Time Spent with Patient: Total time spent is greater than 50% in coordination of care (as documented) at patient's floor/unit and/or counseling patient: Coding Level of Care Code 97887 Inpt Consult Level 5 Diagnoses Incomplete bladder emptying R33.9 BPH w urinary obs/LUTS N40.1; N13.8 Kidney stone N20.0 Elevated troponin R77.8 Dyspnea R06.00 Dyspnea type: unspecified Hematuria, gross R31.0 (1) Dyspnea Dyspnea type: unspecified Qualified Code(s): R06.00 - Dyspnea, unspecified
--- NOTE | 2021-02-18 11:46 | Hospitalist Progress Note ---
Date of Service February 18, 2021 Assessment & Plan (1) Incomplete bladder emptying: Plan: Episodes of severe frequency, urgency and signs of obstruction with with dribbling and incontinence which is worsened over the past 3 months. In the setting of chills and fevers with leukocytosis, there is concern for infection. Continue antibiotics. Urine has not been collected. He has had a history of gross hematuria without work-up. With a history of stones will check CT abdomen pelvis without contrast to assess for emptying and possible obstruction. Patient is a former smoker. Continue antibiotics for 10 to 14 days. Continue tamsulosin and finasteride per home regimen. (2) CAD (coronary artery disease): Plan: chronic, denies any chest pain. Troponin is mildly elevated which is chronic since 2018. Troponins are unchanged since current admission. No current anginal symptoms or evidence of decompensated heart failure although he does report twice daily nitro administration for chest pain at home. This clinical picture is not consistent with acute coronary syndrome. Appreciate cardiology recommendations. Continue Lipitor, Toprol-XL for medical therapy. (3) Ischemic cardiomyopathy: Plan: chronic systolic dysfunction. Outside of generalized weakness for the past 10- 15 days, he is reporting no SOB with exertion or swelling. He has had a chronically depressed EF 35% and doesn't require regular diuretics as outpatient. (4) Hypothyroidism: Plan: cont home Synthroid. (5) Thoracic aorta atherosclerosis: Plan: noted on CT scan with no evidence of dissection. Continue medical management including beta-nigel aspirin and statin. 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 Daughter is also at the bedside and was helping facilitate communication. The patient was admitted for fevers and chills with some shortness of breath over the last 24 h. He feels his symptoms are improved after antibiotics and treatment overnight. He does feel his stomach is upset from pills he took this morning on an empty stomach. He is n.p.o. in case of procedure. He read denies any diarrhea. He does report having difficulty urinating with dysuria for the last 3 months. Urology was at the bedside and gathered from the patient that he is having episodes of severe frequency and urgency and signs of obstruction with dribbling and incontinence. He has been trialed on several medications with no improvement. Daughter does report one episode of gross hematuria 2 months ago but nothing persistent. She states the patient is very reluctant to talk about his urinary issues for fear of procedures. The patient also mentions having to use nitroglycerin twice daily for anginal pain. He has had a CABG in the past and feels the use of nitro has increased in frequency over the last 3 months. He denies any worsening shortness of breath and typically does regular walks push-ups and sit ups. Daughter denies this at bedside. The patient does report a worsening of generalized weakness in the last 10 to 15 days. Review of Systems Review of Systems: All systems were reviewed and negative except as indicated in HPI above. Physical Exam Physical Exam: CONSTITUTIONAL: WNWD, vitals as above, generally well- appearing EYES: normal conjunctivae, no scleral icterus ENT: external ear and nose normal, MMM RESPIRATORY: clear to auscultation bilaterally, no crackles, rales or wheezes, normal respiratory effort CARDIOVASCULAR: regular rate and rhythm, S1 and 2 heard without murmurs, gallops or rubs, no JVD, no peripheral edema GASTROINTESTINAL: soft, nontender, nondistended, no guarding MUSCULOSKELETAL: strength 5/5 throughout, head is normocephalic and atraumatic, neck supple, normal palpation of chest wall without tenderness SKIN: warm and dry NEUROLOGIC: CN 2-12 grossly intact, normal cognition, normal speech, no tremor PSYCHIATRIC: alert cooperative and oriented to person, place and time. Results & Data Results & Data ([facility]) Vital Signs (Past 12 Hours) Vital Signs Temp Pulse Pulse Resp BP BP Pulse Ox 02/18/21 11:17 36.8 C 47 L 16 108/61 95 02/18/21 08:00 106 H 02/18/21 07:15 36.8 C 109 H 16 152/93 H 93 02/18/21 04:00 37.3 C 106 H 20 139/84 92 Laboratory Results Short CBC 02/17/21 02/18/21 Range/Units 18:02 05:24 WBC 7.53 8.59 (4.8-10.8) K/uL Hgb 16.2 16.5 (14.0-18.0) g/dL Hct 47.2 46.4 (42-52) % Plt Count 124 L 109 L (130-400) K/uL BMP 02/17/21 02/18/21 18:02 05:24 Sodium 139 136 Potassium 3.8 3.7 Chloride 108 H 107 Carbon Dioxide 24 24 BUN 21 H 21 H Creatinine 1.36 1.35 Glucose 107 H 133 H Calcium 8.8 8.7 Cardiac Enzymes 02/17/21 02/18/21 02/18/21 Range/Units 18:02 05:24 09:12 Troponin I 0.065 H* 0.073 H* 0.064 H* (0-0.045) ng/ml Liver Function 02/17/21 02/18/21 Range/Units 18:02 05:24 Total Bilirubin 1.7 H 1.5 H (0.2-1) mg/dl Direct Bilirubin 0.6 H (0-0.2) mg/dl AST 47 H 35 (15-37) U/L ALT 66 56 (12-78) U/L Alkaline Phosphatase 213 H 191 H (45-117) U/L Albumin 3.3 L 3.2 L (3.4-5.0) gm/dl Medications Administered Current Inpatient Medications Acetaminophen (Acetaminophen 325 Mg Tab) 650 mg PO Q4H PRN PRN Reason: Pain or Fever Stop: 03/19/21 22:59 Aspirin (Aspirin 81 Mg Ectab) [facility] [place] Stop: 03/20/21 08:59 Last Admin: 02/18/21 08:01 Dose: 81 mg Documented by: Atorvastatin Calcium (Atorvastatin 40 Mg Tab) 80 mg PO DAILY [facility] Stop: 03/20/21 08:59 Last Admin: 02/18/21 08:02 Dose: 80 mg Documented by: Ferrous Sulfate (Ferrous Sulfate 325 Mg Tab) 325 mg PO QAM [facility] Stop: 03/20/21 08:59 Last Admin: 02/18/21 08:01 Dose: 325 mg Documented by: Finasteride (Finasteride 5 Mg Tab) 5 mg PO DAILY [facility] Stop: 03/20/21 08:59 Last Admin: 02/18/21 08:02 Dose: 5 mg Documented by: Heparin Sodium (Porcine) (Heparin Sod 5,000 Unit/0.5 Ml Vial) 5,000 units SQ Q12 [facility] Stop: 03/20/21 08:59 Last Admin: 02/18/21 08:00 Dose: 5,000 units Documented by: Ceftriaxone Sodium 1,000 mg/ (Dextrose) 50 mls @ 100 mls/hr IV Q24H [facility]; Protocol Stop: 02/24/21 23:29 Last Infusion: 02/18/21 02:40 Dose: Infused Documented by: Doxycycline Hyclate 100 mg/ (Dextrose) 110 mls @ 50 mls/hr IV Q12H [facility] Stop: 02/24/21 23:29 Last Infusion: 02/18/21 02:40 Dose: Infused Documented by: Levothyroxine Sodium (Levothyroxine Sodium 50 Mcg Tablet) 50 mcg PO DAILYBB [facility] Stop: 03/20/21 06:29 Last Admin: 02/18/21 05:53 Dose: 50 mcg Documented by: Lisinopril (Lisinopril 10 Mg Tab) 10 mg PO DAILY [facility] Stop: 03/20/21 08:59 Last Admin: 02/18/21 08:01 Dose: 10 mg Documented by: Metoprolol Succinate (Metoprolol Succ 50mg Ext Rel Tab) 50 mg PO DAILY [facility] Stop: 03/20/21 08:59 Last Admin: 02/18/21 08:00 Dose: 50 mg Documented by: Nitroglycerin (Nitroglycerin Sl 0.4 Mg/Tab Tab) 0.4 mg SL UD PRN PRN Reason: Chest Pain Stop: 03/19/21 22:59 Ondansetron HCl (Ondansetron Inj 2 Mg/Ml 2 Ml Vial) 4 mg IV Q6H PRN PRN Reason: Nausea Stop: 03/19/21 22:59 Pantoprazole Sodium (Pantoprazole 40 Mg Tab) 40 mg PO QAM [facility] Stop: 03/20/21 08:59 Last Admin: 02/18/21 08:00 Dose: 40 mg Documented by: Polyethylene Glycol (Polyethylene (Miralax) 17 Gm Pack) 17 gm PO DAILY PRN PRN Reason: Constipation Stop: 03/19/21 22:59 Sucralfate (Sucralfate 1 Gm Tab) 1 gm PO ACHS [facility] Stop: 03/20/21 07:29 Last Admin: 02/18/21 08:02 Dose: 1 gm Documented by: Tamsulosin HCl (Tamsulosin Hcl 0.4 Mg Cap) 0.4 mg PO DAILY [facility] Stop: 03/20/21 08:59 Last Admin: 02/18/21 07:59 Dose: 0.4 mg Documented by:
[2021-02-18] MEDS: DOXYCYCLINE HYCLATE 100 MG in DEXTROSE 5% 100 ML IV SCH ×2 (13:21→22:56)
--- NOTE | 2021-02-18 13:25 | CT Scan Report ---
CT OF THE ABDOMEN AND PELVIS WITHOUT CONTRAST CLINICAL HISTORY: Hematuria, History of Stones, UTI COMPARISON STUDY: CT of the abdomen and pelvis February 08, 2018. TECHNIQUE: Axial images of the abdomen and pelvis were obtained without IV contrast. Images were revi ewed in the axial, sagittal, and coronal planes. Automated exposure control was utilized for the melani dy. A dose lowering technique was utilized adhering to the principles of ALARA. FINDINGS: Lung bases are unremarkable. No pneumatosis, free air or portal venous gas is present. Ther e is possible slight nodularity of the liver surface. There is no biliary or pancreatic ductal dilata tion. There is no peripancreatic or pericholecystic infiltration. The appendix is normal. There is no evidence for a bowel obstruction. Evaluation of the abdomen and pelvis is suboptimal on this unenhan alejandra exam. Note is again made of multifocal aneurysmal dilatation of the infrarenal abdominal aorta. T he largest aneurysm measures 4.7 cm. It previously measured 3.8 cm on exam of February 08, 2018. There is mild aneurysmal dilatation of the right common iliac artery, measuring 2.1 cm. There is mild dilatat ion of the left common artery, measuring 1.6 cm. There is moderate plaque. No evidence for rupture. There is no hydronephrosis. Marked left renal atrophy is noted. Sensitivity for detection of urinary calculi is markedly diminished given excreted contrast from recent contrast-enhanced chest CT. There are several suspected left renal calculi that measure up to 3 mm. No definite ureteral calculi are id entified although sensitivity is diminished. Note is made of urothelial thickening of the left ureter and left collecting system. There is bladder wall thickening. Bladder wall appears trabeculated. IMPRESSION: 1. No hydronephrosis. Evaluation for urinary calculi compromised given excreted contrast from recent contrast-enhanced chest CT. Suspected left-sided nephrolithiasis. 2. Marked left renal atrophy. Urothelial thickening of the left ureter and left collecting system whi ch is nonspecific. This favors an infectious process. A neoplastic process is considered less likely but cannot be completely excluded. This could be correlated with urinalysis and urine cytology. 3. Increase in size of a infrarenal abdominal aortic aneurysm. This has multiple components. Largest aneurysm measures 4.7 cm (3.[address] of February 08, 2018). Dilatation of the bilateral common iliac ar teries, right greater than left. ACT 112: Negative or not required by law. Electronically signed by: Miquel Pickering M.D. 02/18/2021 1:24 PM
--- NOTE | 2021-02-18 13:43 | Cardiology Consultation ---
Date of Consultation February 18, 2021 Assessment & Plan (1) Elevated troponin: Mild, chronic troponin elevation recorded since 2018. Troponins unchanged during current admission. No anginal symptoms or evidence of decompensated heart failure. Findings are not indicative of acute coronary syndrome. (2) Thoracic aorta atherosclerosis: CT demonstrating atherosclerotic plaque of the thoracic aorta with ulceration. There is no evidence of dissection. Continued medical management recommended including aspirin, statin, and beta-nigel therapy. (3) Acute on chronic heart failure with reduced ejection fraction and diastolic dysfunction: Patient appears compensated/euvolemic. Repeat resting 2D transthoracic echocardiogram unchanged. (4) Frequent PVCs: Hypomagnesemia noted on admission. Frequent PVCs noted on prior Holter monitor. Continue beta-nigel therapy, replace potassium and magnesium as needed. (5) Kidney stone: I suspect fever related to urinary tract infection and possible nephrolithiasis. Management as per urology/internal medicine. History of Present Illness Reason for Consultation: Elevated troponin, aortic plaque on CT Requesting Physician: Dr. Sunshine Attending Physician: Bethany Jaffe DO History of Present Illness Complex 75-year-old patient admitted with fevers and left flank discomfort. CT demonstrating probable left-sided nephrolithiasis. A CT of the chest was also performed demonstrating aortic plaque with ulceration. No definitive evidence of dissection. Complex cardiovascular history noted below. Patient seen and examined at the bedside. Currently resting comfortably. Interpretation performed via his daughter as usual. Continues to complain of left lower flank discomfort. Notes dysuria for more than 1 week. Fevers occurring over the past 24 hours prompting admission. Denies chest pain or heaviness. No palpitations, syncope, or near syncope. Notes mild lightheadedness with positional change. Consultation requested due to minimally elevated troponins. Per chart review, troponins are chronically, mildly elevated. There is no significant delta. Bedside 2D transthoracic echocardiogram demonstrates ischemic cardiomyopathy. Findings unchanged when compared to prior. Telemetry demonstrating PVCs, sinus rhythm, and periods of ventricular bigeminy. Patient denies orthopnea, PND, or edema. Cardiac history: 1.Coronary artery disease status post multiple PCIs and bypass grafting x2, with most recent cardiac catheterization November 25, 2017, revealing severe chronic multivessel [place] coronary artery disease with 80-90% mid LAD in-stent restenosis, 40-50% ostial stenosis of the circumflex, and 100% occluded ostial OM1, widely patent vein graft to OM1 and mid LAD, and 60-70% stenosis at the LAD anastomosis though normal intracardiac filling pressures. 2.Postoperative atrial fibrillation. 3.History of SVT status post bypass tract ablation. 4.Ischemic cardiomyopathy. 5.Hypertension. 6.History of tobacco abuse. 7.Carotid stenosis followed by Vascular Surgery. 8.Miniscule abdominal aortic aneurysm. 9. Ischemic cardiomyopathy EF 35 to 40% Allergies Allergy/AdvReac Type Severity Reaction Status Date / Time No Known Allergies Allergy Verified 02/17/21 21:13 Home Medications Medication Instructions Recorded Confirmed Type aspirin 81 mg tablet,delayed 81 mg PO QAM 05/09/18 02/17/21 History release (Aspir-) ferrous sulfate 325 mg (65 mg 325 mg PO QAM 05/09/18 02/17/21 History iron) tablet (FeroSul) finasteride 5 mg tablet 5 mg PO DAILY 05/09/18 02/17/21 History levothyroxine 50 mcg capsule 50 mcg PO QAM 05/09/18 02/17/21 History pantoprazole 20 mg tablet,delayed 20 mg PO QAM 05/09/18 02/17/21 History release (Protonix) sucralfate 1 gram tablet (Carafate) 1 g PO ACHS 05/09/18 02/17/21 History tamsulosin 0.4 mg capsule 0.4 mg PO DAILY 05/09/18 02/17/21 History atorvastatin 80 mg tablet 80 mg PO DAILY 02/17/21 02/17/21 History lisinopril 10 mg tablet 10 mg PO DAILY 02/17/21 02/17/21 History metoprolol succinate 50 mg 50 mg PO DAILY 02/17/21 02/17/21 History tablet,extended release 24 hr ciprofloxacin HCl 250 mg tablet 250 mg PO BID #20 tab 02/19/21 Rx Patient History Medical History (Updated 02/18/21 @ 14:29 by Bethany Jaffe DO) Atrial fibrillation DAUGHTER "THINKS HE HAS IT" Borderline diabetes BPH (benign prostatic hyperplasia) Deep vein thrombosis 2 YEARS AGO GERD (gastroesophageal reflux disease) GI bleed Gout Hyperlipidemia Hypertension Hypothyroidism Kidney stones Myocardial Infarction 2013 Osteoarthritis Stomach ulcer Stroke 2012 Surgical History H/O cardiac radiofrequency ablation SVT PER OLD RECORDS History of cardiac cath STENTS IN HEART History of colonoscopy History of coronary artery bypass graft 2 VESSELS 2014 AT [facility] History of cystoscopy STONE RETRIEVAL History of lithotripsy History of tooth extraction Social History Smoking Status: Former smoker Cigarettes Per Day: QUIT 10 YEARS AGO; Second Hand Exposure: No; Hx Alcohol Use: No Hx Substance Use: No Preferred Language: Pashto Communication Ability: Effective Communication Tools: Other 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 All system reviews unremarkable per daughter as discharge planner.) Physical Exam Constitutional: well nourished; no acute distress and not ill appearing Respiratory: normal respiratory effort; no respiratory distress, no labored breathing and no retractions Auscultation: no crackles, no rales, no rhonchi and no wheezes Cardiovascular: Rate/Rhythm: regular rate and regular rhythm Heart Sounds: normal S1 and normal S2; no murmur Gastrointestinal (Abdomen): Inspection/Auscultation: abdomen normal to inspection and normal bowel sounds; abdomen not distended Percussion/Palpation: abdomen nontender, no guarding and abdomen not rigid Left lower flank posterior tenderness. Neurologic: CN's II-XI intact bilaterally and moves all extremities; no focal motor deficits Motor/Sensory: no tremor Results & Data ([facility]) Vital Signs (Past 12 Hours) Vital Signs Temp Pulse Pulse Resp BP BP Pulse Ox 02/18/21 11:17 36.8 C 47 L 16 108/61 95 02/18/21 08:00 106 H 02/18/21 07:15 36.8 C 109 H 16 152/93 H 93 02/18/21 04:00 37.3 C 106 H 20 139/84 92
[2021-02-18 15:47] LABS: Appearance Urine Clear (Clear); Bacteria Urine Automated Negative (Negative); Blood Urine Trace (Negative); Color Urine Orange; Epithelial Cell Urine Auto >30 /lpf (0-5); Glucose Urine UA Negative (Negative); Ketones Urine Trace (Negative); Leukocyte Esterase Urine 2+ (Negative); Nitrite Urine Positive (Negative); Protein Urine 1+ (Negative); Specific Gravity Urine 1.036 (1.000-1.030); Urobilinogen Urine Negative (Negative); WBC Urine Automated >30 /hpf (0-5); pH Urine 5.5 (4.5-7.5)
[2021-02-18 15:53] LABS: Bilirubin Urine 1+ (Negative)
[2021-02-18 16:32] LABS: Cast Urine Automated 0 /lpf (0-5)
[2021-02-19] MEDS: LEVOTHYROXINE SODIUM 50 MCG TABLET PO SCH (05:46)
[2021-02-19] MEDS: SUCRALFATE 1 GM TAB PO SCH ×2 (08:09→12:22)
[2021-02-19] MEDS: ASPIRIN 81 MG ECTAB PO SCH (08:10)
[2021-02-19] MEDS: PANTOprazole 40 MG TAB PO SCH (08:11)
[2021-02-19] MEDS: lisinopril 10 MG TAB PO SCH (08:11)
[2021-02-19] MEDS: ATORVASTATIN 40 MG TAB PO SCH (08:12)
[2021-02-19] MEDS: FERROUS SULFATE 325 MG TAB PO SCH (08:12)
[2021-02-19] MEDS: METOPROLOL SUCC 50MG EXT REL TAB PO SCH (08:12)
[2021-02-19] MEDS: TAMSULOSIN HCL 0.4 MG CAP PO SCH (08:13)
[2021-02-19] MEDS: FINASTERIDE 5 MG TAB PO SCH (08:13)
[2021-02-19] MEDS: HEPARIN SOD 5,000 UNIT/0.5 ML VIAL SQ SCH (08:13)
[2021-02-19 08:35] LABS: Hematocrit (blood only) 47.2 % (42-52); Hemoglobin 16.6 g/dL (14.0-18.0); Mean Corpuscular Hemoglobin 31.3 pg (25-34); Mean Corpuscular Hgb Conc 35.2 g/dL (32-36); Mean Corpuscular Volume 89.1 fL (80-100); Mean Platelet Volume 11.3 fL (7.4-10.4); Platelet Count 104 K/uL (130-400); RDW Coefficient of Variation 12.9 % (11.5-14.5); RDW Standard Deviation 42.2 fL (36.4-46.3); White Blood Count 7.45 K/uL (4.8-10.8)
[2021-02-19 08:51] LABS: BUN Creatinine Ratio 19.5 (10-20); Calcium 8.8 mg/dl (8.5-10.1); Creatinine Clr Calc Pharmacy 30.3 ml/min; Est GFR (African American) 42.3 ml/min; Est GFR (Non-African American) 36.5 ml/min
[2021-02-19] MEDS: DOXYCYCLINE HYCLATE 100 MG in DEXTROSE 5% 100 ML IV SCH (12:22)
--- NOTE | 2021-02-19 12:53 | Discharge Summary ---
Date of Service February 19, 2021 Admission HPI Per Admitting Provider HISTORY OF PRESENT ILLNESS: This is a 75-year-old male with past medical history significant for hyperlipidemia, hypothyroidism, history of gout, history of abdominal aortic aneurysm, history of MS s/p stent, hypertension, history of CVA, history of carotid stenosis, chronic kidney disease stage III, , status post ablation of the ventricular arrhythmia, who lives with his daughter, presents with shortness of breath and fever since last night.Yesterday night, he felt short of breath and also developed fever. He denies any cough, no chest pain. No nausea, no vomiting, no abdominal pain, no diarrhea or constipation. Has some headache. He has some blurred vision from his cataracts, some neck pain from previous carotid surgery on the right side of the neck. No runny nose, no sore throat, no difficulty swallowing. Appetite is good. No nausea. The patient says he has trouble urinating. He says every night he goes to bathroom 10-15 times though his family doctor prescribed Flomax and Proscar two months ago, still this is not helping him. He could not sleep because of this and he is also having pain in the tip of his penis in the last couple of weeks. Denies any blood in the urine. No black stools or blood in the stools. He is requesting help with his sleep and with his frequent urination. The patient could not speak Chinese. He is from [place]. His daughter is in the room, who is helping with the translation. The patient had his COVID shots in October. Admission Exam Per Admitting Provider PHYSICAL EXAMINATION: GENERAL: The patient is of moderate build, not in acute distress. VITAL SIGNS: T-max 37.8, pulse 98, respiratory rate 24, blood pressure 170/81, oxygen 99% on room air. HEENT: Pupils equal, round and reactive to light. Oral mucosa moist. NECK: No JVD, no neck masses. CARDIOVASCULAR: S1 and S2 heard, regular rate and rhythm. No murmur, no gallop. RESPIRATORY SYSTEM: Normal AP diameter. No accessory muscle use. No wheezing, no crackles. ABDOMEN: Soft, bowel sounds present, nontender, no distention. CENTRAL NERVOUS SYSTEM: Cranial nerves II through XII are grossly intact, nonf ocal. EXTREMITIES: No edema, no erythema. Principal Diagnosis Acute pyelonephritis Nephrolithiasis Incomplete bladder emptying Benign Prostatic Hypertrophy with lower urinary tract symptoms Chronic Kidney Disease, Stage III Elevated troponin Ischemic cardiomyopathy Discharge Exam CONSTITUTIONAL: WNWD, vitals as above, generally well-appearing EYES: normal conjunctivae, no scleral icterus ENT: external ear and nose normal, MMM RESPIRATORY: clear to auscultation bilaterally, no crackles, rales or wheezes, normal respiratory effort CARDIOVASCULAR: regular rate and rhythm, S1 and 2 heard without murmurs, gallops or rubs, no JVD, no peripheral edema GASTROINTESTINAL: soft, nontender, nondistended, no guarding MUSCULOSKELETAL: strength 5/5 throughout, head is normocephalic and atraumatic, neck supple, normal palpation of chest wall without tenderness SKIN: warm and dry NEUROLOGIC: CN 2-12 grossly intact, normal cognition, normal speech, no tremor PSYCHIATRIC: alert cooperative and oriented to person, place and time. Discharge Data Allergies Allergy/AdvReac Type Severity Reaction Status Date / Time No Known Allergies Allergy Verified 02/17/21 21:13 Consultations 02/17/21 20:50 ED Decision to Admit Stat 02/18/21 08:00 Consult Cardiology Routine Consult Urology Routine Ordered Studies Laboratory Results WBC 7.45 K/uL (4.8-10.8) 02/19/21 08:24 RBC 5.30 M/uL (4.7-6.1) 02/19/21 08:24 Hgb 16.6 g/dL (14.0-18.0) 02/19/21 08:24 Hct 47.2 % (42-52) 02/19/21 08:24 MCV 89.1 fL (80-100) 02/19/21 08:24 MCH 31.3 pg (25-34) 02/19/21 08:24 MCHC 35.2 g/dL (32-36) 02/19/21 08:24 RDW Std Deviation 42.2 fL (36.4-46.3) 02/19/21 08:24 RDW Coeff of Alexandra 12.9 % (11.5-14.5) 02/19/21 08:24 Plt Count 104 K/uL (130-400) L 02/19/21 08:24 MPV 11.3 fL (7.4-10.4) H 02/19/21 08:24 Immature Gran % (Auto) 0.2 % 02/18/21 05:24 Neut % (Auto) 74.7 % 02/18/21 05:24 Lymph % (Auto) 12.2 % 02/18/21 05:24 Gates % (Auto) 12.5 % 02/18/21 05:24 Eos % (Auto) 0.2 % 02/18/21 05:24 Baso % (Auto) 0.2 % 02/18/21 05:24 Neut # (Auto) 6.41 K/uL (1.4-6.5) 02/18/21 05:24 Lymph # (Auto) 1.05 K/uL (1.2-3.4) L 02/18/21 05:24 Gates # (Auto) 1.07 K/uL (0.11-0.59) H 02/18/21 05:24 Eos # (Auto) 0.02 K/uL (0-0.5) 02/18/21 05:24 Baso # (Auto) 0.02 K/uL (0-0.2) 02/18/21 05:24 Immature Gran # (Auto) 0.02 K/uL (0.00-0.02) 02/18/21 05:24 PT 11.1 Seconds (9.0-12.0) 02/17/21 18:02 INR 1.1 (0.9-1.1) 02/17/21 18:02 APTT 35.3 Seconds (21.0-31.0) H 02/17/21 18:02 PTT Ratio 1.3 02/17/21 18:02 VBG pH 7.45 (7.36-7.41) H 02/17/21 18:02 VBG pCO2 36 mmHg (38-50) L 02/17/21 18:02 VBG pO2 50 mmHg 02/17/21 18:02 VBG HCO3 25 mmol/L 02/17/21 18:02 VBG O2 Saturation 86.8 % 02/17/21 18:02 VBG Base Excess 0.9 mEq/L 02/17/21 18:02 Barometric Pressure 735.2 mm/Hg 02/17/21 18:02 Sodium 136 mmol/L (136-145) 02/19/21 08:24 Potassium 4.0 mmol/L (3.5-5.1) 02/19/21 08:24 Chloride 107 mmol/L (98-107) 02/19/21 08:24 Carbon Dioxide 22 mmol/L (21-32) 02/19/21 08:24 Anion Gap 7.0 (3-11) 02/19/21 08:24 BUN 35 mg/dl (7-18) H D 02/19/21 08:24 Creatinine 1.79 mg/dl (0.6-1.4) H D 02/19/21 08:24 Est Cr Clr Drug Dosing 30.3 ml/min 02/19/21 08:24 Est GFR ( Amer) 42.3 ml/min 02/19/21 08:24 Est GFR (Non-Af Amer) 36.5 ml/min 02/19/21 08:24 BUN/Creatinine Ratio 19.5 (10-20) 02/19/21 08:24 Glucose 171 mg/dl (70-99) H 02/19/21 08:24 Lactate 1.4 mmol/L (0.4-2.0) 02/17/21 18:02 Calcium 8.8 mg/dl (8.5-10.1) 02/19/21 08:24 Magnesium 2.1 mg/dl (1.8-2.4) 02/18/21 05:24 Total Bilirubin 1.5 mg/dl (0.2-1) H 02/18/21 05:24 Direct Bilirubin 0.6 mg/dl (0-0.2) H 02/18/21 05:24 AST 35 U/L (15-37) 02/18/21 05:24 ALT 56 U/L (12-78) 02/18/21 05:24 Alkaline Phosphatase 191 U/L (45-117) H 02/18/21 05:24 Troponin I 0.064 ng/ml (0-0.045) H* 02/18/21 09:12 Total Protein 7.4 gm/dl (6.4-8.2) 02/18/21 05:24 Albumin 3.2 gm/dl (3.4-5.0) L 02/18/21 05:24 Globulin 4.4 gm/dl (2.5-4.0) H 02/17/21 18:02 Albumin/Globulin Ratio 0.8 (0.9-2) L 02/17/21 18:02 Procalcitonin 0.15 ng/ml (0-0.5) 02/17/21 18:02 Urine Color Carbon 02/18/21 14:52 Urine Appearance Clear (Clear) 02/18/21 14:52 Urine pH 5.5 (4.5-7.5) 02/18/21 14:52 Ur Specific Macy 1.036 (1.000-1.030) H 02/18/21 14:52 Urine Protein 1+ (Negative) H 02/18/21 14:52 Urine Glucose (UA) Negative (Negative) 02/18/21 14:52 Urine Ketones Trace (Negative) H 02/18/21 14:52 Urine Blood Trace (Negative) H 02/18/21 14:52 Urine Nitrite Positive (Negative) A 02/18/21 14:52 Urine Bilirubin 1+ (Negative) H 02/18/21 14:52 Urine Urobilinogen Negative (Negative) 02/18/21 14:52 Ur Leukocyte Esterase 2+ (Negative) H 02/18/21 14:52 Urine WBC (Auto) >30 /hpf (0-5) H 02/18/21 14:52 Urine RBC (Auto) 5-10 /hpf (0-4) H 02/18/21 14:52 U Hyaline Cast (Auto) 0 /lpf (0-5) 02/18/21 14:52 U Epithel Cells (Auto) >30 /lpf (0-5) H 02/18/21 14:52 Urine Bacteria (Auto) Negative (Negative) 02/18/21 14:52 Urine Yeast Not Reportable 02/18/21 14:52 Anaplasma Smear See Comment 02/18/21 05:24 Lyme Disease IgG Ab Negative (Negative) 02/18/21 05:24 Lyme Disease IgM Ab Negative (Negative) 02/18/21 05:24 COVID-19 Eval Order Covid19 at [facility] 02/17/21 18:40 SARS-CoV-2 (PCR) NEGATIVE (Negative) 02/17/21 18:40 Influ A Molecular Assay Negative (Negative) 02/17/21 18:40 Influ B Molecular Assay Negative (Negative) 02/17/21 18:40 Impressions Chest X-Ray 02/17/21 17:40 XR chest 1V portable CLINICAL HISTORY: SEPSIS COMPARISON STUDY: February 03, 2018 FINDINGS: No pneumothorax. No pleural effusion. No large infiltrates or consolidative lesions are seen. Cardiomediastinal silhouette is within normal limits in size. No significant pulmonary vascular congestion.. Aorta is tortuous. Osseous structures: unremarkable Redemonstration of midline sternotomy wires and surgical clips at the left upper lung region. IMPRESSION: 1. No large infiltrates or consolidative lesions. ACT 112: Negative or not required by law. The above report was generated using voice recognition software. It may contain grammatical, syntax or spelling errors. Electronically signed by: Claudia Onofre DO 02/17/2021 6:25 PM Chest CTA 02/17/21 18:45 CT ANGIOGRAM OF THE CHEST CLINICAL HISTORY: ro PE COMPARISON STUDY: No previous studies for comparison. TECHNIQUE: Following the IV administration of of Optiray, CT angiogram of the thorax was performed from the thoracic inlet to the lung bases utilizing the pulmonary embolus protocol. Images are reviewed in the axial, sagittal, and coronal planes. IV contrast was administered without complication. MIP imaging was performed. A dose lowering technique was utilized adhering to the principles of ALARA. CT DOSE: 233.43 mGy.cm FINDINGS: There is adequate opacification within main pulmonary artery. No definite acute central pulmonary embolus is seen. Evaluation of peripheral branches of pulmonary artery limited due to motion artifact. Main pulmonary artery is normal in caliber. No evidence of right heart strain. There is minimal four-chamber cardiomegaly seen. No pericardial effusion demonstrated. Moderate coronary calcifications and possible stent within left anterior distending artery are seen. Status post CABG. Aorta is normal in caliber. There are extensive soft plaques are seen within aortic wall from proximal aspect of aortic arch and extending distally, associated with luminal irregularity and multiple areas of plaque ulceration and also like projection. Evaluation is limited due to nondedicated technique and insufficient opacification within distal portion of thoracic aorta. No definite aortic dissection is seen. Tracheobronchial tree is patent. Minimal atelectasis is seen at bilateral bases without large infiltrates or consolidative lesions. Evaluation of pulmonary parenchyma is significantly limited due to motion artifact. Limited evaluation of upper abdominal viscera shows no evidence of acute abnormalities. Evaluation of osseous structures shows sternotomy changes and mild degenerative changes of the spine. IMPRESSION: 1. There is no definite central pulmonary embolus. Evaluation of peripheral branches of pulmonary artery is limited due to motion artifact. No secondary sign of pulmonary embolus. 2. Minimal four-chamber cardiomegaly. Status post CABG. 3. Extensive atherosclerosis of thoracic aorta with multiple areas of plaque ulceration and ulcer like projection. Please correlate above-mentioned findings with prior history of aortic abnormalities. ACT 112: Negative or not required by law. The above report was generated using voice recognition software. It may contain grammatical, syntax or spelling errors. Electronically signed by: Claudia Onofre DO 02/17/2021 8:25 PM Abdomen/Pelvis CT 02/18/21 12:02 CT OF THE ABDOMEN AND PELVIS WITHOUT CONTRAST CLINICAL HISTORY: Hematuria, History of Stones, UTI COMPARISON STUDY: CT of the abdomen and pelvis February 08, 2018. TECHNIQUE: Axial images of the abdomen and pelvis were obtained without IV contrast. Images were reviewed in the axial, sagittal, and coronal planes. Automated exposure control was utilized for the study. A dose lowering technique was utilized adhering to the principles of ALARA. FINDINGS: Lung bases are unremarkable. No pneumatosis, free air or portal venous gas is present. There is possible slight nodularity of the liver surface. There is no biliary or pancreatic ductal dilatation. There is no peripancreatic or pericholecystic infiltration. The appendix is normal. There is no evidence for a bowel obstruction. Evaluation of the abdomen and pelvis is suboptimal on this unenhanced exam. Note is again made of multifocal aneurysmal dilatation of the infrarenal abdominal aorta. The largest aneurysm measures 4.7 cm. It previously measured 3.8 cm on exam of February 08, 2018. There is mild aneurysmal dilatation of the right common iliac artery, measuring 2.1 cm. There is mild dilatation of the left common artery, measuring 1.6 cm. There is moderate plaque. No evidence for rupture. There is no hydronephrosis. Marked left renal atrophy is noted. Sensitivity for detection of urinary calculi is markedly diminished given excreted contrast from recent contrast-enhanced chest CT. There are several suspected left renal calculi that measure up to 3 mm. No definite ureteral calculi are identified although sensitivity is diminished. Note is made of urothelial thickening of the left ureter and left collecting system. There is bladder wall thickening. Bladder wall appears trabeculated. IMPRESSION: 1. No hydronephrosis. Evaluation for urinary calculi compromised given excreted contrast from recent contrast-enhanced chest CT. Suspected left-sided nephrolithiasis. 2. Marked left renal atrophy. Urothelial thickening of the left ureter and left collecting system which is nonspecific. This favors an infectious process. A neoplastic process is considered less likely but cannot be completely excluded. This could be correlated with urinalysis and urine cytology. 3. Increase in size of a infrarenal abdominal aortic aneurysm. This has multiple components. Largest aneurysm measures 4.7 cm (3.[address] of February 08, 2018). Dilatation of the bilateral common iliac arteries, right greater than left. ACT 112: Negative or not required by law. Electronically signed by: Miquel Pickering M.D. 02/18/2021 1:24 PM Hospital Course (1) Acute pyelonephritis: Started on ceftriaxone and transitioned to cipro at discharge. Urine culture was taken after antibiotics were started, therefore, likely a false negative. A small amount of yeast was found in the culture, however, this was only 3K CFU and no treatment was given. (2) Incomplete bladder emptying: Episodes of severe frequency, urgency and signs of obstruction with with dribbling and incontinence which is worsened over the past 3 months. In the setting of chills and fevers with leukocytosis, this is likely related to infection. Continue antibiotics. With a history of stones Continue antibiotics for 10 to 14 days. Continue tamsulosin and finasteride per home regimen. Outpatient follow-up for cystoscopy recommended. Patient has a h/o gross hematuria and h/o smoking. (3) CAD (coronary artery disease): chronic, denies any chest pain. Troponin is mildly elevated which is chronic since 2018. Troponins are unchanged since current admission. No current anginal symptoms or evidence of decompensated heart failure although he does report twice daily nitro administration for chest pain at home. This clinical picture is inconsistent with acute coronary syndrome. Appreciate cardiology recommendations. Continue Lipitor, Toprol-XL for medical therapy. (4) Ischemic cardiomyopathy: chronic systolic dysfunction. Outside of generalized weakness for the past 10-15 days, he is reporting no SOB with exertion or swelling. He has had a chronically depressed EF 35% and doesn't require regular diuretics as outpatient. (5) Hypothyroidism: cont home Synthroid. (6) Thoracic aorta atherosclerosis: noted on CT scan with no evidence of dissection. Continue medical management including beta-nigel aspirin and statin. Discussed this finding with patient and his daughter on discharge. (7) DVT prophylaxis: SCD Full code Disposition-to home DO Liz Case Total Time Total Time Spent Total Time Spent (In Minutes): 60 Discharge Plan Discharge Items Patient Disposition: Home - Self-Care Reason For Visit: SOB Discharge Diagnosis: Acute pyelonephritis Nephrolithiasis Incomplete bladder emptying Benign Prostatic Hypertrophy with lower urinary tract symptoms Chronic Kidney Disease, Stage III Elevated troponin Ischemic cardiomyopathy Condition on Discharge: Good Activity: Resume your previous activity Non-emergency contact: Primary Care Provider Call non-emergency contact if: you have any medication questions, your symptoms worsen, your pain is not controlled, your pain is worsening, your pain is unusual for you, your pain is concerning for you and you have a fever Follow-up/Referrals: PCP,NEHA [Primary Care Provider] - Diet: Regular Addtl Attending Provider Instructions: Please take all medications as instructed on discharge list below. You are being given a course of antibiotics to treat an infection in your kidney/bladder. After this is complete, please followup with Dr. Keyes from [facility]. Further imaging or workup may be re quired. On your chest CT scan, there was an incidental finding of extensive plaque in the thoracic aorta with multiple areas of plaque ulceration and ulcer like projection. There is no evidence of dissection. Follow-up with a vascular surgeon may be warranted, but would review this with Dr. Bates or your judicial law clerk, Dr. Khoa conklin. Please continue current medical therapy for heart disease including baby aspirin, atorvastatin, and metoprolol. It is recommended that you follow up with Dr. Bates within one week of discharge from the hospital. Your kidney function is at your baseline, however, repeat blood work to check this (basic metabolic panel) while on the antibiotics may be considered. Additionally, this appointment will be important to review all of his medications and ensure he is doing well on them. He may also need a referral to Urology for insurance purposes. It was a pleasure taking care of you! Please call if you have any questions or problems. You can reach a [facility] hospitalist on duty at [facility] 24 hours a day by calling [phone]. Take care of yourself. DO Liz Case Pending Studies at Discharge: No Stand-Alone Forms: [facility] Medications and DC Order Prescriptions: New ciprofloxacin HCl 250 mg tablet 250 mg PO BID Qty: 20 RF: 0 Continued sucralfate [Carafate] 1 gram Tablet 1 g PO ACHS RF: 0 aspirin [Aspir-81] 81 mg Tablet,Delayed Release (Dr/Ec) 81 mg PO QAM RF: 0 pantoprazole [Protonix] 20 mg Tablet,Delayed Release (Dr/Ec) 20 mg PO QAM RF: 0 tamsulosin 0.4 mg Capsule 0.4 mg PO DAILY RF: 0 ferrous sulfate [FeroSul] 325 mg (65 mg iron) Tablet 325 mg PO QAM RF: 0 finasteride 5 mg Tablet 5 mg PO DAILY RF: 0 levothyroxine 50 mcg Capsule 50 mcg PO QAM RF: 0 atorvastatin 80 mg tablet 80 mg PO DAILY RF: 0 metoprolol succinate 50 mg tablet extended release 24 hr 50 mg PO DAILY RF: 0 lisinopril 10 mg tablet 10 mg PO DAILY RF: 0 Discharge Orders: Discharge Order (Routine); Ordered 02/19/21 Ordered By: Bethany Jaffe Admission Data Admit Date/Time: 02/17/21 21:55 Attending Provider: Bethany Jaffe Admit Provider: Randolph Sunshine Primary Care Provider: PCP,NO Other Providers: Randolph Sunshine ; Seven Couch ; Jamarcus Wood ; Nasir Wood ; Mehrdad Shay ; Emmett Lombardi ; Chace Sorto ; Naida Rebollar ; Tanya Del Castillo ; Danitza Ribeiro ; Aden Nieto ; Nito Yan ; Seven Lanza ; Rc Dobbins ; Brittney Garcia ; Judson Keyes ; Julienne Dias ; Idania Joe ; Jaz White ; Frank Mijares ; Mehrdad Irizarry ; Rosetta Robbins ; Caridad Lindsay Other Interventions: Discharge Summary Assessment (RN) Last Done: 02/19/21 13:03
--- NOTE | 2021-02-19 13:35 | Cardiology Progress Note ---
Date of Service February 19, 2021 Assessment & Plan (1) Elevated troponin: Plan: Mild, chronic troponin elevation recorded since 2018. Troponins unchanged during current admission acute coronary syndrome. No anginal symptoms or evidence of decompensated heart failure. (2) Thoracic aorta atherosclerosis: Plan: CT demonstrating atherosclerotic plaque of the thoracic aorta with ulceration. There is no evidence of dissection. Continued medical management recommended including aspirin, statin, and beta-nigel therapy. (3) Acute on chronic heart failure with reduced ejection fraction and diastolic dysfunction: Plan: Patient appears compensated/euvolemic. Repeat resting 2D transthoracic echocardiogram unchanged. (4) Frequent PVCs: Plan: Improved with magnesium supplementation and treatment of underlying UTI. Continue beta-nigel therapy, replace potassium and magnesium as needed. (5) Kidney stone: Plan: I suspect fever related to urinary tract infection and possible nephrolithiasis. Elevated creatinine today. Encourage hydration. Management as per urology/internal medicine. Admission and Anticipated Discharge Date Admission Date: February 17, 2021 Subjective Patient seen and examined the bedside. Urinary symptoms and flank pain have resolved with antibiotic therapy. He is anxiously awaiting discharge. Denies chest pain or shortness of breath. Telemetry reveals sinus rhythm at 70 bpm. Occasional premature ventricular complexes. No recurrent ventricular bigeminy. Daughter is present at bedside. She translates per patient preference. No orthopnea, PND, or lower extremity edema. Review of Systems Review of Systems: All systems reviewed & are unremarkable except as noted in Subjective (ROS obtained via daughter as sandwich maker) Physical Exam Constitutional: well nourished; no acute distress and not ill appearing Respiratory: normal respiratory effort; no respiratory distress, no labored breathing and no retractions Auscultation: no crackles, no rales, no rhonchi and no wheezes Cardiovascular: Rate/Rhythm: regular rate and regular rhythm Heart Sounds: normal S1 and normal S2; no murmur Gastrointestinal (Abdomen): Inspection/Auscultation: abdomen normal to inspection and normal bowel sounds; abdomen not distended Percussion/Palpation: abdomen nontender, no guarding and abdomen not rigid Neurologic: CN's II-XI intact bilaterally and moves all extremities; no focal motor deficits Motor/Sensory: no tremor Results & Data ([facility]) Vital Signs (Past 12 Hours) Vital Signs Temp Pulse Pulse Resp BP BP Pulse Ox 02/19/21 13:03 36.7 C 79 18 104/66 147/81 H 95 02/19/21 11:02 36.7 C 79 18 147/81 H 95 02/19/21 08:00 84 02/19/21 07:08 37.1 C 70 18 153/88 H 95 02/19/21 03:00 36.5 C 87 20 130/83 95
== END 2021-02-19 13:17 | disposition home or self-care (01) | DRG 689 ==
LOC: ED 16:59 → 2W 21:55 → SUATTDRO 21:55 → 2W 22:42